=== PATIENT | female | born 1995 | race Caucasian/White ===

== ENCOUNTER → 2017-05-26 | Outpatient (CLI) | payer OTHER | END | disposition home or self-care (01) | LOC: C.PAPS 09:39 | PROVIDERS: ATTEND Obstetrics & Gynecology | DX: Z01.419 Encounter for gynecological examination (general) (routine) without abnormal findings (principal) ==

== ENCOUNTER 2020-02-21 07:33 | Inpatient (IN) ==
[2020-02-21] MEDS ORDERED: OXYTOCIN 30 UNITS/500 ML BAG IV PRN ×2 (08:16)
[2020-02-21 08:30] LABS: Hematocrit (blood only) 35.1 % (37-47); Hemoglobin 11.9 g/dL (12.0-16.0); Mean Corpuscular Hemoglobin 30.5 pg (25-34); Mean Platelet Volume 8.9 fL (7.4-10.4); Platelet Count 191 K/uL (130-400); RDW Coefficient of Variation 13.2 % (11.5-14.5); RDW Standard Deviation 43.2 fL (36.4-46.3); White Blood Count 7.92 K/uL (4.8-10.8)
[2020-02-21 08:33] LABS: Mean Corpuscular Hgb Conc 33.9 g/dL (32-36)
--- NOTE | 2020-02-21 08:39 | History & Physical Report ---
Date of Service February 21, 2020 Assessment & Plan (1) Prolonged , antepartum: cervix still needs ripening. Discussed another attempt at sevilla placement or proceeding with cytotec. r/b of both reviewed. She would like to start with cytotec. Then consider pit +/- sevilla. arom when indicated. fetus category one. anticipate . History of Present Illness Chief Complaint: induction Primary Care Provider: JAROD Guzman Patient is a 24yowf with iup at 41 weeks who presents to labor and delivery for postdates induction. Patient notes some intermittent contractions. no lof/vb. +fm. has essentially been uncomplicated. Attempt to place sevilla for cervical ripening last night was unsuccessful. labs--O+/ab-/ri/rprnr/hepb-/hiv-/gc/ct 1/panorama low risk/ gtt x 2 nl/ gbs neg/ declined cf/sma/afp Allergies Allergy/AdvReac Type Severity Reaction Status Date / Time No Known Allergies Allergy Verified 02/20/20 12:36 Home Medications Home Medications Medication Instructions Recorded Confirmed Type [id number] oil 1 tab PO DAILY 07/12/19 02/21/20 History ferrous sulfate 325 mg (65 mg 325 mg PO DAILY 12/13/19 02/21/20 History iron) tablet,delayed release Patient History Medical History Encounter for anatomic survey Varicella Surgical History No pertinent past surgical history Family History Grandfather (Paternal) Cardiac disorder Myocardial infarction Uncle Coronary heart disease Hypercholesteremia Father Hypercholesteremia Hypertension Mother Hypertension Thyroid disease Multiple gestation Grandmother (Maternal) Malignant neoplasm of cervix Sister Gestational diabetes Social History Preferred Language: Kyr[place] Communication Ability: Effective Visual Impairment: No Limitations Hearing Ability: Normal Acoustic Engineer Required: No Beliefs That Will Affect Care: None marital status: marital status details: Harris Mehta (25) [phone] Current Living Situation: Spouse current occupational status: employed 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 @ [employer] Other Information That Helps Us Care for You: No Feels Safe at Home: Yes Safety Concerns: Feels Safe At This Time Smoking Status: Never smoker Do You Dip or Chew Tobacco: No ; Second Hand Exposure: No ; Tobacco Cessation Education Requested by Patient: No Hx Alcohol Use: No Hx Substance Use: No Dental Care, Regularly: Yes Physical Activity Frequency: 1-2 Times per Week Seatbelt Use: always 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
[2020-02-21] MEDS: miSOPROStoL 25 MCG TAB PV SCH ×4 (08:59→21:29)
[2020-02-21] MEDS ORDERED: miSOPROStoL 25 MCG TAB PV SCH (12:00)
--- NOTE | 2020-02-21 13:25 | Labor Progress Brief Note ---
Date of Service February 21, 2020 Subjective notes some cramping Assessment & Plan (1) Prolonged , antepartum: Start pitocin. epidural on demand. arom when appropriate. fetus category one. anticipate . Physical Exam Constitutional: WD/WN, vitals as above Gastrointestinal (Abdomen): soft, gravid Psychiatric: A+Ox3, euthymic affect Genitourinary: cx --initially tight Attempted to place sevilla but balloon kept popping out. rechecked toco--q1-3min, too frequent for another cytotec efm--145 with mod variability, accels to 160s, no decels Results & Data Vital Signs (Past 12 Hours) Vital Signs Temp Pulse Resp BP 02/21/20 11:28 36.7 C 85 18 110/70 02/21/20 07:42 36.5 C 92 H 18 119/69 02/21/20 07:40 36.6 C 92 H 18 119/69 Coding Level of Care Code None Diagnoses Prolonged , antepartum O48.1
[2020-02-21] MEDS: LACTATED RINGER'S 1,000 ML IV PRN ×3 (13:50→22:38)
--- NOTE | 2020-02-21 18:30 | Labor Progress Brief Note ---
Date of Service February 21, 2020 Subjective noting some contractions and starting to become more uncomfortable Assessment & Plan (1) Prolonged , antepartum: Discussed likely our next intervention will be arom. I would want to do this now , with or without epidural. they are unsure of how they wish to proceed. Do not need to do arom at this time, but may stay at this spot for a prolonged period of time. Discussed that I am in favor of a more active management strategy but no reason why we absolutely have to. They are discussing. Physical Exam Constitutional: WD/WN, vitals as above Psychiatric: A+Ox3, euthymic affect Genitourinary: cx--unchanged toco--q1.5-2, pit at 13 efm--145 with mod variability, small accels, no decels Results & Data Vital Signs (Past 12 Hours) Vital Signs Temp Pulse Resp BP 02/21/20 17:20 36.8 C 80 18 114/73 02/21/20 16:32 86 20 111/67 02/21/20 15:36 84 18 125/73 02/21/20 14:50 78 20 109/74 02/21/20 13:46 36.5 C 93 H 18 118/69 02/21/20 13:45 36.5 C 18 02/21/20 11:28 36.7 C 85 18 110/70 02/21/20 07:42 36.5 C 92 H 18 119/69 02/21/20 07:40 36.6 C 92 H 18 119/69 Coding Level of Care Code None Diagnoses Prolonged , antepartum O48.1
--- NOTE | 2020-02-21 19:38 | Labor Progress Brief Note ---
Date of Service February 21, 2020 Subjective wants to proceed with arom. no epidural as of now. Assessment & Plan (1) Prolonged , antepartum: continue pitocin, epidural on demand, anticipate . Physical Exam Constitutional: WD/WN, vitals as above Psychiatric: A+Ox3, euthymic affect Genitourinary: cx--tight 3/50/-2 arom--clear toco--q1.5-3, some longer spaces efm--140s with mod variability, accels to 160s, no decels Results & Data Vital Signs (Past 12 Hours) Vital Signs Temp Pulse Resp BP 02/21/20 19:13 36.7 C 16 02/21/20 19:04 81 114/77 02/21/20 18:42 36.7 C 75 20 116/64 02/21/20 17:20 36.8 C 80 18 114/73 02/21/20 16:32 86 20 111/67 02/21/20 15:36 84 18 125/73 02/21/20 14:50 78 20 109/74 02/21/20 13:46 36.5 C 93 H 18 118/69 02/21/20 13:45 36.5 C 18 02/21/20 11:28 36.7 C 85 18 110/70 02/21/20 07:42 36.5 C 92 H 18 119/69 02/21/20 07:40 36.6 C 92 H 18 119/69 Coding Level of Care Code None Diagnoses Prolonged , antepartum O48.1
[2020-02-21] MEDS ORDERED: BUPIVACAINE 0.25% 30 ML VIAL ONE (20:00)
[2020-02-21] MEDS ORDERED: fentaNYL citrate 100 MCG/2 ML VIAL ONE (20:00)
[2020-02-21] MEDS ORDERED: ePHEDrine sulfate 50 MG/ML AMP ONE (20:00)
[2020-02-21] MEDS ORDERED: fentaNYL 2MCG/ML ROPIV 1.25MG/ML 100 ML BAG EPI ONE (20:01)
[2020-02-21] MEDS ORDERED: NALOXONE HCL 0.4 MG/1 ML VIAL/CARP IV PRN (20:43)
[2020-02-21] MEDS ORDERED: ONDANSETRON INJ 2 MG/ML 2 ML VIAL IV PRN (20:43)
[2020-02-21] MEDS ORDERED: NALOXONE HCL 1 MG in SODIUM CHLORIDE 0.9% 1000ML 1,000 ML IV PRN (20:43)
[2020-02-21] MEDS ORDERED: ePHEDrine sulfate 50 MG/ML AMP IV PRN (20:43)
[2020-02-21] MEDS ORDERED: NALBUPHINE HCL INJ 10 MG/ML AMP IV PRN (20:43)
[2020-02-21] MEDS ORDERED: PROMETHAZINE HCL 6.25 MG in SODIUM CHLORIDE 0.9% 50 ML IV PRN (20:43)
[2020-02-21] MEDS ORDERED: DiphenhydrAMINE HCL 50 MG/ML VIAL IV PRN (20:43)
--- NOTE | 2020-02-21 20:43 | Anesthesiology Consultation ---
Date of Service February 21, 2020 Assessment & Plan (1) Encounter for pre-operative examination: Chart Review Chart Review: Acceptable Risk for Surgery and Patient NOT seen in Pre Admission Testing Consults Requested none ASA ASA2 Proposed Anesthesia Anesthesia Type: Labor Epidural Risk / Benefits Reviewed With: PT / POA / Parent / Guardian, Accepts Plan and Informed Consent Obtained History Height/Weight Height: 5 ft 5 in Weight: 74.843 kg Allergies Allergy/AdvReac Type Severity Reaction Status Date / Time No Known Allergies Allergy Verified 02/20/20 12:36 Medications Home Medications Medication Instructions Recorded Confirmed Last Taken [id number] oil 1 tab PO DAILY 07/12/19 02/21/20 02/21/20 ferrous sulfate 325 mg (65 mg 325 mg PO DAILY 12/13/19 02/21/20 02/21/20 iron) tablet,delayed release Active Medications Generic Name Dose Route Start Last Admin Trade Name Freq PRN Reason Stop Dose Admin Lactated Ringer's 1,000 mls @ 125 mls/hr 02/21/20 08:16 02/21/20 20:22 Lr IV 02/23/20 08:15 125 mls/hr .Q8H PRN Infusion L&D Protocol Protocol Oxytocin 30 units in 500 mls @ 17 mls/hr 02/21/20 08:16 02/21/20 20:05 Pitocin IV 02/23/20 08:15 1.02 units/hr .Q24H PRN 17 mls/hr Labor Induction/Augmentation Titration Protocol 1.02 UNITS/HR Misoprostol 25 mcg 02/21/20 09:00 02/21/20 19:10 Cytotec PV 03/22/20 08:59 Not Given Q4 JACKELIN NPO Date Last Intake of Fluids: 02/21/20 Time Last Intake of Fluids: 19:00 Date Last Intake of Solids: 02/21/20 Past Medical History Medical History Encounter for anatomic survey Varicella Exercise / Class Metabolic Activity II 4-5 Yardwork/Stairs/Walk up hill Past Family History Family History Grandfather (Paternal) Cardiac disorder Myocardial infarction Uncle Coronary heart disease Hypercholesteremia Father Hypercholesteremia Hypertension Mother Hypertension Thyroid disease Multiple gestation Grandmother (Maternal) Malignant neoplasm of cervix Sister Gestational diabetes Past Surgical History Surgical History No pertinent past surgical history Past Anesthesia History No Hx of Anesthesia Complications and No Family Hx of Anesthesia Complications History of PONV No Hx of PONV and No Hx of Motion Sickness Social History Smoking Status: Never smoker Do You Dip or Chew Tobacco: No Hx Alcohol Use: No Hx Substance Use: No substance use type: does not use Physical Exam Vital Signs Last Vital Signs Temp 36.7 C 02/21/20 19:13 Pulse 73 02/21/20 20:40 Resp 16 02/21/20 19:13 BP 113/76 02/21/20 20:40 Pulse Ox 100 02/21/20 20:37 ENMT Mouth: no dentition abnormality Thyromental Distance: > or= 3.5 Finger Breadths Mallampati Class: II Neck normal visual inspection Respiratory normal respiratory effort Auscultation: lungs clear to auscultation bilaterally Cardiovascular Rate/Rhythm: regular rate and regular rhythm Psychiatric Orientation: alert Testing Laboratory Results 02/21/20 08:23
--- NOTE | 2020-02-21 23:58 | Labor Progress Brief Note ---
Date of Service February 21, 2020 Subjective comfortable Assessment & Plan (1) Prolonged , antepartum: discussed the situation with patient and fob. fht have recovered since pit off, position changed. We are quite remote from delivery at this point. If unable to get into an adequate contraction pattern without nrfht, will need to proceed with c/s. They express understanding of this situation. Physical Exam Constitutional: WD/WN, vitals as above Psychiatric: A+Ox3, euthymic affect Genitourinary: cx--really unchanged per nursing and passed a couple of small clots toco--very dysfunctional labor pattern with contractions on top of one another and spacing efm--150s with min to mod variability, has had a few decels to 80s that happen when she has several contractions in a row. Pit off now and oxygen on. Results & Data Vital Signs (Past 12 Hours) Vital Signs Temp Pulse Resp BP Pulse Ox 02/21/20 23:53 71 109/62 100 02/21/20 23:48 67 100 02/21/20 23:43 65 100 02/21/20 23:38 73 109/74 99 02/21/20 23:33 77 100 02/21/20 23:28 102 H 100 02/21/20 23:23 91 H 97 02/21/20 23:22 80 107/72 02/21/20 23:21 80 91 02/21/20 23:18 68 100 02/21/20 23:13 67 98 02/21/20 23:08 71 98 02/21/20 23:07 70 113/67 02/21/20 23:03 68 98 02/21/20 22:58 65 98 02/21/20 22:53 69 99 02/21/20 22:52 69 108/62 02/21/20 22:48 64 98 02/21/20 22:43 79 98 02/21/20 22:40 37.0 C 16 02/21/20 22:38 73 98 02/21/20 22:37 84 116/66 02/21/20 22:33 70 97 02/21/20 22:28 69 97 02/21/20 22:24 80 116/63 02/21/20 22:23 78 97 02/21/20 22:18 69 97 02/21/20 22:13 72 97 02/21/20 22:08 73 111/63 98 02/21/20 22:05 16 02/21/20 22:03 70 98 02/21/20 21:58 74 98 02/21/20 21:53 73 98 02/21/20 21:52 74 116/65 02/21/20 21:47 75 98 02/21/20 21:42 72 98 02/21/20 21:37 70 116/65 98 02/21/20 21:32 66 99 02/21/20 21:27 72 99 02/21/20 21:22 77 124/76 98 02/21/20 21:17 75 98 02/21/20 21:16 73 101/63 02/21/20 21:12 76 98 02/21/20 21:11 69 100/64 02/21/20 21:07 82 98 02/21/20 21:06 75 100/66 02/21/20 21:02 79 99 02/21/20 21:00 69 104/72 02/21/20 20:57 68 98 02/21/20 20:56 71 110/67 02/21/20 20:54 71 18 105/65 02/21/20 20:52 78 110/66 99 02/21/20 20:50 72 114/70 02/21/20 20:47 69 99 02/21/20 20:46 36.7 C 18 02/21/20 20:44 68 114/72 02/21/20 20:42 90 118/68 99 02/21/20 20:40 73 18 113/76 02/21/20 20:38 67 110/70 02/21/20 20:37 82 100 02/21/20 20:34 86 114/83 02/21/20 20:32 80 100 02/21/20 20:27 87 99 02/21/20 20:22 86 99 02/21/20 20:17 85 98 02/21/20 20:12 80 98 02/21/20 20:08 80 118/61 02/21/20 20:07 80 99 02/21/20 20:02 75 98 02/21/20 19:57 75 98 02/21/20 19:52 76 97 02/21/20 19:13 36.7 C 16 02/21/20 19:04 81 114/77 02/21/20 18:42 36.7 C 75 20 116/64 02/21/20 17:20 36.8 C 80 18 114/73 02/21/20 16:32 86 20 111/67 02/21/20 15:36 84 18 125/73 02/21/20 14:50 78 20 109/74 02/21/20 13:46 36.5 C 93 H 18 118/69 02/21/20 13:45 36.5 C 18 Coding Level of Care Code None Diagnoses Prolonged , antepartum O48.1
[2020-02-22] MEDS: LACTATED RINGER'S 1,000 ML IV PRN ×3 (03:38→15:21)
--- NOTE | 2020-02-22 04:51 | Labor Progress Brief Note ---
Date of Service February 22, 2020 Subjective comfortable and sleeping Assessment & Plan (1) Prolonged , antepartum: Continue going up on the pit again. Had turned off and now restarted. Contractions actually spaced and there is a better pattern at this point . Baby tolerating this well. Physical Exam Constitutional: WD/WN, vitals as above Psychiatric: A+Ox3, euthymic affect Genitourinary: cx-- at last check toco--q3-4min, pit restarted efm--140s with mod variability, accels to 160s, no decels at this point. Results & Data Vital Signs (Past 12 Hours) Vital Signs Temp Pulse Resp BP Pulse Ox 02/22/20 04:43 65 99 02/22/20 04:38 65 111/72 99 02/22/20 04:33 69 99 02/22/20 04:28 66 99 02/22/20 04:23 64 110/71 100 02/22/20 04:18 62 99 02/22/20 04:13 63 99 02/22/20 04:08 71 16 99 02/22/20 04:07 69 109/72 02/22/20 04:03 67 99 02/22/20 03:58 63 100 02/22/20 03:53 68 109/68 99 02/22/20 03:48 72 100 02/22/20 03:45 36.7 C 16 02/22/20 03:43 69 100 02/22/20 03:38 64 111/72 100 02/22/20 03:33 72 100 02/22/20 03:28 77 100 02/22/20 03:24 96 H 108/73 02/22/20 03:23 104 H 97 02/22/20 03:22 86 92 02/22/20 03:18 71 98 02/22/20 03:13 63 98 02/22/20 03:08 71 98 02/22/20 03:07 71 124/80 02/22/20 03:03 66 97 02/22/20 02:58 62 98 02/22/20 02:53 70 124/81 98 02/22/20 02:48 66 97 02/22/20 02:43 69 98 02/22/20 02:38 64 98 02/22/20 02:37 66 116/77 02/22/20 02:33 66 98 02/22/20 02:28 61 99 02/22/20 02:23 68 99 02/22/20 02:22 67 122/79 02/22/20 02:18 70 99 02/22/20 02:13 36.7 C 92 H 18 98 02/22/20 02:08 75 98 02/22/20 02:07 74 106/66 02/22/20 02:03 72 97 02/22/20 01:58 64 98 02/22/20 01:53 72 103/70 98 02/22/20 01:48 71 99 02/22/20 01:43 74 98 02/22/20 01:38 69 98 02/22/20 01:37 70 100/66 02/22/20 01:33 68 99 02/22/20 01:29 18 02/22/20 01:28 66 98 02/22/20 01:23 68 99 02/22/20 01:22 70 104/62 02/22/20 01:18 68 98 02/22/20 01:13 68 99 02/22/20 01:08 70 98 02/22/20 01:07 68 100/70 02/22/20 01:03 71 98 02/22/20 00:58 64 99 02/22/20 00:53 66 99 02/22/20 00:52 74 100/69 02/22/20 00:48 71 99 02/22/20 00:43 80 99 02/22/20 00:38 71 100 02/22/20 00:37 36.7 C 74 18 100/70 02/22/20 00:33 71 99 02/22/20 00:28 71 100 02/22/20 00:23 75 100 02/22/20 00:22 81 102/67 02/22/20 00:18 77 100 02/22/20 00:16 90 92 02/22/20 00:13 74 100 02/22/20 00:08 75 100 02/22/20 00:07 76 116/74 02/22/20 00:03 108 H 100 02/21/20 23:58 87 100 02/21/20 23:53 71 109/62 100 02/21/20 23:48 67 100 02/21/20 23:43 65 100 02/21/20 23:38 73 109/74 99 04/28/20 23:33 77 100 02/21/20 23:28 102 H 100 02/21/20 23:23 91 H 97 02/21/20 23:22 80 107/72 02/21/20 23:21 80 91 02/21/20 23:18 68 100 02/21/20 23:13 67 98 02/21/20 23:08 71 98 02/21/20 23:07 70 113/67 02/21/20 23:03 68 98 02/21/20 22:58 65 98 02/21/20 22:53 69 99 02/21/20 22:52 69 108/62 02/21/20 22:48 64 98 02/21/20 22:43 79 98 02/21/20 22:40 37.0 C 16 02/21/20 22:38 73 98 02/21/20 22:37 84 116/66 02/21/20 22:33 70 97 02/21/20 22:28 69 97 02/21/20 22:24 80 116/63 02/21/20 22:23 78 97 02/21/20 22:18 69 97 02/21/20 22:13 72 97 02/21/20 22:08 73 111/63 98 02/21/20 22:05 16 02/21/20 22:03 70 98 02/21/20 21:58 74 98 02/21/20 21:53 73 98 02/21/20 21:52 74 116/65 02/21/20 21:47 75 98 02/21/20 21:42 72 98 02/21/20 21:37 70 116/65 98 02/21/20 21:32 66 99 02/21/20 21:27 72 99 02/21/20 21:22 77 124/76 98 02/21/20 21:17 75 98 02/21/20 21:16 73 101/63 02/21/20 21:12 76 98 02/21/20 21:11 69 100/64 02/21/20 21:07 82 98 02/21/20 21:06 75 100/66 02/21/20 21:02 79 99 02/21/20 21:00 69 104/72 02/21/20 20:57 68 98 02/21/20 20:56 71 110/67 02/21/20 20:54 71 18 105/65 02/21/20 20:52 78 110/66 99 02/21/20 20:50 72 114/70 02/21/20 20:47 69 99 02/21/20 20:46 36.7 C 18 02/21/20 20:44 68 114/72 02/21/20 20:42 90 118/68 99 02/21/20 20:40 73 18 113/76 02/21/20 20:38 67 110/70 02/21/20 20:37 82 100 02/21/20 20:34 86 114/83 02/21/20 20:32 80 100 02/21/20 20:27 87 99 02/21/20 20:22 86 99 02/21/20 20:17 85 98 02/21/20 20:12 80 98 02/21/20 20:08 80 118/61 02/21/20 20:07 80 99 02/21/20 20:02 75 98 02/21/20 19:57 75 98 02/21/20 19:52 76 97 02/21/20 19:13 36.7 C 16 02/21/20 19:04 81 114/77 02/21/20 18:42 36.7 C 75 20 116/64 02/21/20 17:20 36.8 C 80 18 114/73 Coding Level of Care Code None Diagnoses Prolonged , antepartum O48.1
[2020-02-22] MEDS: fentaNYL 2MCG/ML ROPIV 1.25MG/ML 100 ML BAG EPI PRN ×3 (05:38→14:41)
--- NOTE | 2020-02-22 07:35 | Labor Progress Brief Note ---
Date of Service February 22, 2020 Subjective comfortable Assessment & Plan (1) Prolonged , antepartum: Continue current management. arom for 12 hours. No s/s of infection. Starting to make some change and contraction pattern better. Physical Exam Constitutional: WD/WN, vitals as above Psychiatric: A+Ox3, euthymic affect Genitourinary: cx--4/80/-2 toco--q 2-4min, pit at 8 efm--150s with mod variability, small accels , no decels Results & Data Vital Signs (Past 12 Hours) Vital Signs Temp Pulse Resp BP Pulse Ox 02/22/20 07:28 79 97 02/22/20 07:23 70 116/74 96 02/22/20 07:18 71 97 02/22/20 07:13 84 97 02/22/20 07:08 73 97 02/22/20 07:07 36.8 C 70 18 114/77 02/22/20 07:03 74 96 02/22/20 06:58 63 96 02/22/20 06:53 61 112/69 98 02/22/20 06:48 63 96 02/22/20 06:43 61 96 02/22/20 06:38 62 96 02/22/20 06:37 63 116/75 02/22/20 06:33 63 97 02/22/20 06:28 67 98 02/22/20 06:23 69 113/74 98 02/22/20 06:18 69 98 02/22/20 06:13 75 98 02/22/20 06:09 74 111/71 02/22/20 06:08 91 H 98 02/22/20 06:03 65 97 02/22/20 05:58 66 97 02/22/20 05:53 63 97 02/22/20 05:52 63 111/71 02/22/20 05:48 67 98 02/22/20 05:43 91 H 98 02/22/20 05:38 65 98 02/22/20 05:37 63 111/77 02/22/20 05:33 36.9 C 63 18 98 02/22/20 05:28 66 97 02/22/20 05:23 63 97 02/22/20 05:22 66 120/76 02/22/20 05:18 64 97 02/22/20 05:13 62 97 02/22/20 05:09 16 02/22/20 05:08 67 98 02/22/20 05:07 75 115/74 02/22/20 05:03 69 98 02/22/20 04:58 69 99 02/22/20 04:53 62 99 02/22/20 04:52 70 119/75 02/22/20 04:48 68 99 02/22/20 04:43 65 99 02/22/20 04:38 65 111/72 99 02/22/20 04:33 69 99 02/22/20 04:28 66 99 02/22/20 04:23 64 110/71 100 02/22/20 04:18 62 99 02/22/20 04:13 63 99 02/22/20 04:08 71 16 99 02/22/20 04:07 69 109/72 02/22/20 04:03 67 99 02/22/20 03:58 63 100 02/22/20 03:53 68 109/68 99 02/22/20 03:48 72 100 02/22/20 03:45 36.7 C 16 02/22/20 03:43 69 100 02/22/20 03:38 64 111/72 100 02/22/20 03:33 72 100 02/22/20 03:28 77 100 02/22/20 03:24 96 H 108/73 02/22/20 03:23 104 H 97 02/22/20 03:22 86 92 02/22/20 03:18 71 98 02/22/20 03:13 63 98 02/22/20 03:08 71 98 02/22/20 03:07 71 124/80 02/22/20 03:03 66 97 02/22/20 02:58 62 98 02/22/20 02:53 70 124/81 98 02/22/20 02:48 66 97 02/22/20 02:43 69 98 02/22/20 02:38 64 98 02/22/20 02:37 66 116/77 02/22/20 02:33 66 98 02/22/20 02:28 61 99 02/22/20 02:23 68 99 02/22/20 02:22 67 122/79 02/22/20 02:18 70 99 02/22/20 02:13 36.7 C 92 H 18 98 02/22/20 02:08 75 98 02/22/20 02:07 74 106/66 02/22/20 02:03 72 97 02/22/20 01:58 64 98 02/22/20 01:53 72 103/70 98 02/22/20 01:48 71 99 02/22/20 01:43 74 98 02/22/20 01:38 69 98 02/22/20 01:37 70 100/66 02/22/20 01:33 68 99 02/22/20 01:29 18 02/22/20 01:28 66 98 02/22/20 01:23 68 99 02/22/20 01:22 70 104/62 02/22/20 01:18 68 98 02/22/20 01:13 68 99 02/22/20 01:08 70 98 02/22/20 01:07 68 100/70 02/22/20 01:03 71 98 02/22/20 00:58 64 99 02/22/20 00:53 66 99 02/22/20 00:52 74 100/69 02/22/20 00:48 71 99 02/22/20 00:43 80 99 02/22/20 00:38 71 100 02/22/20 00:37 36.7 C 74 18 100/70 02/22/20 00:33 71 99 02/22/20 00:28 71 100 02/22/20 00:23 75 100 02/22/20 00:22 81 102/67 02/22/20 00:18 77 100 02/22/20 00:16 90 92 02/22/20 00:13 74 100 02/22/20 00:08 75 100 02/22/20 00:07 76 116/74 02/22/20 00:03 108 H 100 02/21/20 23:58 87 100 02/21/20 23:53 71 109/62 100 02/21/20 23:48 67 100 02/21/20 23:43 65 100 02/21/20 23:38 73 109/74 99 02/21/20 23:33 77 100 02/21/20 23:28 102 H 100 02/21/20 23:23 91 H 97 02/21/20 23:22 80 107/72 02/21/20 23:21 80 91 02/21/20 23:18 68 100 02/21/20 23:13 67 98 02/21/20 23:08 71 98 02/21/20 23:07 70 113/67 02/21/20 23:03 68 98 02/21/20 22:58 65 98 02/21/20 22:53 69 99 02/21/20 22:52 69 108/62 02/21/20 22:48 64 98 02/21/20 22:43 79 98 02/21/20 22:40 37.0 C 16 02/21/20 22:38 73 98 02/21/20 22:37 84 116/66 02/21/20 22:33 70 97 02/21/20 22:28 69 97 02/21/20 22:24 80 116/63 02/21/20 22:23 78 97 02/21/20 22:18 69 97 02/21/20 22:13 72 97 02/21/20 22:08 73 111/63 98 02/21/20 22:05 16 02/21/20 22:03 70 98 02/21/20 21:58 74 98 02/21/20 21:53 73 98 02/21/20 21:52 74 116/65 02/21/20 21:47 75 98 02/21/20 21:42 72 98 02/21/20 21:37 70 116/65 98 02/21/20 21:32 66 99 02/21/20 21:27 72 99 02/21/20 21:22 77 124/76 98 02/21/20 21:17 75 98 02/21/20 21:16 73 101/63 02/21/20 21:12 76 98 02/21/20 21:11 69 100/64 02/21/20 21:07 82 98 02/21/20 21:06 75 100/66 02/21/20 21:02 79 99 02/21/20 21:00 69 104/72 02/21/20 20:57 68 98 02/21/20 20:56 71 110/67 02/21/20 20:54 71 18 105/65 02/21/20 20:52 78 110/66 99 02/21/20 20:50 72 114/70 02/21/20 20:47 69 99 02/21/20 20:46 36.7 C 18 02/21/20 20:44 68 114/72 02/21/20 20:42 90 118/68 99 02/21/20 20:40 73 18 113/76 02/21/20 20:38 67 110/70 02/21/20 20:37 82 100 02/21/20 20:34 86 114/83 02/21/20 20:32 80 100 02/21/20 20:27 87 99 02/21/20 20:22 86 99 02/21/20 20:17 85 98 02/21/20 20:12 80 98 02/21/20 20:08 80 118/61 02/21/20 20:07 80 99 02/21/20 20:02 75 98 02/21/20 19:57 75 98 02/21/20 19:52 76 97 Coding Level of Care Code None Diagnoses Prolonged , antepartum O48.1
--- NOTE | 2020-02-22 10:35 | Labor Progress Brief Note ---
Date of Service February 22, 2020 Subjective Reason For Note: Routine Evaluation late entry. pt comfortable, no complaints. aware i am assuming care. Assessment & Plan (1) Prolonged , antepartum: induction. good cx change. c/w pit. fhts categ 1. Physical Exam Constitutional: WD/WN, vitals as above Genitourinary: Manual OB Exam: + cervical dilation (8), + cervical effacement 100% and + station 0 OB Exam Monitor Tracing: + external FHT monitor used (140 mod variability), + external uterine monitor used (q2), + category I and + normal FHT variability Results & Data Vital Signs (Past 12 Hours) Vital Signs Temp Pulse Resp BP Pulse Ox 02/22/20 10:28 69 97 02/22/20 10:23 62 115/67 97 02/22/20 10:18 66 97 02/22/20 10:13 64 97 02/22/20 10:08 68 97 02/22/20 10:03 64 98 02/22/20 09:58 65 98 02/22/20 09:54 67 112/67 02/22/20 09:53 64 97 02/22/20 09:48 88 98 02/22/20 09:43 59 L 97 02/22/20 09:38 64 96 02/22/20 09:33 66 96 02/22/20 09:28 70 96 02/22/20 09:24 68 122/77 02/22/20 09:23 70 96 02/22/20 09:18 71 97 02/22/20 09:15 98.1 F 16 02/22/20 09:13 74 97 02/22/20 09:08 74 96 02/22/20 09:03 72 96 02/22/20 08:58 69 96 02/22/20 08:55 73 113/71 02/22/20 08:53 77 97 02/22/20 08:48 81 97 02/22/20 08:43 82 96 02/22/20 08:38 74 96 02/22/20 08:33 72 96 02/22/20 08:28 74 96 02/22/20 08:23 84 18 120/68 96 02/22/20 08:18 80 96 02/22/20 08:13 76 97 02/22/20 08:08 73 97 02/22/20 08:03 77 96 02/22/20 07:58 75 97 02/22/20 07:54 73 18 120/73 02/22/20 07:53 74 96 02/22/20 07:48 65 97 02/22/20 07:43 65 98 02/22/20 07:38 70 97 02/22/20 07:33 75 97 02/22/20 07:28 79 97 02/22/20 07:23 70 116/74 96 02/22/20 07:18 71 97 02/22/20 07:13 84 97 02/22/20 07:08 73 97 02/22/20 07:07 98.2 F 70 18 114/77 02/22/20 07:03 74 96 02/22/20 06:58 63 96 02/22/20 06:53 61 112/69 98 02/22/20 06:48 63 96 02/22/20 06:43 61 96 02/22/20 06:38 62 96 02/22/20 06:37 63 116/75 02/22/20 06:33 63 97 02/22/20 06:28 67 98 02/22/20 06:23 69 113/74 98 02/22/20 06:18 69 98 02/22/20 06:13 75 98 02/22/20 06:09 74 111/71 02/22/20 06:08 91 H 98 02/22/20 06:03 65 97 02/22/20 05:58 66 97 02/22/20 05:53 63 97 02/22/20 05:52 63 111/71 02/22/20 05:48 67 98 02/22/20 05:43 91 H 98 02/22/20 05:38 65 98 02/22/20 05:37 63 111/77 02/22/20 05:33 98.4 F 63 18 98 02/22/20 05:28 66 97 02/22/20 05:23 63 97 02/22/20 05:22 66 120/76 02/22/20 05:18 64 97 02/22/20 05:13 62 97 02/22/20 05:09 16 02/22/20 05:08 67 98 02/22/20 05:07 75 115/74 02/22/20 05:03 69 98 02/22/20 04:58 69 99 02/22/20 04:53 62 99 02/22/20 04:52 70 119/75 02/22/20 04:48 68 99 02/22/20 04:43 65 99 02/22/20 04:38 65 111/72 99 02/22/20 04:33 69 99 02/22/20 04:28 66 99 02/22/20 04:23 64 110/71 100 02/22/20 04:18 62 99 02/22/20 04:13 63 99 02/22/20 04:08 71 16 99 02/22/20 04:07 69 109/72 02/22/20 04:03 67 99 02/22/20 03:58 63 100 02/22/20 03:53 68 109/68 99 02/22/20 03:48 72 100 02/22/20 03:45 98.1 F 16 02/22/20 03:43 69 100 02/22/20 03:38 64 111/72 100 02/22/20 03:33 72 100 02/22/20 03:28 77 100 02/22/20 03:24 96 H 108/73 02/22/20 03:23 104 H 97 02/22/20 03:22 86 92 02/22/20 03:18 71 98 02/22/20 03:13 63 98 02/22/20 03:08 71 98 02/22/20 03:07 71 124/80 02/22/20 03:03 66 97 02/22/20 02:58 62 98 02/22/20 02:53 70 124/81 98 02/22/20 02:48 66 97 02/22/20 02:43 69 98 02/22/20 02:38 64 98 02/22/20 02:37 66 116/77 02/22/20 02:33 66 98 02/22/20 02:28 61 99 02/22/20 02:23 68 99 02/22/20 02:22 67 122/79 02/22/20 02:18 70 99 02/22/20 02:13 98.1 F 92 H 18 98 02/22/20 02:08 75 98 02/22/20 02:07 74 106/66 02/22/20 02:03 72 97 02/22/20 01:58 64 98 02/22/20 01:53 72 103/70 98 04/29/20 01:48 71 99 02/22/20 01:43 74 98 02/22/20 01:38 69 98 02/22/20 01:37 70 100/66 02/22/20 01:33 68 99 02/22/20 01:29 18 02/22/20 01:28 66 98 02/22/20 01:23 68 99 02/22/20 01:22 70 104/62 02/22/20 01:18 68 98 02/22/20 01:13 68 99 02/22/20 01:08 70 98 02/22/20 01:07 68 100/70 02/22/20 01:03 71 98 02/22/20 00:58 64 99 02/22/20 00:53 66 99 02/22/20 00:52 74 100/69 02/22/20 00:48 71 99 02/22/20 00:43 80 99 02/22/20 00:38 71 100 02/22/20 00:37 98.1 F 74 18 100/70 02/22/20 00:33 71 99 02/22/20 00:28 71 100 02/22/20 00:23 75 100 02/22/20 00:22 81 102/67 02/22/20 00:18 77 100 02/22/20 00:16 90 92 02/22/20 00:13 74 100 02/22/20 00:08 75 100 02/22/20 00:07 76 116/74 02/22/20 00:03 108 H 100 02/21/20 23:58 87 100 02/21/20 23:53 71 109/62 100 02/21/20 23:48 67 100 02/21/20 23:43 65 100 02/21/20 23:38 73 109/74 99 02/21/20 23:33 77 100 02/21/20 23:28 102 H 100 02/21/20 23:23 91 H 97 02/21/20 23:22 80 107/72 02/21/20 23:21 80 91 02/21/20 23:18 68 100 02/21/20 23:13 67 98 02/21/20 23:08 71 98 02/21/20 23:07 70 113/67 02/21/20 23:03 68 98 02/21/20 22:58 65 98 02/21/20 22:53 69 99 02/21/20 22:52 69 108/62 02/21/20 22:48 64 98 02/21/20 22:43 79 98 02/21/20 22:40 98.6 F 16 02/21/20 22:38 73 98 02/21/20 22:37 84 116/66 Coding Level of Care Code None Diagnoses Prolonged , antepartum O48.1
--- NOTE | 2020-02-22 12:52 | Labor Progress Brief Note ---
Date of Service February 22, 2020 Subjective Reason For Note: Change In Status and Other pt pushing. Assessment & Plan (1) Prolonged , antepartum: cont 2nd stage, due to decel earlier pitocin was briefly stopped but restarted within minutes per nurse. fhts categ2. Physical Exam Constitutional: WD/WN, vitals as above Psychiatric: A+Ox3, euthymic affect Genitourinary: Manual OB Exam: + cervical dilation 10 cm and + cervical effacement (per nurse) 100% OB Exam Monitor Tracing: + external FHT monitor used (155 mod variability, variables), + external uterine monitor used (q3-5), + category II and + normal FHT variability Results & Data Vital Signs (Past 12 Hours) Vital Signs Temp Pulse Resp BP Pulse Ox 02/22/20 12:44 90 85 L 02/22/20 12:43 87 99 02/22/20 12:39 83 90 02/22/20 12:38 89 100 02/22/20 12:33 86 99 02/22/20 12:32 71 91 02/22/20 12:28 67 100 02/22/20 12:24 83 132/78 92 02/22/20 12:23 74 95 02/22/20 12:18 73 100 02/22/20 12:13 75 99 02/22/20 12:08 71 97 02/22/20 12:03 76 98 02/22/20 11:58 72 98 02/22/20 11:54 76 135/64 02/22/20 11:53 80 97 02/22/20 11:48 66 98 02/22/20 11:43 71 98 02/22/20 11:38 66 100 02/22/20 11:33 68 99 02/22/20 11:28 74 99 02/22/20 11:24 73 126/84 02/22/20 11:23 68 99 02/22/20 11:18 66 99 02/22/20 11:13 67 98 02/22/20 11:08 98.6 F 76 18 99 02/22/20 11:03 77 98 02/22/20 10:58 67 97 02/22/20 10:53 71 122/68 98 02/22/20 10:48 67 97 02/22/20 10:43 70 97 02/22/20 10:38 66 96 02/22/20 10:33 65 96 02/22/20 10:28 69 97 02/22/20 10:23 62 18 115/67 97 02/22/20 10:18 66 97 02/22/20 10:13 64 97 02/22/20 10:08 68 97 02/22/20 10:03 64 98 02/22/20 09:58 65 98 02/22/20 09:54 67 112/67 02/22/20 09:53 64 97 02/22/20 09:48 88 98 02/22/20 09:43 59 L 97 02/22/20 09:38 64 96 02/22/20 09:33 66 96 02/22/20 09:28 70 96 02/22/20 09:24 68 122/77 02/22/20 09:23 70 96 02/22/20 09:18 71 97 02/22/20 09:15 98.1 F 16 02/22/20 09:13 74 97 02/22/20 09:08 74 96 02/22/20 09:03 72 96 02/22/20 08:58 69 96 02/22/20 08:55 73 113/71 02/22/20 08:53 77 97 02/22/20 08:48 81 97 02/22/20 08:43 82 96 02/22/20 08:38 74 96 02/22/20 08:33 72 96 02/22/20 08:28 74 96 02/22/20 08:23 84 18 120/68 96 02/22/20 08:18 80 96 02/22/20 08:13 76 97 02/22/20 08:08 73 97 02/22/20 08:03 77 96 02/22/20 07:58 75 97 02/22/20 07:54 73 18 120/73 02/22/20 07:53 74 96 02/22/20 07:48 65 97 02/22/20 07:43 65 98 02/22/20 07:38 70 97 02/22/20 07:33 75 97 02/22/20 07:28 79 97 02/22/20 07:23 70 116/74 96 02/22/20 07:18 71 97 02/22/20 07:13 84 97 02/22/20 07:08 73 97 02/22/20 07:07 98.2 F 70 18 114/77 02/22/20 07:03 74 96 02/22/20 06:58 63 96 02/22/20 06:53 61 112/69 98 02/22/20 06:48 63 96 02/22/20 06:43 61 96 02/22/20 06:38 62 96 02/22/20 06:37 63 116/75 02/22/20 06:33 63 97 02/22/20 06:28 67 98 02/22/20 06:23 69 113/74 98 02/22/20 06:18 69 98 02/22/20 06:13 75 98 02/22/20 06:09 74 111/71 02/22/20 06:08 91 H 98 02/22/20 06:03 65 97 02/22/20 05:58 66 97 02/22/20 05:53 63 97 02/22/20 05:52 63 111/71 02/22/20 05:48 67 98 02/22/20 05:43 91 H 98 02/22/20 05:38 65 98 02/22/20 05:37 63 111/77 02/22/20 05:33 98.4 F 63 18 98 02/22/20 05:28 66 97 02/22/20 05:23 63 97 02/22/20 05:22 66 120/76 02/22/20 05:18 64 97 02/22/20 05:13 62 97 02/22/20 05:09 16 02/22/20 05:08 67 98 02/22/20 05:07 75 115/74 02/22/20 05:03 69 98 02/22/20 04:58 69 99 02/22/20 04:53 62 99 02/22/20 04:52 70 119/75 02/22/20 04:48 68 99 02/22/20 04:43 65 99 02/22/20 04:38 65 111/72 99 02/22/20 04:33 69 99 02/22/20 04:28 66 99 02/22/20 04:23 64 110/71 100 02/22/20 04:18 62 99 02/22/20 04:13 63 99 02/22/20 04:08 71 16 99 02/22/20 04:07 69 109/72 02/22/20 04:03 67 99 04/29/20 03:58 63 100 02/22/20 03:53 68 109/68 99 02/22/20 03:48 72 100 02/22/20 03:45 98.1 F 16 02/22/20 03:43 69 100 02/22/20 03:38 64 111/72 100 02/22/20 03:33 72 100 02/22/20 03:28 77 100 02/22/20 03:24 96 H 108/73 02/22/20 03:23 104 H 97 02/22/20 03:22 86 92 02/22/20 03:18 71 98 02/22/20 03:13 63 98 02/22/20 03:08 71 98 02/22/20 03:07 71 124/80 02/22/20 03:03 66 97 02/22/20 02:58 62 98 02/22/20 02:53 70 124/81 98 02/22/20 02:48 66 97 02/22/20 02:43 69 98 02/22/20 02:38 64 98 02/22/20 02:37 66 116/77 02/22/20 02:33 66 98 02/22/20 02:28 61 99 02/22/20 02:23 68 99 02/22/20 02:22 67 122/79 02/22/20 02:18 70 99 02/22/20 02:13 98.1 F 92 H 18 98 02/22/20 02:08 75 98 02/22/20 02:07 74 106/66 02/22/20 02:03 72 97 02/22/20 01:58 64 98 02/22/20 01:53 72 103/70 98 02/22/20 01:48 71 99 02/22/20 01:43 74 98 02/22/20 01:38 69 98 02/22/20 01:37 70 100/66 02/22/20 01:33 68 99 02/22/20 01:29 18 02/22/20 01:28 66 98 02/22/20 01:23 68 99 02/22/20 01:22 70 104/62 02/22/20 01:18 68 98 02/22/20 01:13 68 99 02/22/20 01:08 70 98 02/22/20 01:07 68 100/70 02/22/20 01:03 71 98 02/22/20 00:58 64 99 02/22/20 00:53 66 99 02/22/20 00:52 74 100/69 Coding Level of Care Code None Diagnoses Prolonged , antepartum O48.1
--- NOTE | 2020-02-22 15:07 | Labor Progress Brief Note ---
Date of Service February 22, 2020 Subjective Reason For Note: Inadequate Pain Control and Other pt in pain. feels lower pelvic pain but pressure to push. Assessment & Plan (1) Prolonged , antepartum: pushing effectively, 2hrs, will try to get her more comfortable and cont 2nd stage. fhts categ 2 with occas variables, +spont accels. she and partner agreeable. Physical Exam Constitutional: WD/WN, vitals as above Psychiatric: A+Ox3, euthymic affect Genitourinary: Manual OB Exam: + cervical dilation 10 cm, + cervical effacement 100% and + station + 2 (molding) OB Exam Monitor Tracing: + external FHT monitor used (155 mod variability, ), + external uterine monitor used (q2-3), + category I and + normal FHT variability Results & Data Vital Signs (Past 12 Hours) Vital Signs Temp Pulse Resp BP Pulse Ox 02/22/20 15:03 77 97 02/22/20 15:00 102 H 90 02/22/20 14:59 73 124/71 02/22/20 14:58 84 97 02/22/20 14:55 89 88 L 02/22/20 14:53 90 114/68 95 02/22/20 14:48 98 H 99 02/22/20 14:43 98 H 99 02/22/20 14:38 112 H 99 02/22/20 14:33 110 H 96 02/22/20 14:28 111 H 100 02/22/20 14:25 114 H 123/96 02/22/20 14:23 102 H 100 02/22/20 14:18 110 H 100 02/22/20 14:13 77 100 02/22/20 14:08 79 100 02/22/20 14:03 83 100 02/22/20 13:58 74 100 02/22/20 13:54 74 20 106/63 02/22/20 13:53 75 99 02/22/20 13:51 114 H 94 02/22/20 13:48 94 H 98 02/22/20 13:43 99 H 98 02/22/20 13:38 103 H 98 02/22/20 13:37 101 H 92 02/22/20 13:33 99 H 98 02/22/20 13:28 108 H 100 02/22/20 13:23 93 H 114/59 L 99 02/22/20 13:21 87 92 02/22/20 13:18 88 100 02/22/20 13:13 97 H 92 02/22/20 13:08 86 100 02/22/20 13:07 99 H 83 L 02/22/20 13:03 118 H 99 02/22/20 13:00 98.1 F 20 02/22/20 12:59 94 H 92 02/22/20 12:58 84 97 02/22/20 12:53 81 115/67 99 02/22/20 12:51 83 83 L 02/22/20 12:48 98 H 100 02/22/20 12:44 90 85 L 02/22/20 12:43 87 99 02/22/20 12:39 83 90 02/22/20 12:38 89 100 02/22/20 12:33 86 99 02/22/20 12:32 71 91 02/22/20 12:28 67 100 02/22/20 12:24 83 132/78 92 02/22/20 12:23 74 95 02/22/20 12:18 73 100 02/22/20 12:13 75 99 02/22/20 12:08 71 97 02/22/20 12:03 76 98 02/22/20 11:58 72 98 02/22/20 11:54 76 135/64 02/22/20 11:53 80 97 02/22/20 11:48 66 98 02/22/20 11:43 71 98 02/22/20 11:38 66 100 02/22/20 11:33 68 99 02/22/20 11:28 74 99 02/22/20 11:24 73 126/84 02/22/20 11:23 68 99 02/22/20 11:18 66 99 02/22/20 11:13 67 98 02/22/20 11:08 98.6 F 76 18 99 02/22/20 11:03 77 98 02/22/20 10:58 67 97 02/22/20 10:53 71 122/68 98 02/22/20 10:48 67 97 02/22/20 10:43 70 97 02/22/20 10:38 66 96 02/22/20 10:33 65 96 02/22/20 10:28 69 97 02/22/20 10:23 62 18 115/67 97 02/22/20 10:18 66 97 02/22/20 10:13 64 97 02/22/20 10:08 68 97 02/22/20 10:03 64 98 02/22/20 09:58 65 98 02/22/20 09:54 67 112/67 02/22/20 09:53 64 97 02/22/20 09:48 88 98 02/22/20 09:43 59 L 97 02/22/20 09:38 64 96 02/22/20 09:33 66 96 02/22/20 09:28 70 96 02/22/20 09:24 68 122/77 02/22/20 09:23 70 96 02/22/20 09:18 71 97 02/22/20 09:15 98.1 F 16 02/22/20 09:13 74 97 02/22/20 09:08 74 96 02/22/20 09:03 72 96 02/22/20 08:58 69 96 02/22/20 08:55 73 113/71 02/22/20 08:53 77 97 02/22/20 08:48 81 97 02/22/20 08:43 82 96 02/22/20 08:38 74 96 02/22/20 08:33 72 96 02/22/20 08:28 74 96 02/22/20 08:23 84 18 120/68 96 02/22/20 08:18 80 96 02/22/20 08:13 76 97 02/22/20 08:08 73 97 02/22/20 08:03 77 96 02/22/20 07:58 75 97 02/22/20 07:54 73 18 120/73 02/22/20 07:53 74 96 02/22/20 07:48 65 97 02/22/20 07:43 65 98 02/22/20 07:38 70 97 02/22/20 07:33 75 97 02/22/20 07:28 79 97 02/22/20 07:23 70 116/74 96 02/22/20 07:18 71 97 02/22/20 07:13 84 97 02/22/20 07:08 73 97 02/22/20 07:07 98.2 F 70 18 114/77 02/22/20 07:03 74 96 02/22/20 06:58 63 96 02/22/20 06:53 61 112/69 98 02/22/20 06:48 63 96 02/22/20 06:43 61 96 02/22/20 06:38 62 96 02/22/20 06:37 63 116/75 02/22/20 06:33 63 97 02/22/20 06:28 67 98 02/22/20 06:23 69 113/74 98 02/22/20 06:18 69 98 02/22/20 06:13 75 98 02/22/20 06:09 74 111/71 02/22/20 06:08 91 H 98 02/22/20 06:03 65 97 02/22/20 05:58 66 97 02/22/20 05:53 63 97 02/22/20 05:52 63 111/71 02/22/20 05:48 67 98 02/22/20 05:43 91 H 98 02/22/20 05:38 65 98 02/22/20 05:37 63 111/77 02/22/20 05:33 98.4 F 63 18 98 02/22/20 05:28 66 97 02/22/20 05:23 63 97 02/22/20 05:22 66 120/76 02/22/20 05:18 64 97 02/22/20 05:13 62 97 02/22/20 05:09 16 02/22/20 05:08 67 98 02/22/20 05:07 75 115/74 02/22/20 05:03 69 98 02/22/20 04:58 69 99 02/22/20 04:53 62 99 02/22/20 04:52 70 119/75 02/22/20 04:48 68 99 02/22/20 04:43 65 99 02/22/20 04:38 65 111/72 99 02/22/20 04:33 69 99 02/22/20 04:28 66 99 02/22/20 04:23 64 110/71 100 02/22/20 04:18 62 99 02/22/20 04:13 63 99 02/22/20 04:08 71 16 99 02/22/20 04:07 69 109/72 02/22/20 04:03 67 99 02/22/20 03:58 63 100 02/22/20 03:53 68 109/68 99 02/22/20 03:48 72 100 02/22/20 03:45 98.1 F 16 02/22/20 03:43 69 100 02/22/20 03:38 64 111/72 100 02/22/20 03:33 72 100 02/22/20 03:28 77 100 02/22/20 03:24 96 H 108/73 02/22/20 03:23 104 H 97 02/22/20 03:22 86 92 02/22/20 03:18 71 98 02/22/20 03:13 63 98 02/22/20 03:08 71 98 02/22/20 03:07 71 124/80 Coding Level of Care Code None Diagnoses Prolonged , antepartum O48.1
[2020-02-22] MEDS ORDERED: LIDOCAINE HCL 2% MPF (LOCAL) 5 ML VIAL INFIL ONE (15:24)
--- NOTE | 2020-02-22 16:20 | Labor Progress Brief Note ---
Date of Service February 22, 2020 Subjective Reason For Note: Monitor Concern late entry Assessment & Plan (1) Prolonged , antepartum: pt pushing. fse was applied about 340pm and now on strip eval, suspecte baseline 170 mod variability, variable decels, no persistent late decels. ok to cont 2nd stage. she is more comfortable and agreeable to pushing. Physical Exam Genitourinary: OB Exam Monitor Tracing: + external FHT monitor used (? late decels, vs. variables, not traced well with pushing ), + scalp electrode used (FSE applied to eval fhts better), + external uterine monitor used (q2-3) and + category II Results & Data Vital Signs (Past 12 Hours) Vital Signs Temp Pulse Resp BP Pulse Ox 02/22/20 16:14 84 91 02/22/20 16:13 76 96 02/22/20 16:08 90 82 L 02/22/20 16:03 83 100 02/22/20 16:01 99 H 94 02/22/20 15:58 80 98 02/22/20 15:55 97 H 131/63 02/22/20 15:53 80 99 02/22/20 15:51 89 93 02/22/20 15:48 103 H 82 L 02/22/20 15:45 88 107/65 02/22/20 15:44 88 86 L 02/22/20 15:43 88 97 02/22/20 15:38 96 H 99 02/22/20 15:37 86 87 L 02/22/20 15:33 91 H 99 02/22/20 15:30 81 86 L 02/22/20 15:28 95 H 100 02/22/20 15:24 65 107/59 L 02/22/20 15:23 68 98 02/22/20 15:20 84 93 02/22/20 15:18 71 113/57 L 97 02/22/20 15:16 80 117/56 L 02/22/20 15:15 98.1 F 18 02/22/20 15:13 95 H 99 02/22/20 15:10 90 89 L 02/22/20 15:08 86 98 02/22/20 15:03 77 97 02/22/20 15:00 102 H 90 02/22/20 14:59 73 124/71 02/22/20 14:58 84 97 04/29/20 14:55 89 88 L 02/22/20 14:53 90 114/68 95 02/22/20 14:48 98 H 99 02/22/20 14:43 98 H 99 02/22/20 14:38 112 H 99 02/22/20 14:33 110 H 96 02/22/20 14:28 111 H 100 02/22/20 14:25 114 H 22 123/96 02/22/20 14:23 102 H 100 02/22/20 14:18 110 H 100 02/22/20 14:13 77 100 02/22/20 14:08 79 100 02/22/20 14:03 83 100 02/22/20 13:58 74 100 02/22/20 13:54 74 20 106/63 02/22/20 13:53 75 99 02/22/20 13:51 114 H 94 02/22/20 13:48 94 H 98 02/22/20 13:43 99 H 98 02/22/20 13:38 103 H 98 02/22/20 13:37 101 H 92 02/22/20 13:33 99 H 98 02/22/20 13:28 108 H 100 02/22/20 13:23 93 H 114/59 L 99 02/22/20 13:21 87 92 02/22/20 13:18 88 100 02/22/20 13:13 97 H 92 02/22/20 13:08 86 100 02/22/20 13:07 99 H 83 L 02/22/20 13:03 118 H 99 02/22/20 13:00 98.1 F 20 02/22/20 12:59 94 H 92 02/22/20 12:58 84 97 02/22/20 12:53 81 115/67 99 02/22/20 12:51 83 83 L 02/22/20 12:48 98 H 100 02/22/20 12:44 90 85 L 02/22/20 12:43 87 99 02/22/20 12:39 83 90 02/22/20 12:38 89 100 02/22/20 12:33 86 99 02/22/20 12:32 71 91 02/22/20 12:28 67 100 02/22/20 12:24 83 132/78 92 04/29/20 12:23 74 95 02/22/20 12:18 73 100 02/22/20 12:13 75 99 02/22/20 12:08 71 97 02/22/20 12:03 76 98 02/22/20 11:58 72 98 02/22/20 11:54 76 135/64 02/22/20 11:53 80 97 02/22/20 11:48 66 98 02/22/20 11:43 71 98 02/22/20 11:38 66 100 02/22/20 11:33 68 99 02/22/20 11:28 74 99 02/22/20 11:24 73 126/84 02/22/20 11:23 68 99 02/22/20 11:18 66 99 02/22/20 11:13 67 98 02/22/20 11:08 98.6 F 76 18 99 02/22/20 11:03 77 98 02/22/20 10:58 67 97 02/22/20 10:53 71 122/68 98 02/22/20 10:48 67 97 02/22/20 10:43 70 97 02/22/20 10:38 66 96 02/22/20 10:33 65 96 02/22/20 10:28 69 97 02/22/20 10:23 62 18 115/67 97 02/22/20 10:18 66 97 02/22/20 10:13 64 97 02/22/20 10:08 68 97 02/22/20 10:03 64 98 02/22/20 09:58 65 98 02/22/20 09:54 67 112/67 02/22/20 09:53 64 97 02/22/20 09:48 88 98 02/22/20 09:43 59 L 97 02/22/20 09:38 64 96 02/22/20 09:33 66 96 02/22/20 09:28 70 96 02/22/20 09:24 68 122/77 02/22/20 09:23 70 96 02/22/20 09:18 71 97 02/22/20 09:15 98.1 F 16 02/22/20 09:13 74 97 02/22/20 09:08 74 96 02/22/20 09:03 72 96 02/22/20 08:58 69 96 02/22/20 08:55 73 113/71 02/22/20 08:53 77 97 02/22/20 08:48 81 97 02/22/20 08:43 82 96 02/22/20 08:38 74 96 02/22/20 08:33 72 96 02/22/20 08:28 74 96 02/22/20 08:23 84 18 120/68 96 02/22/20 08:18 80 96 02/22/20 08:13 76 97 02/22/20 08:08 73 97 02/22/20 08:03 77 96 02/22/20 07:58 75 97 02/22/20 07:54 73 18 120/73 02/22/20 07:53 74 96 02/22/20 07:48 65 97 02/22/20 07:43 65 98 02/22/20 07:38 70 97 02/22/20 07:33 75 97 02/22/20 07:28 79 97 02/22/20 07:23 70 116/74 96 02/22/20 07:18 71 97 02/22/20 07:13 84 97 02/22/20 07:08 73 97 02/22/20 07:07 98.2 F 70 18 114/77 02/22/20 07:03 74 96 02/22/20 06:58 63 96 02/22/20 06:53 61 112/69 98 02/22/20 06:48 63 96 02/22/20 06:43 61 96 02/22/20 06:38 62 96 02/22/20 06:37 63 116/75 02/22/20 06:33 63 97 02/22/20 06:28 67 98 02/22/20 06:23 69 113/74 98 02/22/20 06:18 69 98 02/22/20 06:13 75 98 02/22/20 06:09 74 111/71 02/22/20 06:08 91 H 98 02/22/20 06:03 65 97 02/22/20 05:58 66 97 02/22/20 05:53 63 97 02/22/20 05:52 63 111/71 02/22/20 05:48 67 98 02/22/20 05:43 91 H 98 02/22/20 05:38 65 98 02/22/20 05:37 63 111/77 02/22/20 05:33 98.4 F 63 18 98 02/22/20 05:28 66 97 02/22/20 05:23 63 97 02/22/20 05:22 66 120/76 02/22/20 05:18 64 97 02/22/20 05:13 62 97 02/22/20 05:09 16 02/22/20 05:08 67 98 02/22/20 05:07 75 115/74 02/22/20 05:03 69 98 02/22/20 04:58 69 99 02/22/20 04:53 62 99 02/22/20 04:52 70 119/75 02/22/20 04:48 68 99 02/22/20 04:43 65 99 02/22/20 04:38 65 111/72 99 02/22/20 04:33 69 99 02/22/20 04:28 66 99 02/22/20 04:23 64 110/71 100 02/22/20 04:18 62 99 Coding Level of Care Code None Diagnoses Prolonged , antepartum O48.1
--- NOTE | 2020-02-22 17:09 | Labor Progress Brief Note ---
Date of Service February 22, 2020 Subjective Reason For Note: Routine Evaluation pt pushing for >4hr. exhausted. feeling more lower quad pain Assessment & Plan (1) Prolonged , antepartum: pt pushing for 4hr, is exhausted. offered vacuum assistance vs. primary c/s. risks benefits alt reviewed. she could also just cont to push. she opts for c/s. OR, anesth notified. Peds aware. Will sign consent and ready pt for OR. Physical Exam Constitutional: WD/WN, vitals as above Genitourinary: Manual OB Exam: + cervical dilation 10 cm, + cervical effacement 100% and + station (with molding) + 2 OB Exam Monitor Tracing: + scalp electrode used (170 mod variability, small accel with scalp stim), + external uterine monitor used (q3), + category II and + normal FHT variability Results & Data Vital Signs (Past 12 Hours) Vital Signs Temp Pulse Resp BP Pulse Ox 02/22/20 16:59 78 97 02/22/20 16:56 97 H 92 02/22/20 16:54 74 98 02/22/20 16:53 80 119/75 02/22/20 16:49 85 99 02/22/20 16:44 92 H 80 L 02/22/20 16:39 79 98 02/22/20 16:38 100 H 90 02/22/20 16:34 85 99 02/22/20 16:30 99 H 90 02/22/20 16:29 84 96 02/22/20 16:24 80 117/72 98 02/22/20 16:20 82 90 02/22/20 16:18 83 98 02/22/20 16:14 84 91 02/22/20 16:13 76 96 02/22/20 16:08 90 82 L 02/22/20 16:03 83 100 02/22/20 16:01 99 H 94 02/22/20 15:58 80 98 02/22/20 15:55 97 H 131/63 02/22/20 15:53 80 99 02/22/20 15:51 89 93 02/22/20 15:48 103 H 82 L 02/22/20 15:45 88 107/65 02/22/20 15:44 88 86 L 02/22/20 15:43 88 97 02/22/20 15:38 96 H 99 02/22/20 15:37 86 87 L 02/22/20 15:33 91 H 99 02/22/20 15:30 81 86 L 02/22/20 15:28 95 H 100 02/22/20 15:24 65 107/59 L 02/22/20 15:23 68 98 02/22/20 15:20 84 93 02/22/20 15:18 71 113/57 L 97 02/22/20 15:16 80 117/56 L 02/22/20 15:15 98.1 F 18 02/22/20 15:13 95 H 99 02/22/20 15:10 90 89 L 02/22/20 15:08 86 98 02/22/20 15:03 77 97 02/22/20 15:00 102 H 90 02/22/20 14:59 73 124/71 02/22/20 14:58 84 97 02/22/20 14:55 89 88 L 02/22/20 14:53 90 114/68 95 02/22/20 14:48 98 H 99 02/22/20 14:43 98 H 99 02/22/20 14:38 112 H 99 02/22/20 14:33 110 H 96 02/22/20 14:28 111 H 100 02/22/20 14:25 114 H 22 123/96 02/22/20 14:23 102 H 100 02/22/20 14:18 110 H 100 02/22/20 14:13 77 100 02/22/20 14:08 79 100 02/22/20 14:03 83 100 02/22/20 13:58 74 100 02/22/20 13:54 74 20 106/63 02/22/20 13:53 75 99 02/22/20 13:51 114 H 94 02/22/20 13:48 94 H 98 02/22/20 13:43 99 H 98 02/22/20 13:38 103 H 98 02/22/20 13:37 101 H 92 02/22/20 13:33 99 H 98 02/22/20 13:28 108 H 100 02/22/20 13:23 93 H 114/59 L 99 02/22/20 13:21 87 92 02/22/20 13:18 88 100 02/22/20 13:13 97 H 92 02/22/20 13:08 86 100 02/22/20 13:07 99 H 83 L 02/22/20 13:03 118 H 99 02/22/20 13:00 98.1 F 20 02/22/20 12:59 94 H 92 02/22/20 12:58 84 97 02/22/20 12:53 81 115/67 99 02/22/20 12:51 83 83 L 02/22/20 12:48 98 H 100 02/22/20 12:44 90 85 L 02/22/20 12:43 87 99 02/22/20 12:39 83 90 02/22/20 12:38 89 100 02/22/20 12:33 86 99 02/22/20 12:32 71 91 02/22/20 12:28 67 100 02/22/20 12:24 83 132/78 92 02/22/20 12:23 74 95 02/22/20 12:18 73 100 02/22/20 12:13 75 99 02/22/20 12:08 71 97 02/22/20 12:03 76 98 02/22/20 11:58 72 98 02/22/20 11:54 76 135/64 02/22/20 11:53 80 97 02/22/20 11:48 66 98 02/22/20 11:43 71 98 02/22/20 11:38 66 100 02/22/20 11:33 68 99 02/22/20 11:28 74 99 02/22/20 11:24 73 126/84 02/22/20 11:23 68 99 02/22/20 11:18 66 99 02/22/20 11:13 67 98 02/22/20 11:08 98.6 F 76 18 99 02/22/20 11:03 77 98 02/22/20 10:58 67 97 02/22/20 10:53 71 122/68 98 02/22/20 10:48 67 97 02/22/20 10:43 70 97 02/22/20 10:38 66 96 02/22/20 10:33 65 96 02/22/20 10:28 69 97 02/22/20 10:23 62 18 115/67 97 02/22/20 10:18 66 97 02/22/20 10:13 64 97 02/22/20 10:08 68 97 02/22/20 10:03 64 98 02/22/20 09:58 65 98 02/22/20 09:54 67 112/67 02/22/20 09:53 64 97 02/22/20 09:48 88 98 02/22/20 09:43 59 L 97 02/22/20 09:38 64 96 02/22/20 09:33 66 96 02/22/20 09:28 70 96 02/22/20 09:24 68 122/77 02/22/20 09:23 70 96 02/22/20 09:18 71 97 02/22/20 09:15 98.1 F 16 02/22/20 09:13 74 97 02/22/20 09:08 74 96 02/22/20 09:03 72 96 02/22/20 08:58 69 96 02/22/20 08:55 73 113/71 02/22/20 08:53 77 97 02/22/20 08:48 81 97 02/22/20 08:43 82 96 02/22/20 08:38 74 96 02/22/20 08:33 72 96 02/22/20 08:28 74 96 02/22/20 08:23 84 18 120/68 96 02/22/20 08:18 80 96 02/22/20 08:13 76 97 02/22/20 08:08 73 97 02/22/20 08:03 77 96 02/22/20 07:58 75 97 02/22/20 07:54 73 18 120/73 02/22/20 07:53 74 96 02/22/20 07:48 65 97 02/22/20 07:43 65 98 02/22/20 07:38 70 97 02/22/20 07:33 75 97 02/22/20 07:28 79 97 02/22/20 07:23 70 116/74 96 02/22/20 07:18 71 97 02/22/20 07:13 84 97 02/22/20 07:08 73 97 02/22/20 07:07 98.2 F 70 18 114/77 02/22/20 07:03 74 96 02/22/20 06:58 63 96 02/22/20 06:53 61 112/69 98 02/22/20 06:48 63 96 02/22/20 06:43 61 96 02/22/20 06:38 62 96 02/22/20 06:37 63 116/75 02/22/20 06:33 63 97 02/22/20 06:28 67 98 02/22/20 06:23 69 113/74 98 02/22/20 06:18 69 98 02/22/20 06:13 75 98 02/22/20 06:09 74 111/71 02/22/20 06:08 91 H 98 02/22/20 06:03 65 97 02/22/20 05:58 66 97 02/22/20 05:53 63 97 02/22/20 05:52 63 111/71 02/22/20 05:48 67 98 02/22/20 05:43 91 H 98 02/22/20 05:38 65 98 02/22/20 05:37 63 111/77 02/22/20 05:33 98.4 F 63 18 98 02/22/20 05:28 66 97 02/22/20 05:23 63 97 02/22/20 05:22 66 120/76 02/22/20 05:18 64 97 02/22/20 05:13 62 97 02/22/20 05:09 16 02/22/20 05:08 67 98 02/22/20 05:07 75 115/74 Coding Level of Care Code None Diagnoses Prolonged , antepartum O48.1
[2020-02-22] MEDS ORDERED: OXYTOCIN 10 UNITS/ML VIAL ONE ×2 (17:12→18:40)
[2020-02-22] MEDS ORDERED: LIDOCAINE/EPINEPHRINE 2% 1:200,000 20 ML SDV ONE (17:12)
[2020-02-22] MEDS ORDERED: PHENYLEPHRINE 100MCG/ML 5ML SYR ONE (17:12)
[2020-02-22] MEDS ORDERED: ONDANSETRON INJ 2 MG/ML 2 ML VIAL ONE (17:12)
[2020-02-22] MEDS ORDERED: METHYLERGONOVINE MALEATE 0.2 MG/ML AMP ONE (17:25)
[2020-02-22] MEDS ORDERED: CARBOPROST TROMETHAMINE 250 MCG/ML AMPUL ONE (17:25)
[2020-02-22] MEDS ORDERED: CEFAZOLIN 2000MG 2,000 MG/15 ML SYR IV SCH (17:30)
[2020-02-22] MEDS ORDERED: CITRIC ACID/SODIUM CITRATE 15 ML UDC PO SCH (17:30)
[2020-02-22] MEDS ORDERED: MoRPHine SULFATE PF 1 MG/ML 10 ML AMP/VIAL ONE (17:40)
[2020-02-22] MEDS ORDERED: NALBUPHINE HCL INJ 10 MG/ML AMP IV PRN (17:46)
[2020-02-22] MEDS ORDERED: DiphenhydrAMINE HCL 50 MG/ML VIAL IV PRN (17:46)
[2020-02-22] MEDS ORDERED: ONDANSETRON INJ 2 MG/ML 2 ML VIAL IV PRN (17:46)
[2020-02-22] MEDS ORDERED: MoRPHine SULFATE PF 1 MG/ML 10 ML AMP/VIAL INT SPINAL ONE (17:46)
[2020-02-22] MEDS ORDERED: NALOXONE HCL 0.08 MG in SYRINGE 1.8 ML IV PRN (17:46)
[2020-02-22] MEDS ORDERED: fentaNYL citrate 100 MCG/2 ML VIAL ONE ×2 (17:46→18:05)
[2020-02-22] MEDS ORDERED: NALOXONE HCL 1 MG in SODIUM CHLORIDE 0.9% 1000ML 1,000 ML IV PRN (17:46)
[2020-02-22] MEDS ORDERED: MEPERIDINE HCL 25 MG/ML CARP/VIAL IV PRN (17:46)
[2020-02-22] MEDS ORDERED: NALOXONE HCL 0.4 MG/1 ML VIAL/CARP IV PRN (17:46)
[2020-02-22] MEDS ORDERED: ePHEDrine sulfate 50 MG/ML AMP IV PRN (17:46)
[2020-02-22] MEDS ORDERED: LACTATED RINGER'S 500 ML IV PRN (17:46)
[2020-02-22] MEDS ORDERED: NO NARCOTICS OR SEDATIVES SCH (18:00)
[2020-02-22] MEDS ORDERED: SODIUM CHLORIDE 0.9% 1000ML 1,000 ML IV SCH (18:00)
[2020-02-22] MEDS ORDERED: ARISTA ABSORBABLE HEMOSTAT 3GM TOP ONE (18:13)
[2020-02-22] MEDS ORDERED: CARBOPROST TROMETHAMINE 250 MCG/ML AMPUL IM ONE (18:14)
--- NOTE | 2020-02-22 18:27 | Post Operative Brief Note ---
PG Immediate Post Op with CF Date of Surgery February 22, 2020 Pre & Post Diagnosis Operation Date: 02/22/20 17:15 Postdates, induction of labor, failure to descend I identified the patient and participated in the time-out.: Yes Procedure Operation Date: 02/22/20 17:15 Actual Procedures Primary Low Transverse Section Surgeon Marce Sinclair MD, FACOG Computer Systems Engineer Vida Estimated Blood Loss 600 Findings Consistent with Post-Op Diagnosis (viable female infant, apgars 8,9. normal uterus tubes and ovaries bilaterally) Fluids 1500 Specimens Specimen Description: placenta, cord gases, cord blood Drains Palencia Catheter Anesthesia Type Labor Epidural Complications none Disposition Accompanied Patient To Recovery: No Disposition: Recovery Room
[2020-02-22 18:31] LABS: CO2 Cord Arterial Blood 49 mmHg (39.1-73.5); HCO3 Cord Arterial Blood 23 mmol/L (19.7-28.5); PO2 Cord Arterial Blood 12 mmHg (4.1-31.7); pH Cord Arterial Blood 7.29 (7.1-7.38)
[2020-02-22 18:36] LABS: Base Excess Cord Venous Blood -4.3 mEq/L (-7.7-1.9); Cord Venous Blood HCO3 21 mmol/L (18.4-26.8); Cord Venous Blood PCO2 38 mmHg (30.4-57.2); Cord Venous Blood PO2 28 mmHg (14.1-43.3); Cord Venous Blood pH 7.36 (7.20-7.44)
[2020-02-22 18:37] LABS: Oxygen Sat Cord Arterial Blood < 60.0 % (<60)
--- NOTE | 2020-02-22 18:45 | Operative Report ---
PG Post Operative Report Pre & Post Diagnosis Operation Date: 02/22/20 17:15 Pre-Op Diagnosis: Postdates induction, Meconium stained fluid, Failure to descend, tachycardia Post-Op Diagnosis: same I identified the patient and participated in the time-out.: Yes Procedure Operation Date: 02/22/20 17:15 Actual Procedures Primary Low Transverse Section Surgeon Marce Sinclair MD, FACOG Dedicated Owner Operator Vida Estimated Blood Loss 600 Findings Consistent with Post-Op Diagnosis (viable female , apgars 8,9. normal uterus tubes and ovaries bilaterally.) Fluids 1500 Specimens placenta, cord blood, cord gases Drains sevilla Anesthesia Type Labor Epidural Complications none Disposition Accompanied Patient To Recovery: No Disposition: Recovery Room Indications 24yo at 41wks who presented for induction of labor on 02/21/20. This morning I assumed care and she continued on pitocin and had her pain managed with an epidural. She ultimately dilated to complete and began pushing. After about 4hrs of pushing pt was exhausted. Exam was C/C/+2 with molding. Offered vacuum assistance vs. primary section vs. continued pushing. She opted for section. There had been no descent over at least 1 hour. The fetus was tachycardic and meconium had been noted. Consent obtained and patient readied for operating room. Due to an ongoing section on the labor floor, she was taken to the Main OR for planned procedure which was considered emergent. Description of Procedure The patient was taken to the operating room and identified. She was placed in the supine position with a leftward tilt on the operating table and prepped and draped in the usual sterile fashion. A sevilla catheter had already been placed. The knife was used to create a Pfannensteil skin incision that was carried down to the underlying layer of fascia. The fascia was nicked in the midline and this opening was extended laterally bluntly. The superior and inferior aspects of the fascial incision were tented upward and the underlying rectus muscles were dissected off the overlying fascia both sharply and bluntly using Amaro scissors. The rectus muscles were bluntly in the midline. The peritoneal cavity was bluntly entered into. This opening was stretched. The bladder blade was placed. The vesicouterine peritoneum was elevated and opened up into and the bladder flap was created digitally and bladder blade was replaced. The knife was used to create a hysterotomy and this opening was stretched. The operators hand was placed through the hysterotomy and the bladder blade was removed. The head was elevated from deep in the pelvis and flexed and with fundal pressure the head was delivered. The shoulders and body were rapidly delivered. The cord was clamped and cut and the 's mouth and nares were bulb suction. The was handed off to the awaiting pediatricians. Cord blood and cord gases were obtained. The placenta was manually expressed. The uterus was exteriorized and cleared of all clots and debris. Dilute IV Pitocin was begun. The uterine tone was improving. The hysterotomy was closed in a running interlocking fashion using 0 Vicryl followed by a second imbricating layer of 0 Vicryl. An extension of the hysterotomy toward the cervix was repaired in 2 layers with 0 vicryl for excellent hemostasis. The hysterotomy was hemostatic. The pelvis was irrigated. The uterus was returned to the abdomen. The gutters were cleared of all clots and debris. The hysterotomy was reinspected and noted to be hemostatic. Renny was placed overlying the hysterotomy. The fascia was then closed in running fashion using 0 Vicryl. The subcutaneous fat was copiously irrigated and reapproximated using 2-0 chromic. The skin was closed in a subcuticular fashion using 4-0 Vicryl. At this point the procedure was terminated. The patient was transferred to the recovery room in stable condition. All sponge, lap and needle counts are correct x2. The perineum was examined at end of procedure and no obvious lacerations needing repair were noted. I attest to the content of the Intraoperative Record and any orders documented therein. Any exceptions are noted below.
[2020-02-22] MEDS ORDERED: CEFAZOLIN 2000MG 2,000 MG/15 ML SYR IV ONE (19:00)
--- NOTE | 2020-02-22 19:00 | Anesthesia Procedure Note ---
Date of Service February 22, 2020 Anesthesia Post Epidural Note Vital Signs Vital Signs: Temp Pulse Resp BP Pulse Ox 97.9 F 85 14 128/90 100 02/22/20 18:36 02/22/20 18:55 02/22/20 18:55 02/22/20 18:55 02/22/20 18:55 Pain Intensity Bilateral Lower Back: Pain Intensity: 8 Bilateral Abdomen: Pain Intensity: 5 Abdomen: Pain Intensity: 5 Notes Mental Status: alert / awake / arousable and participated in evaluation Nausea / Vomiting: adequately controlled Pain: adequately controlled Airway Patency, RR, SpO2: stable & adequate BP & HR: stable & adequate Hydration State: stable & adequate Neuraxial Anesthesia: was administered and sensory block is resolving Anesthetic Complications: no major complications apparent and Pt Satisfied with anesthetic care Epidural: Removed without complications and With tip intact
--- NOTE | 2020-02-22 19:04 | Anesthesiology Progress Note ---
Date of Service February 22, 2020 Anesthesia Post Procedure Vital Signs Vital Signs: Temp Pulse Pulse Resp BP BP Pulse Ox 02/22/20 18:55 85 14 128/90 100 02/22/20 18:45 76 18 123/75 100 02/22/20 18:36 97.9 F 82 16 118/79 100 02/22/20 17:19 85 113/79 100 02/22/20 17:14 81 98 02/22/20 17:09 73 100 02/22/20 17:04 72 96 02/22/20 16:59 78 97 02/22/20 16:56 97 H 92 02/22/20 16:54 74 98 02/22/20 16:53 80 119/75 02/22/20 16:49 85 99 02/22/20 16:44 92 H 80 L 02/22/20 16:39 79 98 02/22/20 16:38 100 H 90 02/22/20 16:34 85 99 02/22/20 16:30 99 H 90 02/22/20 16:29 84 96 02/22/20 16:24 80 117/72 98 02/22/20 16:20 82 90 02/22/20 16:18 83 98 02/22/20 16:14 84 91 02/22/20 16:13 76 96 02/22/20 16:08 90 82 L 02/22/20 16:03 83 100 02/22/20 16:01 99 H 94 02/22/20 15:58 80 98 02/22/20 15:55 97 H 131/63 02/22/20 15:53 80 99 02/22/20 15:51 89 93 02/22/20 15:48 103 H 82 L 02/22/20 15:45 88 107/65 02/22/20 15:44 88 86 L 02/22/20 15:43 88 97 02/22/20 15:38 96 H 99 02/22/20 15:37 86 87 L 02/22/20 15:33 91 H 99 02/22/20 15:30 81 86 L 02/22/20 15:28 95 H 100 02/22/20 15:24 65 107/59 L 02/22/20 15:23 68 98 02/22/20 15:20 84 93 02/22/20 15:18 71 113/57 L 97 02/22/20 15:16 80 117/56 L 02/22/20 15:15 98.1 F 18 02/22/20 15:13 95 H 99 02/22/20 15:10 90 89 L 02/22/20 15:08 86 98 02/22/20 15:03 77 97 02/22/20 15:00 102 H 90 02/22/20 14:59 73 124/71 02/22/20 14:58 84 97 02/22/20 14:55 89 88 L 02/22/20 14:53 90 114/68 95 02/22/20 14:48 98 H 99 02/22/20 14:43 98 H 99 02/22/20 14:38 112 H 99 02/22/20 14:33 110 H 96 02/22/20 14:28 111 H 100 02/22/20 14:25 114 H 22 123/96 02/22/20 14:23 102 H 100 02/22/20 14:18 110 H 100 02/22/20 14:13 77 100 02/22/20 14:08 79 100 02/22/20 14:03 83 100 02/22/20 13:58 74 100 02/22/20 13:54 74 20 106/63 02/22/20 13:53 75 99 02/22/20 13:51 114 H 94 02/22/20 13:48 94 H 98 02/22/20 13:43 99 H 98 02/22/20 13:38 103 H 98 02/22/20 13:37 101 H 92 02/22/20 13:33 99 H 98 02/22/20 13:28 108 H 100 02/22/20 13:23 93 H 114/59 L 99 02/22/20 13:21 87 92 02/22/20 13:18 88 100 02/22/20 13:13 97 H 92 02/22/20 13:08 86 100 02/22/20 13:07 99 H 83 L 02/22/20 13:03 118 H 99 02/22/20 13:00 98.1 F 20 02/22/20 12:59 94 H 92 02/22/20 12:58 84 97 02/22/20 12:53 81 115/67 99 02/22/20 12:51 83 83 L 02/22/20 12:48 98 H 100 02/22/20 12:44 90 85 L 02/22/20 12:43 87 99 02/22/20 12:39 83 90 02/22/20 12:38 89 100 02/22/20 12:33 86 99 02/22/20 12:32 71 91 02/22/20 12:28 67 100 02/22/20 12:24 83 132/78 92 02/22/20 12:23 74 95 02/22/20 12:18 73 100 02/22/20 12:13 75 99 02/22/20 12:08 71 97 02/22/20 12:03 76 98 02/22/20 11:58 72 98 02/22/20 11:54 76 135/64 02/22/20 11:53 80 97 02/22/20 11:48 66 98 02/22/20 11:43 71 98 02/22/20 11:38 66 100 02/22/20 11:33 68 99 02/22/20 11:28 74 99 02/22/20 11:24 73 126/84 02/22/20 11:23 68 99 02/22/20 11:18 66 99 02/22/20 11:13 67 98 02/22/20 11:08 98.6 F 76 18 99 02/22/20 11:03 77 98 02/22/20 10:58 67 97 02/22/20 10:53 71 122/68 98 02/22/20 10:48 67 97 02/22/20 10:43 70 97 02/22/20 10:38 66 96 02/22/20 10:33 65 96 02/22/20 10:28 69 97 02/22/20 10:23 62 18 115/67 97 02/22/20 10:18 66 97 02/22/20 10:13 64 97 02/22/20 10:08 68 97 02/22/20 10:03 64 98 02/22/20 09:58 65 98 02/22/20 09:54 67 112/67 02/22/20 09:53 64 97 02/22/20 09:48 88 98 02/22/20 09:43 59 L 97 02/22/20 09:38 64 96 02/22/20 09:33 66 96 02/22/20 09:28 70 96 02/22/20 09:24 68 122/77 02/22/20 09:23 70 96 02/22/20 09:18 71 97 02/22/20 09:15 98.1 F 16 02/22/20 09:13 74 97 02/22/20 09:08 74 96 02/22/20 09:03 72 96 02/22/20 08:58 69 96 02/22/20 08:55 73 113/71 02/22/20 08:53 77 97 02/22/20 08:48 81 97 02/22/20 08:43 82 96 02/22/20 08:38 74 96 02/22/20 08:33 72 96 02/22/20 08:28 74 96 02/22/20 08:23 84 18 120/68 96 02/22/20 08:18 80 96 02/22/20 08:13 76 97 02/22/20 08:08 73 97 02/22/20 08:03 77 96 02/22/20 07:58 75 97 02/22/20 07:54 73 18 120/73 02/22/20 07:53 74 96 02/22/20 07:48 65 97 02/22/20 07:43 65 98 02/22/20 07:38 70 97 02/22/20 07:33 75 97 02/22/20 07:28 79 97 02/22/20 07:23 70 116/74 96 02/22/20 07:18 71 97 02/22/20 07:13 84 97 02/22/20 07:08 73 97 02/22/20 07:07 98.2 F 70 18 114/77 02/22/20 07:03 74 96 02/22/20 06:58 63 96 02/22/20 06:53 61 112/69 98 02/22/20 06:48 63 96 02/22/20 06:43 61 96 02/22/20 06:38 62 96 02/22/20 06:37 63 116/75 02/22/20 06:33 63 97 02/22/20 06:28 67 98 02/22/20 06:23 69 113/74 98 02/22/20 06:18 69 98 02/22/20 06:13 75 98 02/22/20 06:09 74 111/71 04/29/20 06:08 91 H 98 02/22/20 06:03 65 97 02/22/20 05:58 66 97 02/22/20 05:53 63 97 02/22/20 05:52 63 111/71 02/22/20 05:48 67 98 02/22/20 05:43 91 H 98 02/22/20 05:38 65 98 02/22/20 05:37 63 111/77 02/22/20 05:33 98.4 F 63 18 98 02/22/20 05:28 66 97 02/22/20 05:23 63 97 02/22/20 05:22 66 120/76 02/22/20 05:18 64 97 02/22/20 05:13 62 97 02/22/20 05:09 16 02/22/20 05:08 67 98 02/22/20 05:07 75 115/74 02/22/20 05:03 69 98 02/22/20 04:58 69 99 02/22/20 04:53 62 99 02/22/20 04:52 70 119/75 02/22/20 04:48 68 99 02/22/20 04:43 65 99 02/22/20 04:38 65 111/72 99 02/22/20 04:33 69 99 02/22/20 04:28 66 99 02/22/20 04:23 64 110/71 100 02/22/20 04:18 62 99 02/22/20 04:13 63 99 02/22/20 04:08 71 16 99 02/22/20 04:07 69 109/72 02/22/20 04:03 67 99 02/22/20 03:58 63 100 02/22/20 03:53 68 109/68 99 02/22/20 03:48 72 100 02/22/20 03:45 98.1 F 16 02/22/20 03:43 69 100 02/22/20 03:38 64 111/72 100 02/22/20 03:33 72 100 02/22/20 03:28 77 100 02/22/20 03:24 96 H 108/73 02/22/20 03:23 104 H 97 02/22/20 03:22 86 92 02/22/20 03:18 71 98 02/22/20 03:13 63 98 02/22/20 03:08 71 98 02/22/20 03:07 71 124/80 02/22/20 03:03 66 97 02/22/20 02:58 62 98 02/22/20 02:53 70 124/81 98 02/22/20 02:48 66 97 02/22/20 02:43 69 98 02/22/20 02:38 64 98 02/22/20 02:37 66 116/77 02/22/20 02:33 66 98 02/22/20 02:28 61 99 02/22/20 02:23 68 99 02/22/20 02:22 67 122/79 02/22/20 02:18 70 99 02/22/20 02:13 98.1 F 92 H 18 98 02/22/20 02:08 75 98 02/22/20 02:07 74 106/66 02/22/20 02:03 72 97 02/22/20 01:58 64 98 02/22/20 01:53 72 103/70 98 02/22/20 01:48 71 99 02/22/20 01:43 74 98 02/22/20 01:38 69 98 02/22/20 01:37 70 100/66 02/22/20 01:33 68 99 02/22/20 01:29 18 02/22/20 01:28 66 98 02/22/20 01:23 68 99 02/22/20 01:22 70 104/62 02/22/20 01:18 68 98 02/22/20 01:13 68 99 02/22/20 01:08 70 98 02/22/20 01:07 68 100/70 02/22/20 01:03 71 98 02/22/20 00:58 64 99 02/22/20 00:53 66 99 02/22/20 00:52 74 100/69 02/22/20 00:48 71 99 02/22/20 00:43 80 99 02/22/20 00:38 71 100 02/22/20 00:37 98.1 F 74 18 100/70 02/22/20 00:33 71 99 02/22/20 00:28 71 100 02/22/20 00:23 75 100 02/22/20 00:22 81 102/67 02/22/20 00:18 77 100 02/22/20 00:16 90 92 02/22/20 00:13 74 100 02/22/20 00:08 75 100 02/22/20 00:07 76 116/74 02/22/20 00:03 108 H 100 02/21/20 23:58 87 100 02/21/20 23:53 71 109/62 100 02/21/20 23:48 67 100 02/21/20 23:43 65 100 02/21/20 23:38 73 109/74 99 02/21/20 23:33 77 100 02/21/20 23:28 102 H 100 02/21/20 23:23 91 H 97 02/21/20 23:22 80 107/72 02/21/20 23:21 80 91 02/21/20 23:18 68 100 02/21/20 23:13 67 98 02/21/20 23:08 71 98 02/21/20 23:07 70 113/67 02/21/20 23:03 68 98 02/21/20 22:58 65 98 02/21/20 22:53 69 99 02/21/20 22:52 69 108/62 02/21/20 22:48 64 98 02/21/20 22:43 79 98 02/21/20 22:40 98.6 F 16 02/21/20 22:38 73 98 02/21/20 22:37 84 116/66 02/21/20 22:33 70 97 02/21/20 22:28 69 97 02/21/20 22:24 80 116/63 02/21/20 22:23 78 97 02/21/20 22:18 69 97 02/21/20 22:13 72 97 02/21/20 22:08 73 111/63 98 02/21/20 22:05 16 02/21/20 22:03 70 98 02/21/20 21:58 74 98 02/21/20 21:53 73 98 02/21/20 21:52 74 116/65 02/21/20 21:47 75 98 02/21/20 21:42 72 98 02/21/20 21:37 70 116/65 98 02/21/20 21:32 66 99 02/21/20 21:27 72 99 02/21/20 21:22 77 124/76 98 02/21/20 21:17 75 98 02/21/20 21:16 73 101/63 02/21/20 21:12 76 98 02/21/20 21:11 69 100/64 02/21/20 21:07 82 98 02/21/20 21:06 75 100/66 02/21/20 21:02 79 99 02/21/20 21:00 69 104/72 02/21/20 20:57 68 98 02/21/20 20:56 71 110/67 02/21/20 20:54 71 18 105/65 02/21/20 20:52 78 110/66 99 02/21/20 20:50 72 114/70 02/21/20 20:47 69 99 02/21/20 20:46 98.1 F 18 02/21/20 20:44 68 114/72 02/21/20 20:42 90 118/68 99 02/21/20 20:40 73 18 113/76 02/21/20 20:38 67 110/70 02/21/20 20:37 82 100 02/21/20 20:34 86 114/83 02/21/20 20:32 80 100 02/21/20 20:27 87 99 02/21/20 20:22 86 99 02/21/20 20:17 85 98 02/21/20 20:12 80 98 02/21/20 20:08 80 118/61 02/21/20 20:07 80 99 02/21/20 20:02 75 98 02/21/20 19:57 75 98 02/21/20 19:52 76 97 02/21/20 19:13 98.1 F 16 02/21/20 19:04 81 114/77 Pain Intensity Bilateral Lower Back: Pain Intensity: 8 Bilateral Abdomen: Pain Intensity: 5 Abdomen: Pain Intensity: 5 Transfer of Care Handoff Completed per policy Notes Mental Status: alert / awake / arousable and participated in evaluation Nausea / Vomiting: adequately controlled Pain: adequately controlled Airway Patency, RR, SpO2: stable & adequate BP & HR: stable & adequate Hydration State: stable & adequate Neuraxial Anesthesia: was administered and sensory block is resolving Anesthetic Complications: no major complications apparent and Pt Satisfied with anesthetic care
[2020-02-22] MEDS ORDERED: BENZOCAINE 20% AER SPR 82.5 GM CAN EXT PRN (19:27)
[2020-02-22] MEDS ORDERED: HYDROCORTISONE ACETATE 25 MG SUPP PR PRN (19:27)
[2020-02-22] MEDS ORDERED: SUPERCREAM 0.870% 15 GM JAR EXT PRN (19:27)
[2020-02-22] MEDS ORDERED: LACTATED RINGER'S 1,000 ML IV SCH (19:30)
[2020-02-22] MEDS ORDERED: OXYTOCIN 20 UNITS in LACTATED RINGER'S 1,000 ML IV SCH (19:30)
[2020-02-22] MEDS ORDERED: DIPHTHERIA/TETANUS/PERTUSSIS 0.5 ML SYR/VIAL IM ONE (19:45)
[2020-02-22] MEDS: SIMETHICONE 80 MG CHEW PO SCH (20:30)
[2020-02-22] MEDS: DOCUSATE SODIUM 100 MG CAP PO SCH (20:30)
[2020-02-23] MEDS: KETOROLAC 30 MG/ML VIAL IV PRN ×2 (02:25→08:59)
[2020-02-23 06:54] LABS: Eosinophils # (auto) 0.01 K/uL (0-0.5); Eosinophils % (auto) 0.1 %; Hematocrit (blood only) 25.5 % (37-47); Hemoglobin 8.8 g/dL (12.0-16.0); Immature Granulocytes # (auto) 0.03 K/uL (0.00-0.02); Immature Granulocytes % (auto) 0.3 %; Lymphocytes # (auto) 1.22 K/uL (1.2-3.4); Lymphocytes % (auto) 10.6 %; Mean Corpuscular Hgb Conc 34.5 g/dL (32-36); Mean Corpuscular Volume 89.8 fL (80-100); Mean Platelet Volume 8.9 fL (7.4-10.4); Monocytes # (auto) 0.95 K/uL (0.11-0.59); Monocytes % (auto) 8.3 %; Neutrophils # (auto) 9.28 K/uL (1.4-6.5); Neutrophils % (auto) 80.7 %; Platelet Count 172 K/uL (130-400); RDW Coefficient of Variation 13.3 % (11.5-14.5); RDW Standard Deviation 43.7 fL (36.4-46.3); Red Blood Count 2.84 M/uL (4.2-5.4); White Blood Count 11.49 K/uL (4.8-10.8)
--- NOTE | 2020-02-23 07:52 | Obstetrical Progress Note ---
Date of Service February 23, 2020 Assessment & Plan (1) Prolonged , antepartum: (2) Encounter for induction of labor: (3) H/O section: doing well postop. stable. hgb noted. plan routine postop care. remove dressing later today or in am. RH pos/RI. circumstances of delivery reviewed with couple. no questions. Day #:: 1 Subjective Voiding: sevilla catheter in place Passing Gas:: Yes Diet Tolerance:: clear liquids Lochia:: Small Feeding Type:: breast feeding denies pain issues. used toradol iv x 2. no cp or sob, no n/v. breast feeding. Physical Exam Constitutional WD/WN, vitals as above Respiratory normal respiratory effort, lungs clear to auscultation Cardiovascular Rate/Rhythm: regular rate and regular rhythm Gastrointestinal (Abdomen) Inspection/Auscultation: abdomen normal to inspection and + abdominal surgical incision (dressing c/d/i) Percussion/Palpation: abdomen soft; abdomen nontender Fundus firm 1 down, nt Musculoskeletal nt calves no edema Neurologic grossly normal Psychiatric A+Ox3, euthymic affect Results & Data Vital Signs (Past 12 Hours) Vital Signs Temp Pulse Resp BP Pulse Ox 02/23/20 06:29 18 99 02/23/20 05:30 18 98 02/23/20 04:43 18 99 02/23/20 03:30 18 98 02/23/20 03:00 98.1 F 108 H 18 106/66 99 02/23/20 02:30 18 99 02/23/20 01:30 18 100 02/23/20 00:25 18 99 02/22/20 23:20 98.2 F 99 H 18 112/72 99 02/22/20 22:35 16 96 02/22/20 21:50 99 H 16 116/74 95 02/22/20 20:30 88 16 114/76 94 02/22/20 19:50 98.4 F 81 18 119/79 94
[2020-02-23] MEDS: SIMETHICONE 80 MG CHEW PO SCH ×4 (08:59→21:00)
[2020-02-23] MEDS: DOCUSATE SODIUM 100 MG CAP PO SCH ×2 (08:59→21:32)
[2020-02-23] MEDS ORDERED: DC INTRASPINAL MORPHINE SCH (11:46)
[2020-02-23] MEDS ORDERED: KETOROLAC 30 MG/ML VIAL IV PRN (11:47)
[2020-02-23] MEDS ORDERED: ONDANSETRON INJ 2 MG/ML 2 ML VIAL IV PRN (11:47)
[2020-02-23] MEDS ORDERED: DiphenhydrAMINE HCL 50 MG/ML VIAL IV PRN (11:47)
[2020-02-23] MEDS: OXYCODONE/ACETAMINOPHEN 5mg/325mg TAB PO PRN ×3 (12:24→21:31)
[2020-02-23] MEDS: IBUPROFEN 600 MG TAB PO PRN ×2 (16:51→21:32)
[2020-02-23] MEDS: IBUPROFEN 200 MG/10 ML UDC PO PRN (21:55)
[2020-02-24] MEDS: OXYCODONE/ACETAMINOPHEN 5mg/325mg TAB PO PRN ×4 (04:59→23:45)
[2020-02-24] MEDS: IBUPROFEN 200 MG/10 ML UDC PO PRN ×4 (05:00→23:45)
[2020-02-24 06:39] LABS: Hematocrit (blood only) 22.9 % (37-47)
--- NOTE | 2020-02-24 06:58 | Obstetrical Progress Note ---
Date of Service February 24, 2020 Assessment & Plan (1) delivery delivered: routine recovery going well so far POD#2, continue routine care and plan d/c tomorrow. Subjective Ambulation: ambulating normally Voiding: no voiding problems Passing Gas:: Yes Diet Tolerance:: regular diet Lochia:: Small Feeding Type:: breast feeding Physical Exam Constitutional WD/WN, vitals as above Eyes PERRL, conjunctivae normal, anicteric sclerae Neck normal visual inspection Respiratory normal respiratory effort and able to speak in complete sentences; no respiratory distress and no labored breathing Cardiovascular Rate/Rhythm: regular rate and regular rhythm Extremities: no edema Chest (Breasts) Chest: normal inspection of chest Gastrointestinal (Abdomen) Inspection/Auscultation: abdomen normal to inspection Soft, postgravid, dressing removed and incision is c/d/i Psychiatric A+Ox3, euthymic affect Genitourinary OB Exam Abdomen: + fundal height Fundus: + firm and + relation to umbilicus (fundus just below umbilicus); not tender Results & Data Vital Signs (Past 12 Hours) Vital Signs Temp Pulse Resp BP 02/23/20 23:30 97.9 F 96 H 18 105/67
[2020-02-24] MEDS: DOCUSATE SODIUM 100 MG CAP PO SCH ×2 (07:41→21:14)
[2020-02-24] MEDS: SIMETHICONE 80 MG CHEW PO SCH ×4 (07:41→21:13)
[2020-02-24] MEDS: FERROUS SULFATE 325 MG TAB PO SCH (12:22)
[2020-02-25] MEDS: IBUPROFEN 200 MG/10 ML UDC PO PRN ×2 (06:28→12:40)
[2020-02-25] MEDS: OXYCODONE/ACETAMINOPHEN 5mg/325mg TAB PO PRN ×2 (06:28→12:39)
--- NOTE | 2020-02-25 07:24 | Obstetrical Progress Note ---
Date of Service February 25, 2020 Assessment & Plan (1) delivery delivered: Postoperative from section patient meets discharge criteria as she is ambulating well tolerating an oral diet has minimal bleeding and no extremity pain. Discharge instructions were reviewed and prescriptions were sent to her pharmacy of choice patient advised to call with any concerns and follow-up in the office discussed Subjective Ambulation: ambulating normally Voiding: no voiding problems Passing Gas:: Yes Diet Tolerance:: regular diet Lochia:: Small Feeding Type:: breast feeding Physical Exam Constitutional WD/WN, vitals as above Respiratory normal respiratory effort, lungs clear to auscultation Cardiovascular RRR, no murmur, no edema Gastrointestinal (Abdomen) normal bowel sounds, soft, nontender, no hepatosplenomegaly (Incision healing well ) Results & Data Vital Signs (Past 12 Hours) Vital Signs Temp Pulse Resp BP 02/24/20 23:40 97.9 F 98 H 18 108/69 02/24/20 20:05 97.9 F 100 H 16 117/73
[2020-02-25] MEDS: SIMETHICONE 80 MG CHEW PO SCH ×2 (09:30→12:39)
[2020-02-25] MEDS: DOCUSATE SODIUM 100 MG CAP PO SCH (09:30)
[2020-02-25] MEDS: FERROUS SULFATE 325 MG TAB PO SCH (09:30)
--- NOTE | 2020-02-27 16:41 | Discharge Summary ---
Date of Service Day of admission: 02/21/20 Day of discharge: 02/25/20 Admission diagnoses: 41 week intrauterine Unfavorable cervix at term Induction of labor Discharge diagnoses: same Failure to descend Meconium stained fluid tachycardia Procedures: Cervical ripening Pitocin induction Primary [facility] Discharge Data Consultations 02/21/20 08:16 Consult Anesthesiology Stat Procedures Performed Operation Date: 02/22/20 17:15 Actual Procedures Primary Low Transverse Section Hospital Course (1) delivery delivered: Patient was admitted as noted above and began with cytotec cervical ripening. Ultimately became more favorable and pitocin begun and arom performed. Epidural was placed for pain management. On day of her delivery, did dilate to complete and pushed x 4hrs with failure to descend. After discussion of options, desired to proceed with primary section. Procedure performed without incident. EBL approx 650cc. Postoperative hemoglobin 8. Postoperative course uncomplicated. Patient stable for d/c home on POD #3 and given appropriate prescriptions and instructions. Planned followup 6 weeks. Patient to call to schedule that appointment. Coding Level of Care Code None Diagnoses delivery delivered O82
== END 2020-02-25 14:05 | disposition home or self-care (01) | DRG 788 ==
LOC: 4S1 07:33 → 4S2 02-22 18:30

== ENCOUNTER 2022-07-16 05:26 | Inpatient (IN) ==
--- NOTE | 2022-07-04 14:26 | Anesthesiology Consultation ---
Date of Service July 04, 2022 Assessment & Plan (1) Encounter for pre-operative examination: - anesthesia record: 02/22/20: L3-L4 1 attempt: Pt reports minimal benefit, felt could feel throughout and was traumatic experience due to this. - COVID screening: Per stamper blocker on 07/04/2022: Travel screen-multiple [facility] for work, no known COVID-19 positive contacts or current COVID-19 related symptoms in past 2 weeks. To surgeon's discretion if preop COVID testing needed. Chart Review Chart Review: customs entry clerk initiated History Surgery Operation Date: 07/16/22 07:30 Proposed Procedures p Repeat Section in LD - Frederick Loya MD Operation Date: 07/22/22 07:30 Proposed Procedures p Repeat Section in - Brennan Mejias MD Height/Weight Height: 5 ft 5 in Weight: 72.575 kg Allergies Allergy/AdvReac Type Severity Reaction Status Date / Time No Known Allergies Allergy Verified 07/04/22 13:51 Medications Home Medications Medication Instructions Recorded Confirmed Last Taken vit with calcium-iron 1 tab PO QAM 07/04/22 07/04/22 Unknown fum-folic acid 60 mg-0.8 mg tablet Past Medical History Medical History Anemia current iron level low - planning for upcoming iron infusions (not scheduled yet , should be next week) History of anesthesia reaction with previous c/s (emergency) had epidural during labor ; pt reports doesn't know if it was effective during labor for pain relief/could still feel pain and wasn't sure if anything was added to it for c/s , pt could feel c/s "very traumatic" Patient denies significant medical history Past Family History Family History Grandfather (Paternal) Cardiac disorder Myocardial infarction Uncle Coronary heart disease Hypercholesteremia Father Hypercholesteremia Hypertension Mother Hypertension Thyroid disease Multiple gestation Grandmother (Maternal) Malignant neoplasm of cervix Sister Gestational diabetes Past Surgical History Surgical History History of low transverse section Social History Smoking Status: Never smoker Do You Dip or Chew Tobacco: No Hx Alcohol Use: No Hx Substance Use: No substance use type: does not use Testing Laboratory Results 07/01/2022 WBC: 7 H/H: PLT: 187
[2022-07-16] MEDS ORDERED: CITRIC ACID/SODIUM CITRATE 15 ML UDC PO SCH (06:00)
[2022-07-16 06:10] LABS: Basophils # (auto) 0.04 K/uL (0-0.2); Basophils % (auto) 0.6 %; Eosinophils # (auto) 0.07 K/uL (0-0.50); Hematocrit (blood only) 36.4 % (34.1-44.9); Hemoglobin 12.4 g/dl (12.0-16.0); Immature Granulocytes # (auto) 0.09 K/uL (0.00-0.02); Immature Granulocytes % (auto) 1.3 %; Lymphocytes # (auto) 1.46 K/uL (1.2-3.4); Lymphocytes % (auto) 20.9 %; Mean Corpuscular Hemoglobin 29.2 pg (25.0-34.0); Mean Corpuscular Hgb Conc 34.1 g/dL (32.0-36.0); Mean Corpuscular Volume 85.8 fL (80.0-100.0); Mean Platelet Volume 8.7 fL (9.4-12.3); Monocytes # (auto) 0.63 K/uL (0.24-0.82); Neutrophils % (auto) 67.2 %; Platelet Count 161 K/uL (130-400); RDW Coefficient of Variation 18.6 % (11.5-14.5); RDW Standard Deviation 57.6 fL (36.4-46.3); Red Blood Count 4.24 M/uL (3.93-5.22); White Blood Count 6.99 K/ul (4.8-10.8)
[2022-07-16] MEDS: LACTATED RINGER'S 1,000 ML IV PRN ×2 (06:10→07:12)
[2022-07-16] MEDS ORDERED: ceFAZolin 2000MG 2,000 MG/15 ML SYR IV ONE (06:15)
--- NOTE | 2022-07-16 07:42 | History & Physical Bridge Note ---
Date of Service July 16, 2022 History & Physical Bridge Note I have examined the patient, reviewed the History & Physical and in the interval since the performance of the History & Physical I have noted the following changes of clinical significance: no changes noted
[2022-07-16] MEDS ORDERED: MoRPHine SULFATE PF 1 MG/ML 10 ML AMP/VIAL ONE (07:43)
[2022-07-16] MEDS ORDERED: NALBUPHINE HCL INJ 10 MG/ML AMP IV PRN (07:48)
[2022-07-16] MEDS ORDERED: MoRPHine SULFATE PF 1 MG/ML 10 ML AMP/VIAL INT SPINAL ONE (07:48)
[2022-07-16] MEDS ORDERED: NALOXONE HCL 0.4 MG/1 ML VIAL/CARP IV PRN (07:48)
[2022-07-16] MEDS ORDERED: diphenhydrAMINE 50 MG/ML VIAL IV PRN (07:48)
[2022-07-16] MEDS ORDERED: ePHEDrine sulfate 50 MG/ML AMP IV PRN (07:48)
[2022-07-16] MEDS ORDERED: METOCLOPRAMIDE HCL 20 MG in SODIUM CHLORIDE 0.9% 50 ML IV PRN (07:48)
[2022-07-16] MEDS ORDERED: ONDANSETRON INJ 2 MG/ML 2 ML VIAL IV PRN (07:48)
[2022-07-16] MEDS ORDERED: NALOXONE HCL 1 MG in SODIUM CHLORIDE 0.9% 1000ML 1,000 ML IV PRN (07:48)
[2022-07-16] MEDS ORDERED: HYDROmorphone INJ 0.5 MG/0.5 ML SYR IV PRN (07:48)
[2022-07-16] MEDS ORDERED: NALOXONE HCL 0.08 MG in SYRINGE 1.8 ML IV PRN (07:48)
[2022-07-16] MEDS ORDERED: PROMETHAZINE HCL 25 MG in SODIUM CHLORIDE 0.9% 50 ML IV PRN (07:48)
[2022-07-16] MEDS ORDERED: LACTATED RINGER'S 500 ML IV PRN (07:48)
[2022-07-16] MEDS ORDERED: NO NARCOTICS OR SEDATIVES SCH (08:00)
[2022-07-16] MEDS ORDERED: SODIUM CHLORIDE 0.9% 1000ML 1,000 ML IV SCH (08:00)
[2022-07-16] MEDS ORDERED: ePHEDrine sulfate 50 MG/ML AMP ONE (08:32)
[2022-07-16] MEDS ORDERED: OXYTOCIN 10 UNITS/ML VIAL ONE (08:32)
[2022-07-16] MEDS ORDERED: PHENYLEPHRINE 100MCG/ML 5ML SYR ONE (08:32)
[2022-07-16] MEDS ORDERED: METHYLERGONOVINE MALEATE 0.2 MG/ML AMP ONE (08:33)
[2022-07-16] MEDS ORDERED: HYDROCORTISONE ACETATE 25 MG SUPP PR PRN (09:19)
[2022-07-16] MEDS ORDERED: SENNA 8.6 MG TAB PO PRN (09:19)
[2022-07-16] MEDS ORDERED: DIPHTHERIA/TETANUS/PERTUSSIS 0.5 ML SYR/VIAL IM ONE (09:19)
[2022-07-16] MEDS ORDERED: MAGNESIUM HYDROXIDE SUSP 30 ML UDC PO PRN (09:19)
[2022-07-16] MEDS ORDERED: BENZOCAINE 20% AER SPR 82.5 GM CAN EXT PRN (09:19)
--- NOTE | 2022-07-16 09:19 | Post Operative Brief Note ---
Immediate Post Op Note v1 Date of Surgery July 16, 2022 Pre & Post Diagnosis Operation Date: 07/16/22 07:30 Pre-Op Diagnosis: intrauterine at term desires repeat section Post-Op Diagnosis: low transverse uterine section for delivery of live female at 0819 Operation Date: 07/22/22 07:30 <No data on this case meets the specified criteria> I identified the patient and participated in the time-out.: Yes Procedure Operation Date: 07/16/22 07:30 Actual Procedures p Section in LD for live female infant at 0819 - Frederick Loya MD Operation Date: 07/22/22 07:30 <No data on this case meets the specified criteria> Surgeon Frederick Loya MD Home Visits Nurse dr lion Estimated Blood Loss 600 Findings Consistent with Post-Op Diagnosis Drains [place] Catheter
[2022-07-16] MEDS ORDERED: OXYTOCIN 10 UNITS/ML 10ML VIAL IM ONE (09:26)
[2022-07-16] MEDS ORDERED: LACTATED RINGER'S 1,000 ML IV SCH (09:30)
[2022-07-16] MEDS ORDERED: OXYTOCIN 20 UNITS in LACTATED RINGER'S 1,000 ML IV SCH (10:00)
--- NOTE | 2022-07-16 10:12 | Anesthesiology Progress Note ---
Date of Service July 16, 2022 Anesthesia Post Procedure Vital Signs Vital Signs: Temp Pulse Resp BP Pulse Ox 07/16/22 09:50 14 07/16/22 09:40 16 07/16/22 09:30 14 07/16/22 09:20 36.4 C L 14 07/16/22 10:08 92 H 120/75 100 07/16/22 10:03 86 90 07/16/22 09:58 100 07/16/22 09:58 89 07/16/22 09:58 91 H 128/79 07/16/22 09:53 82 100 07/16/22 09:48 100 07/16/22 09:48 84 07/16/22 09:48 88 118/72 07/16/22 09:43 100 07/16/22 09:43 95 H 07/16/22 09:43 87 90 07/16/22 09:39 78 119/84 07/16/22 09:38 79 99 07/16/22 09:37 88 93 07/16/22 09:33 66 100 07/16/22 09:28 100 07/16/22 09:28 74 07/16/22 09:28 85 119/66 07/16/22 09:23 73 100 07/16/22 09:18 74 97 07/16/22 09:13 72 100 07/16/22 09:14 75 118/60 07/16/22 07:00 18 07/16/22 07:00 18 07/16/22 06:30 18 07/16/22 06:30 18 07/16/22 06:03 18 07/16/22 06:03 18 07/16/22 06:01 100 H 117/74 07/16/22 05:49 36.7 C 18 Transfer of Care Handoff Completed per policy Notes Mental Status: alert / awake / arousable and participated in evaluation Nausea / Vomiting: adequately controlled Pain: adequately controlled Airway Patency, RR, SpO2: stable & adequate BP & HR: stable & adequate Hydration State: stable & adequate Neuraxial Anesthesia: was administered and sensory block is resolving Anesthetic Complications: no major complications apparent and Pt Satisfied with anesthetic care
[2022-07-16] MEDS: KETOROLAC 30 MG/ML VIAL IV PRN ×3 (10:37→22:39)
--- NOTE | 2022-07-16 11:15 | Operative Report (OR) ---
DATE OF PROCEDURE: 07/16/2022 INDICATION FOR SURGERY: This is a 27-year-old G2, P1, scheduled for repeat section. PREOPERATIVE DIAGNOSES: 1. at term. 2. Previous section. POSTOPERATIVE DIAGNOSES: 1. at term. 2. Previous section. SURGEON: Frederick Loya MD. CHILD DEVELOPMENT DIRECTOR: Dr. Margarita Lara. ANESTHESIA: Spinal. DRAINS: None. ESTIMATED BLOOD LOSS: 600 mL. INTRAVENOUS FLUIDS: 1000 mL. URINE OUTPUT: 250 mL of clear urine at the end of the procedure. SPECIMEN: Placenta and cord blood. INTRAOPERATIVE COMPLICATIONS: None. CONDITION: Stable. DISPOSITION: Postanesthesia care unit. ATTESTATION: I performed the entire procedure. FINDINGS: Live female in cephalic presentation with body cord that was easily removed. s 9 and 9. There were some adhesions of the bladder to the lower uterine segment, which was easily d issected off. Both adnexa appeared grossly normal. Rest of the abdominopelvic exam was unremarkable . DESCRIPTION OF PROCEDURE: The patient was taken to the operating room where she was prepped and drap ed in normal sterile fashion. A timeout was called, Pfannenstiel incision was made through the old s car and carried down to the fascia with the scalpel. Fascia was incised in the midline and extended laterally on both sides. Fascia was sharply dissected off the rectus abdominis muscle. Peritoneum w as identified and entered sharply. An Long retractor was placed in the abdomen for retraction. As stated above, there were some adhesions of the bladder through the lower uterine segment. This was carefully dissected off. Vesicouterine peritoneum was sharply dissected off the lower segment of the uterus. A low transverse incision was made on the uterus and extended laterally on both sides using bandage scissors. Infant's head was delivered. There was a body cord, which was easily reduced. D elayed cord clamp was performed and was handed over to the waiting pediatric team. Infant's i nformation is in the pediatric record. Cord blood was obtained. Placenta was manually removed. Lower [place] ch[place] was exteriorized and cleared of all clots and debris. Uterus was closed in 2 layers using Vicryl suture. There was good hemostasis post-repair. Copious amount of irrigation was used to irrigate t he abdomen. The uterus was returned into the abdominal cavity, once again, hemostasis was established. Peritoneu m was closed in a running fashion using chromic suture. [id number] sutures were used to approxi mate the rectus abdominis muscle. Once again, hemostasis was established. The fascia was closed in a running fashion using Vicryl stitch. Subcutaneous space was approximated using plain suture. Skin was closed with 4-0 Monocryl. All instruments were removed from the abdomen including sponges, needles, and retractors. The patien t is sent to recovery in stable condition. Job ID: [id number]
[2022-07-16] MEDS: SIMETHICONE 80 MG CHEW PO SCH ×3 (14:28→20:06)
[2022-07-16] MEDS: DOCUSATE SODIUM 100 MG CAP PO SCH (20:06)
[2022-07-17] MEDS ORDERED: DC INTRASPINAL MORPHINE SCH (01:48)
[2022-07-17] MEDS ORDERED: diphenhydrAMINE Capsule 25 MG CAP PO PRN (01:49)
[2022-07-17] MEDS ORDERED: PROMETHAZINE HCL 25 MG in SODIUM CHLORIDE 0.9% 50 ML IV PRN (01:49)
[2022-07-17] MEDS ORDERED: ONDANSETRON INJ 2 MG/ML 2 ML VIAL IV PRN (01:49)
[2022-07-17] MEDS ORDERED: diphenhydrAMINE 50 MG/ML VIAL IV PRN (01:49)
[2022-07-17] MEDS: oxyCODONE/ACETAMINOPHEN 5mg/325mg TAB PO PRN ×5 (02:42→21:49)
[2022-07-17] MEDS: IBUPROFEN 600 MG TAB PO PRN ×5 (02:43→21:50)
[2022-07-17 06:48] LABS: Basophils # (auto) 0.03 K/uL (0-0.2); Basophils % (auto) 0.3 %; Eosinophils # (auto) 0.03 K/uL (0-0.50); Eosinophils % (auto) 0.3 %; Hematocrit (blood only) 32.6 % (34.1-44.9); Hemoglobin 10.7 g/dl (12.0-16.0); Immature Granulocytes # (auto) 0.07 K/uL (0.00-0.02); Immature Granulocytes % (auto) 0.6 %; Lymphocytes # (auto) 1.06 K/uL (1.2-3.4); Lymphocytes % (auto) 9.6 %; Mean Corpuscular Hemoglobin 29.2 pg (25.0-34.0); Mean Corpuscular Hgb Conc 32.8 g/dL (32.0-36.0); Mean Corpuscular Volume 88.8 fL (80.0-100.0); Mean Platelet Volume 8.9 fL (9.4-12.3); Monocytes # (auto) 0.79 K/uL (0.24-0.82); Monocytes % (auto) 7.2 %; Neutrophils # (auto) 9.04 K/uL (1.4-6.5); Platelet Count 165 K/uL (130-400); RDW Coefficient of Variation 18.7 % (11.5-14.5); RDW Standard Deviation 59.8 fL (36.4-46.3); Red Blood Count 3.67 M/uL (3.93-5.22); White Blood Count 11.02 K/ul (4.8-10.8)
[2022-07-17] MEDS: SIMETHICONE 80 MG CHEW PO SCH ×4 (07:55→19:40)
[2022-07-17] MEDS: PRENATAL VITAMIN 1 TAB PO SCH (07:55)
[2022-07-17] MEDS: DOCUSATE SODIUM 100 MG CAP PO SCH ×2 (07:55→19:40)
[2022-07-17] MEDS: FERROUS SULFATE 325 MG TAB PO SCH (07:55)
--- NOTE | 2022-07-17 11:28 | Obstetrical Progress Note ---
Date of Service July 17, 2022 Subjective Ambulation: ambulating normally Voiding: no voiding problems Passing Gas:: Yes Diet Tolerance:: regular diet Feeding Type:: breast feeding Current Pain Level(1-10): 0 doing well Physical Exam Constitutional WD/WN, vitals as above Gastrointestinal (Abdomen) normal bowel sounds, soft, nontender, no hepatosplenomegaly Inspection/Auscultation: abdomen normal to inspection and + abdominal surgical incision incision c/d/i Musculoskeletal Extremities: extremities normal to inspection Skin no rashes, warm and dry Neurologic patellar DTR's 2+ bilat, sensation intact Psychiatric A+Ox3, euthymic affect Results & Data ([facility]) Vital Signs (Past 12 Hours) Vital Signs Temp Pulse Resp BP Pulse Ox O2 Del Method 07/17/22 08:20 77 18 96/63 L Room Air 07/17/22 03:00 36.4 C L 83 16 97/66 L 98 07/17/22 02:00 16 98 07/17/22 02:00 18 97 07/17/22 01:00 18 97 07/17/22 00:00 16 99 Laboratory Results 07/16/22 07/16/22 07/16/22 05:59 06:01 Unknown WBC 6.99 RBC 4.24 Hgb 12.4 Hct 36.4 MCV 85.8 MCH 29.2 MCHC 34.1 RDW Std Deviation 57.6 H RDW Coeff of Sondra 18.6 H Plt Count 161 MPV 8.7 L Immature Gran % (Auto) 1.3 Neut % (Auto) 67.2 Lymph % (Auto) 20.9 [place] % (Auto) 9.0 Eos % (Auto) 1.0 Baso % (Auto) 0.6 Neut # (Auto) 4.70 Lymph # (Auto) 1.46 [place] # (Auto) 0.63 Eos # (Auto) 0.07 Baso # (Auto) 0.04 Immature Gran # (Auto) 0.09 H SARS-CoV-2, RNA, NAAT NEGATIVE Blood Type O Positive Antibody Screen NEGATIVE 07/17/22 05:35 WBC 11.02 H RBC 3.67 L Hgb 10.7 L Hct 32.6 L MCV 88.8 MCH 29.2 MCHC 32.8 RDW Std Deviation 59.8 H RDW Coeff of Sondra 18.7 H Plt Count 165 MPV 8.9 L Immature Gran % (Auto) 0.6 Neut % (Auto) 82.0 Lymph % (Auto) 9.6 [place] % (Auto) 7.2 Eos % (Auto) 0.3 Baso % (Auto) 0.3 Neut # (Auto) 9.04 H Lymph # (Auto) 1.06 L [place] # (Auto) 0.79 Eos # (Auto) 0.03 Baso # (Auto) 0.03 Immature Gran # (Auto) 0.07 H SARS-CoV-2, RNA, NAAT Blood Type Antibody Screen
[2022-07-17] MEDS ORDERED: bisacodyL 5 MG TABEC PO SCH (20:00)
[2022-07-18] MEDS: IBUPROFEN 600 MG TAB PO PRN ×3 (02:56→12:33)
[2022-07-18] MEDS: oxyCODONE/ACETAMINOPHEN 5mg/325mg TAB PO PRN ×3 (02:56→12:33)
[2022-07-18 06:51] LABS: Hematocrit (blood only) 29.3 % (34.1-44.9); Hemoglobin 9.6 g/dl (12.0-16.0)
[2022-07-18] MEDS: SIMETHICONE 80 MG CHEW PO SCH ×2 (07:55→12:33)
[2022-07-18] MEDS: PRENATAL VITAMIN 1 TAB PO SCH (07:56)
[2022-07-18] MEDS: FERROUS SULFATE 325 MG TAB PO SCH (07:56)
[2022-07-18] MEDS: DOCUSATE SODIUM 100 MG CAP PO SCH (07:56)
--- NOTE | 2022-07-18 08:46 | Obstetrical Progress Note ---
Date of Service July 18, 2022 Subjective Ambulation: ambulating normally Voiding: no voiding problems Passing Gas:: Yes Diet Tolerance:: regular diet Lochia:: Small Feeding Type:: breast feeding Current Pain Level(1-10): 0 doing well. plans for d/c Physical Exam Constitutional WD/WN, vitals as above Gastrointestinal (Abdomen) normal bowel sounds, soft, nontender, no hepatosplenomegaly abdomen soft and non-tender. fundus firm Musculoskeletal Extremities: extremities normal to inspection Skin no rashes, warm and dry Neurologic patellar DTR's 2+ bilat, sensation intact Psychiatric A+Ox3, euthymic affect Results & Data ([facility]) Vital Signs (Past 12 Hours) Vital Signs Temp Pulse Resp BP Pulse Ox O2 Del Method 07/18/22 07:52 36.4 C L 96 H 18 93/63 L Room Air 07/17/22 23:45 36.3 C L 89 18 111/72 100 Room Air Laboratory Results Laboratory Results - last 72 hr 07/16/22 07/16/22 07/16/22 05:59 06:01 Unknown WBC 6.99 RBC 4.24 Hgb 12.4 Hct 36.4 MCV 85.8 MCH 29.2 MCHC 34.1 RDW Std Deviation 57.6 H RDW Coeff of Sondra 18.6 H Plt Count 161 MPV 8.7 L Immature Gran % (Auto) 1.3 Neut % (Auto) 67.2 Lymph % (Auto) 20.9 [place] % (Auto) 9.0 Eos % (Auto) 1.0 Baso % (Auto) 0.6 Neut # (Auto) 4.70 Lymph # (Auto) 1.46 [place] # (Auto) 0.63 Eos # (Auto) 0.07 Baso # (Auto) 0.04 Immature Gran # (Auto) 0.09 H SARS-CoV-2, RNA, NAAT NEGATIVE Blood Type O Positive Antibody Screen NEGATIVE 07/17/22 07/18/22 05:35 06:26 WBC 11.02 H RBC 3.67 L Hgb 10.7 L 9.6 L Hct 32.6 L 29.3 L MCV 88.8 MCH 29.2 MCHC 32.8 RDW Std Deviation 59.8 H RDW Coeff of Sondra 18.7 H Plt Count 165 MPV 8.9 L Immature Gran % (Auto) 0.6 Neut % (Auto) 82.0 Lymph % (Auto) 9.6 [place] % (Auto) 7.2 Eos % (Auto) 0.3 Baso % (Auto) 0.3 Neut # (Auto) 9.04 H Lymph # (Auto) 1.06 L [place] # (Auto) 0.79 Eos # (Auto) 0.03 Baso # (Auto) 0.03 Immature Gran # (Auto) 0.07 H SARS-CoV-2, RNA, NAAT Blood Type Antibody Screen
[2022-07-18] MEDS ORDERED: bisacodyL 10 MG SUPP PR PRN (09:19)
== END 2022-07-18 13:20 | disposition home or self-care (01) | DRG 788 ==
LOC: 4S1 05:26 → 4E2 14:30 → EDSTATUS 07-22 07:30

== ENCOUNTER 2024-01-06 17:48 | Inpatient (IN) ==
--- NOTE | 2024-01-06 17:57 | ED Triage Note ---
Date of Service January 06, 2024 Provider in Triage Author: Ania Ahumada History of Present Illness This patient was briefly evaluated while in triage. An abbreviated physical exam was performed. This patient is a 28-year-old Female who presents to the ED for evaluation of neck pain since last Thursday. She has been going to the chiropractor. Last night she had visual changes with a black spot in her left eye about 1 hour before she went to sleep. Woke up today with resolution of the symptoms. Still having neck pain today, but no visual symptoms. Denies any other neurological symptoms. Her chiropractor referred her to rule out vertebral artery dissection or other etiology of her symptoms. Physical Exam GENERAL: Non-toxic and in no acute distress. HEENT: Pupils equal. No obvious scleral icterus. No nystagmus. EOMI without pain. HEART: Regular rate and rhythm. LUNGS: Clear to auscultation. No accessory muscle use. ABDOMEN: Soft, non-tender to palpation. NEURO: Alert and oriented. No obvious neurological deficits on quick neuro exam. MUSCULOSKELETAL: Full ROM of the bilateral upper and lower extremities. Initial orders for labs and / or imaging were placed and patient was placed in the waiting area until a bed is available. Please see further documentation for the full ED course. 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
[2024-01-06] MEDS: SODIUM CHLORIDE 0.9% 1,000 ML IV ONE (18:17)
[2024-01-06 18:40] LABS: iSTAT Creatinine 0.6 mg/dl (0.6-1.3); iSTAT Hemoglobin 14.3 g/dl (12.0-16.0); iSTAT Ionized Calcium 1.21 mmol/l (1.12-1.32); iSTAT Potassium 3.9 mmol/L (3.3-5.0)
[2024-01-06 19:23] LABS: Pregnancy Test, Serum Negative (Negative)
[2024-01-06] MEDS: OPTIRAY 320 125ml IV ONE (19:26)
--- NOTE | 2024-01-06 20:09 | CT Scan Report ---
Exam(s): CT HEAD Without Contrast EXAM: CT Head Without Intravenous Contrast CLINICAL HISTORY: Visual changes, neck pain. TECHNIQUE: Axial computed tomography images of the head/brain without intravenous contrast. CTDI is 37.42 mGy and DLP is 624.41 mGy-cm. Automated exposure control was utilized for the study. A dose lowering technique was utilized adhering to the principles of ALARA. COMPARISON: No relevant prior studies available. FINDINGS: Brain: Unremarkable. No significant white matter disease. No intracranial hemorrhage, mass-effect or midline shift. No abnormal extra axial fluid. No evidence of acute infarct. Ventricles: Unremarkable. No ventriculomegaly. Bones/joints: Unremarkable. No acute fracture. Soft tissues: Unremarkable. Sinuses: Unremarkable as visualized. No acute sinusitis. Mastoid air cells: Unremarkable as visualized. No mastoid effusion. IMPRESSION: No acute intracranial finding. Electronically signed by: Socorro Mederos MD 01/06/24 20:08 PM
--- NOTE | 2024-01-06 20:12 | CT Scan Report ---
Exam(s): CT C SPINE EXAM: CT Cervical Spine Without Intravenous Contrast CLINICAL HISTORY: Neck pain, chiropractic manipulation, visual chairez. TECHNIQUE: Axial computed tomography images of the cervical spine without intravenous contrast. CTDI is 21.34 mGy and DLP is 461.76 mGy-cm. Automated exposure control was utilized for the study. A dose lowering technique was utilized adhering to the principles of ALARA. COMPARISON: No relevant prior studies available. FINDINGS: Vertebrae: Unremarkable. No fracture or malalignment. Discs/spinal canal/neural foramina: No acute findings. No spinal canal stenosis. Soft tissues: Unremarkable. No prevertebral soft tissue swelling. IMPRESSION: No acute finding of the cervical spine. Electronically signed by: Socorro Mederos MD 01/06/24 20:11 PM
--- NOTE | 2024-01-06 20:28 | CT Scan Report ---
Exam(s): CTA HEAD With Contrast IV Amt: 118ML OPTIRAY 320 EXAM: CT Angiography Head With Intravenous Contrast CLINICAL HISTORY: Visual changes, chiropractic manipulation. TECHNIQUE: Axial computed tomographic angiography images of the head with intravenous contrast. CTDI is 37.42 mGy and DLP is 624.41 mGy-cm. Automated exposure control was utilized for the study. A dose lowering technique was utilized adhering to the principles of ALARA. MIP reconstructed images were created and reviewed. CONTRAST: Patient received 118ML OPTIRAY 320 of IV contrast COMPARISON: No relevant prior studies available. FINDINGS: Right internal carotid artery: No acute findings. Intracranial segment is patent with no significant stenosis. No aneurysm. Right anterior cerebral artery: Unremarkable. No occlusion or significant stenosis. No aneurysm. Right middle cerebral artery: Unremarkable. No occlusion or significant stenosis. No aneurysm. Right posterior cerebral artery: Unremarkable. No occlusion or significant stenosis. No aneurysm. Right vertebral artery: Unremarkable as visualized. Left internal carotid artery: No acute findings. Intracranial segment is patent with no significant stenosis. No aneurysm. Left anterior cerebral artery: Unremarkable. No occlusion or significant stenosis. No aneurysm. Left middle cerebral artery: Unremarkable. No occlusion or significant stenosis. No aneurysm. Left posterior cerebral artery: Unremarkable. No occlusion or significant stenosis. No aneurysm. Left vertebral artery: Unremarkable as visualized. Basilar artery: Unremarkable. No occlusion or significant stenosis. No aneurysm. IMPRESSION: No acute finding of the arteries of the head. Electronically signed by: Socorro Mederos MD 01/06/24 20:27 PM
--- NOTE | 2024-01-06 20:32 | CT Scan Report ---
Exam(s): CTA NECK With Contrast IV Amt: 118ML OPTIRAY 320 EXAM: CT Angiography Neck With Intravenous Contrast CLINICAL HISTORY: Neck pain, eval vert artery or carotid dissection. TECHNIQUE: Routine carotid CT angiography protocol was performed with intravenous contrast. NASCET criteria using the distal ICAs for comparison were used for evaluation of stenoses. CTDI is 21.53 mGy and DLP is 460 mGy-cm. Automated exposure control was utilized for the study. A dose lowering technique was utilized adhering to the principles of ALARA. MIP reconstructed images were created and reviewed. CONTRAST: Patient received 118ML OPTIRAY 320 of IV contrast COMPARISON: None. FINDINGS: VASCULATURE: Right common carotid artery: Unremarkable. No occlusion or significant stenosis. No dissection. Right internal carotid artery: Unremarkable. Extracranial segment is patent with no occlusion or significant stenosis. No dissection. Right external carotid artery: Unremarkable. No occlusion. Right vertebral artery: Unremarkable. No occlusion or significant stenosis. No dissection. Left common carotid artery: Unremarkable. No occlusion or significant stenosis. No dissection. Left internal carotid artery: Unremarkable. Extracranial segment is patent with no occlusion or significant stenosis. No dissection. Left external carotid artery: Unremarkable. No occlusion. Left vertebral artery: There is abrupt narrowing of the distal V3 left vertebral artery concerning for dissection. This measures approximately 5 cm in length. This narrows the lumen by approximately 75%. NECK: Bones/joints: Unremarkable. No acute fracture. Soft tissues: Unremarkable. Lung apices: Clear. CAROTID STENOSIS REFERENCE USING NASCET CRITERIA: % ICA stenosis = (1 - narrowest ICA diameter/diameter of distal cervical ICA) x 100. Mild - <50% stenosis. Moderate - 50-69% stenosis. Severe - 70-94% stenosis. Near occlusion - 95-99% stenosis. Occluded - 100% stenosis. IMPRESSION: There is abrupt narrowing of the distal V3 left vertebral artery concerning for dissection. This measures approximate 5 cm in length. This narrows the lumen by approximately 75%. Communications: Call Doctor Above results Electronically signed by: Socorro Mederos MD 01/06/24 20:30 PM
--- NOTE | 2024-01-06 20:58 | Emergency Department Note ---
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 The patient has been experiencing neck pain over the course of the last 10 days. She has had 4 visits to a chiropractor. Initially the visits were for just stretching and massage but then she started having some corrections of her cervical spine. She states the pain initially was on the left side but then proceeded to the right side. She states that last evening around 10 PM she started having problems with her left eye vision. She notices a central scotoma which resolved. She denies having any dizziness or vomiting. The patient has not been seen by her family doctor. She was advised to come to the emergency department for further evaluation. ROS: See above HPI for pertinent positives & negatives. A total of 10 systems reviewed and were otherwise negative. PAST MEDICAL HISTORY: See Below PAST SURGICAL HISTORY: See Below FAMILY HISTORY: See Below SOCIAL HISTORY: See Below HOME MEDICATIONS: See Below ALLERGIES: See Below VITALS: See Below PHYSICAL EXAMINATION: GENERAL: Patient is awake alert in no acute distress patient is resting comfortably and showing no signs of anxiety EYES: The conjunctivae are clear. The pupils are round and reactive. EARS, NOSE, MOUTH AND THROAT: The nose is without any evidence of any deformity. NECK: There is musculoskeletal tenderness over the paravertebral musculature of the cervical spine. RESPIRATORY: Normal respiratory effort is noted there is no evidence of wheezing rhonchi or rales CARDIOVASCULAR: Regular rate and rhythm noted there no murmurs rubs or gallops normal S1 normal S2. GASTROINTESTINAL: The abdomen is soft. Abdomen is nontender. MUSCULOSKELETAL/EXTREMITIES: There is no evidence of gross deformity full range of motion is noted in the hips and shoulders. SKIN: There is no obvious evidence of any rash. There are no petechiae, pallor or cyanosis noted. NEUROLOGIC: Patient is awake alert and oriented x3 strength is symmetric patellar reflexes are 2+ bilaterally. Gait was steady. MEDICAL DECISION MAKING: Patient is a 28-year-old female who presented to the emergency department for an evaluation of transient vision loss with a central scotoma in her left eye. The patient was recently evaluated by chiropractor and did receive therapy in the office. Patient presented to the emergency department for further evaluation. She had no focal neurologic deficit on my physical exam. Initial blood pressure was elevated but on reevaluation this was improved. I discussed the patient's laboratory and radiographic studies with her. She was found to have a vertebral dissection. She was treated with Plavix and aspirin load after I discussed her condition with the on-call neurologist. I discussed her condition with the on- call [facility] hospitalist. They have agreed to evaluate the patient in the emergency department for further management and disposition. Triage Nursing notes reviewed. Prior medical records reviewed Vital Signs: reviewed and remarkable for no significant abnormalities Differential diagnosis: Conjunctivitis, trauma, corneal abrasion, hyphema, glaucoma, iritis, corneal ulcer, dendrite, CRAO, CRVO, vitreous detachment, retinal detachment, as well as other pathologies. ER treatment provided: See below Diagnostics interpreted by me: ECG: EKG was obtained in the emergency department. My interpretation is normal sinus rhythm at 81 beats per. There is no ectopy. Incomplete right bundle branch block pattern was noted. No previous tracing was available. Cardiac Monitoring: An order was placed for continuous cardiac monitoring. The monitor shows a rate of beats per minute with sinus rhythm. Laboratory studies: As stated above and show below. Imaging studies: See below. Radiographic imaging was reviewed by myself Consultation(s): I discussed this case with Dr. Dumont who is on-call for the neurology group. I discussed this case with Dr. Mari who is on-call for the [facility] hospitalist group Past Med/Surg History Medical History Anemia current iron level low - planning for upcoming iron infusions (not scheduled yet , should be next week) Patient denies significant medical history History of anesthesia reaction with previous c/s (emergency) had epidural during labor ; pt reports doesn't know if it was effective during labor for pain relief/could still feel pain and wasn't sure if anything was added to it for c/s , pt could feel c/s "very traumatic" Surgical History History of low transverse section Family History Grandfather (Paternal) Cardiac disorder Myocardial infarction Uncle Coronary heart disease Hypercholesteremia Father Hypercholesteremia Hypertension Mother Hypertension Thyroid disease Multiple gestation Grandmother (Maternal) Malignant neoplasm of cervix Sister Gestational diabetes Social History Smoking Status: Never smoker Second Hand Exposure: No; Do You Dip or Chew Tobacco: No; Hx Alcohol Use: No Hx Substance Use: No Preferred Language: Afghan Communication Ability: Effective Visual Impairment: No Limitations Hearing Ability: Normal Logging Operations Inspector Required: No Beliefs That Will Affect Care: None marital status: marital status details: Harris Bazan (25) [phone] Current Living Situation: Family current occupational status: employed 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 @ [employer] Feels Safe at Home: Yes Dental Care, Regularly: Yes Physical Activity Frequency: 1-2 Times per Week Seatbelt Use: always Assistive Devices: None Allergies Allergies Allergy/AdvReac Type Severity Reaction Status Date / Time No Known Allergies Allergy Verified 01/06/24 21:37 Home Meds Home Medications Medication Instructions Recorded Confirmed No Known Home Medications 01/06/24 01/06/24 Results & Data (ED) Vital Signs Vital Signs - 24 hr 01/06/24 17:54 01/06/24 20:58 01/06/24 21:59 Temperature 36.9 C Temperature Source Temporal Artery Scan Pulse Rate 100 H 92 H Pulse Rate [Apical] 81 Respiratory Rate 20 16 Respiratory Effort / Characteristics Non-Labored Spontaneous Respiratory Depth Normal Blood Pressure 143/93 H Blood Pressure [Left Arm] 126/96 Blood Pressure Mean 109 Blood Pressure Mean [Left Arm] 106 Pulse Oximetry 100 98 Oxygen Delivery Method Room Air Room Air Sepsis Recent Fever Within 48 Hours No Sepsis New/Unexplained Change in Mental Status N/A Sepsis Action Taken by Nursing No Action Required 01/06/24 21:59 Temperature Temperature Source Pulse Rate Pulse Rate [Apical] Respiratory Rate Respiratory Effort / Characteristics Respiratory Depth Blood Pressure Blood Pressure [Left Arm] Blood Pressure Mean Blood Pressure Mean [Left Arm] Pulse Oximetry 98 Oxygen Delivery Method Room Air Sepsis Recent Fever Within 48 Hours Sepsis New/Unexplained Change in Mental Status Sepsis Action Taken by Alf Medications Current Medication List: was personally reviewed by me Laboratory Data Attestation: I reviewed the patient's lab results. 01/06/24 21:30 01/06/24 21:30 Lab Results 01/06/24 01/06/24 01/06/24 Range/Units 18:18 18:27 21:30 WBC 7.71 (4.8-10.8) K/ul RBC 4.44 (4.20-5.40) M/uL Hgb 12.9 (12.0-16.0) g/dl POC Hgb 14.3 (12.0-16.0) g/dl Hct 38.8 (37.0-47.0) % POC Hct 42 (37-47) % MCV 87.4 (80.0-100.0) fL MCH 29.1 (25.0-34.0) pg MCHC 33.2 (32.0-36.0) g/dL RDW Std Deviation 37.8 (36.4-46.3) fL RDW Coeff of Sondra 11.9 (11.5-14.5) % Plt Count 340 (130-400) K/uL MPV 8.5 L (9.4-12.4) fL Immature Gran % (Auto) 0.3 % Neut % (Auto) 62.5 % Lymph % (Auto) 27.5 % Storey % (Auto) 8.3 % Eos % (Auto) 1.0 % Baso % (Auto) 0.4 % Neut # (Auto) 4.82 (1.40-6.50) K/uL Lymph # (Auto) 2.12 (1.20-3.40) K/uL Storey # (Auto) 0.64 H (0.11-0.59) K/uL Eos # (Auto) 0.08 (0.00-0.50) K/uL Baso # (Auto) 0.03 (0.00-0.20) K/uL Immature Gran # (Auto) 0.02 (0.01-0.20) K/uL PT 11.5 (9.0-12.0) Seconds INR 1.1 (0.9-1.1) APTT 29 (21-31) Seconds PTT Ratio 1.0 POC Sodium 141 (135-144) mmol/L Sodium 138 (136-145) mmol/L POC Potassium 3.9 (3.3-5.0) mmol/L Potassium 3.8 (3.5-5.1) mmol/L POC Chloride 103 (101-112) mmol/L Chloride 108 H (98-107) mmol/L Carbon Dioxide 23 (21-32) mmol/L POC Total CO2 25 (24-31) mmol/L Anion Gap 7 (3-11) POC Anion Gap 18.0 (16-25) mmol/L POC BUN 9 (7-18) mg/dl BUN 9 (6-23) mg/dl Creatinine 0.56 L (0.6-1.2) mg/dl POC Creatinine 0.6 (0.6-1.3) mg/dl Est Cr Clr Drug Dosing 134.6 ml/min Est GFR ( Amer) 147.1 ml/min Est GFR (Non-Af Amer) 126.9 ml/min BUN/Creatinine Ratio 16.1 (10-20) Glucose 86 (70-99(Fasting)) mg/dl POC Glucose (other) 95 (70-99) mg/dl Calcium 8.7 (8.6-10.3) mg/dl POC Ioniz Calcium Carolyn 1.21 (1.12-1.32) mmol/l Total Bilirubin 0.5 (0.2-1.0) mg/dl AST 16 (13-39) U/L ALT 15 (7-52) U/L Alkaline Phosphatase 58 (34-104) U/L Troponin I High Sens < 2.3 (0-14) pg/ml Total Protein 7.1 (6.0-8.3) gm/dl Albumin 4.1 (3.4-5.0) gm/dl Globulin 3.0 (2.5-4.0) gm/dl Albumin/Globulin Ratio 1.4 (0.9-2) Lipase 24 (11-82) U/L HCG, Qual Negative (Negative) Administered Medications Discontinued Medications Aspirin (Aspirin Chew 324 Mg) 324 mg PO NOW STA Stop: 01/06/24 21:06 Last Admin: 01/06/24 21:20 Dose: 324 mg Documented By: SETH Clopidogrel Bisulfate (Clopidogrel Bisulfate 300 Mg Tab) 300 mg PO NOW STA Stop: 01/06/24 21:06 Last Admin: 01/06/24 21:20 Dose: 300 mg Documented By: SETH Sodium Chloride (Nss) 1,000 mls @ 999 mls/hr IV .Q1H1M ONE Stop: 01/06/24 18:57 Last Infusion: 01/06/24 19:49 Dose: Infused Documented By: Admin: 01/06/24 18:17 Dose: 999 mls/hr Documented By: TANIKA Ioversol (Optiray 320 125ml) 118 ml IV ONCE ONE Stop: 01/06/24 19:27 Last Admin: 01/06/24 19:26 Dose: 118 ml Documented By: ALONSO Pantoprazole Sodium (Pantoprazole 40 Mg Tab) 40 mg PO NOW STA Stop: 01/06/24 21:06 Last Admin: 01/06/24 21:21 Dose: 40 mg Documented By: SETH Imaging Data My Impression: CT of the brain was obtained in the emergency department. My interpretation is no intracranial hemorrhage or mass effect, final report below Radiologist's Impression: Cervical Spine CT 01/06/24 17:57 Exam(s): CT C SPINE EXAM: CT Cervical Spine Without Intravenous Contrast CLINICAL HISTORY: Neck pain, chiropractic manipulation, visual chairez. TECHNIQUE: Axial computed tomography images of the cervical spine without intravenous contrast. CTDI is 21.34 mGy and DLP is 461.76 mGy-cm. Automated exposure control was utilized for the study. A dose lowering technique was utilized adhering to the principles of ALARA. COMPARISON: No relevant prior studies available. FINDINGS: Vertebrae: Unremarkable. No fracture or malalignment. Discs/spinal canal/neural foramina: No acute findings. No spinal canal stenosis. Soft tissues: Unremarkable. No prevertebral soft tissue swelling. IMPRESSION: No acute finding of the cervical spine. Electronically signed by: Socorro Mederos MD 01/06/24 20:[address] 01/06/24 17:57 Exam(s): CT HEAD Without Contrast EXAM: CT Head Without Intravenous Contrast CLINICAL HISTORY: Visual changes, neck pain. TECHNIQUE: Axial computed tomography images of the head/brain without intravenous contrast. CTDI is 37.42 mGy and DLP is 624.41 mGy-cm. Automated exposure control was utilized for the study. A dose lowering technique was utilized adhering to the principles of ALARA. COMPARISON: No relevant prior studies available. FINDINGS: Brain: Unremarkable. No significant white matter disease. No intracranial hemorrhage, mass-effect or midline shift. No abnormal extra axial fluid. No evidence of acute infarct. Ventricles: Unremarkable. No ventriculomegaly. Bones/joints: Unremarkable. No acute fracture. Soft tissues: Unremarkable. Sinuses: Unremarkable as visualized. No acute sinusitis. Mastoid air cells: Unremarkable as visualized. No mastoid effusion. IMPRESSION: No acute intracranial finding. Electronically signed by: Socorro Mederos MD 01/06/24 20:08 PM Head CTA 01/06/24 17:57 Exam(s): CTA HEAD With Contrast IV Amt: 118ML OPTIRAY 320 EXAM: CT Angiography Head With Intravenous Contrast CLINICAL HISTORY: Visual changes, chiropractic manipulation. TECHNIQUE: Axial computed tomographic angiography images of the head with intravenous contrast. CTDI is 37.42 mGy and DLP is 624.41 mGy-cm. Automated exposure control was utilized for the study. A dose lowering technique was utilized adhering to the principles of ALARA. MIP reconstructed images were created and reviewed. CONTRAST: Patient received 118ML OPTIRAY 320 of IV contrast COMPARISON: No relevant prior studies available. FINDINGS: Right internal carotid artery: No acute findings. Intracranial segment is patent with no significant stenosis. No aneurysm. Right anterior cerebral artery: Unremarkable. No occlusion or significant stenosis. No aneurysm. Right middle cerebral artery: Unremarkable. No occlusion or significant stenosis. No aneurysm. Right posterior cerebral artery: Unremarkable. No occlusion or significant stenosis. No aneurysm. Right vertebral artery: Unremarkable as visualized. Left internal carotid artery: No acute findings. Intracranial segment is patent with no significant stenosis. No aneurysm. Left anterior cerebral artery: Unremarkable. No occlusion or significant stenosis. No aneurysm. Left middle cerebral artery: Unremarkable. No occlusion or significant stenosis. No aneurysm. Left posterior cerebral artery: Unremarkable. No occlusion or significant stenosis. No aneurysm. Left vertebral artery: Unremarkable as visualized. Basilar artery: Unremarkable. No occlusion or significant stenosis. No aneurysm. IMPRESSION: No acute finding of the arteries of the head. Electronically signed by: Socorro Mederos MD 01/06/24 20:27 PM Neck CTA 01/06/24 17:57 CR Exam(s): CTA NECK With Contrast IV Amt: 118ML OPTIRAY 320 EXAM: CT Angiography Neck With Intravenous Contrast CLINICAL HISTORY: Neck pain, eval vert artery or carotid dissection. TECHNIQUE: Routine carotid CT angiography protocol was performed with intravenous contrast. NASCET criteria using the distal ICAs for comparison were used for evaluation of stenoses. CTDI is 21.53 mGy and DLP is 460 mGy-cm. Automated exposure control was utilized for the study. A dose lowering technique was utilized adhering to the principles of ALARA. MIP reconstructed images were created and reviewed. CONTRAST: Patient received 118ML OPTIRAY 320 of IV contrast COMPARISON: None. FINDINGS: VASCULATURE: Right common carotid artery: Unremarkable. No occlusion or significant stenosis. No dissection. Right internal carotid artery: Unremarkable. Extracranial segment is patent with no occlusion or significant stenosis. No dissection. Right external carotid artery: Unremarkable. No occlusion. Right vertebral artery: Unremarkable. No occlusion or significant stenosis. No dissection. Left common carotid artery: Unremarkable. No occlusion or significant stenosis. No dissection. Left internal carotid artery: Unremarkable. Extracranial segment is patent with no occlusion or significant stenosis. No dissection. Left external carotid artery: Unremarkable. No occlusion. Left vertebral artery: There is abrupt narrowing of the distal V3 left vertebral artery concerning for dissection. This measures approximately 5 cm in length. This narrows the lumen by approximately 75%. NECK: Bones/joints: Unremarkable. No acute fracture. Soft tissues: Unremarkable. Lung apices: Clear. CAROTID STENOSIS REFERENCE USING NASCET CRITERIA: % ICA stenosis = (1 - narrowest ICA diameter/diameter of distal cervical ICA) x 100. Mild - <50% stenosis. Moderate - 50-69% stenosis. Severe - 70-94% stenosis. Near occlusion - 95-99% stenosis. Occluded - 100% stenosis. IMPRESSION: There is abrupt narrowing of the distal V3 left vertebral artery concerning for dissection. This measures approximate 5 cm in length. This narrows the lumen by approximately 75%. 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
[2024-01-06] MEDS: ASPIRIN CHEW 324 MG PO STA (21:20)
[2024-01-06] MEDS: CLOPIDOGREL BISULFATE 300 MG TAB PO STA (21:20)
[2024-01-06] MEDS: PANTOprazole 40 MG TAB PO STA (21:21)
[2024-01-06 21:50] LABS: Basophils # (auto) 0.03 K/uL (0.00-0.20); Basophils % (auto) 0.4 %; Eosinophils # (auto) 0.08 K/uL (0.00-0.50); Hematocrit (blood only) 38.8 % (37.0-47.0); Hemoglobin 12.9 g/dl (12.0-16.0); Immature Granulocytes # (auto) 0.02 K/uL (0.01-0.20); Immature Granulocytes % (auto) 0.3 %; Lymphocytes # (auto) 2.12 K/uL (1.20-3.40); Lymphocytes % (auto) 27.5 %; Mean Corpuscular Hemoglobin 29.1 pg (25.0-34.0); Mean Corpuscular Hgb Conc 33.2 g/dL (32.0-36.0); Mean Corpuscular Volume 87.4 fL (80.0-100.0); Mean Platelet Volume 8.5 fL (9.4-12.4); Monocytes # (auto) 0.64 K/uL (0.11-0.59); Monocytes % (auto) 8.3 %; Neutrophils # (auto) 4.82 K/uL (1.40-6.50); Neutrophils % (auto) 62.5 %; Platelet Count 340 K/uL (130-400); RDW Coefficient of Variation 11.9 % (11.5-14.5); RDW Standard Deviation 37.8 fL (36.4-46.3); Red Blood Count 4.44 M/uL (4.20-5.40); White Blood Count 7.71 K/ul (4.8-10.8)
[2024-01-06 22:05] LABS: INR 1.1 (0.9-1.1); Partial Thromboplastin Time 29 Seconds (21-31); Prothrombin Time 11.5 Seconds (9.0-12.0)
[2024-01-06 22:23] LABS: Albumin Level 4.1 gm/dl (3.4-5.0); Anion Gap 7 (3-11); Bilirubin,Total 0.5 mg/dl (0.2-1.0); Calcium 8.7 mg/dl (8.6-10.3); Carbon Dioxide 23 mmol/L (21-32); Chloride 108 mmol/L (98-107); Potassium 3.8 mmol/L (3.5-5.1); Sodium 138 mmol/L (136-145)
[2024-01-06 22:26] LABS: Troponin I High Sensitivity < 2.3 pg/ml (0-14)
[2024-01-06 22:30] LABS: Alanine Aminotransferase 15 U/L (7-52); Albumin Globulin Ratio 1.4 (0.9-2); Alkaline Phosphatase 58 U/L (34-104); Aspartate Aminotransferase 16 U/L (13-39); BUN Creatinine Ratio 16.1 (10-20); Blood Urea Nitrogen 9 mg/dl (6-23); Creatinine Clr Calc Pharmacy 134.6 ml/min; Est GFR (African American) 147.1 ml/min; Est GFR (Non-African American) 126.9 ml/min; Glucose 86 mg/dl (70-99(Fasting)); Lipase 24 U/L (11-82); Total Protein 7.1 gm/dl (6.0-8.3)
--- NOTE | 2024-01-06 22:31 | History & Physical Report ---
Date of Service January 06, 2024 Assessment & Plan (1) Dissection of vertebral artery: Plan: -Transient scotoma of the L eye overnight without any other noticeable symptoms. -CTA of neck revealed narrowing of distal V3 L vertebral artery concerning for dissection, measures 5cm in length, narrows lumen by 75%. -Transient scotoma may have been from small embolus due to dissection that resulted in transient central retinal artery occlusion. -Will initiate stroke workup with MRI of the brain, echo with bubble study, neuro checks. -ER discussed with neurology, given 324mg ASA and 300mg Clopidogrel. -Neurology consulted, will appreciate recs. -Admit to med/tele. Plan F/E/N/GI: Regular diet DVT Prophylaxis: SCD Code: Full Dispo: Med/tele History of Present Illness Chief Complaint: Visual field defect Primary Care Provider: JAROD Benavides Fariha is a 28 year old female with no significant past medical history coming in for transient L eye scotoma. Patient states that December 24 she felt a pop at her neck. She subsequently went to go see a chiropractor for evaluation on the and had been given exercises to do at home. She did not improve and so Thursday the she went back and had an adjustment, with additional adjustment Thursday. Thursday night around 10PM she had developed a central visual field defect of black mary's igloo/spot which persisted no matter what direction she looked. She states that she went to bed and then woke up around 6:30AM today with the spot resolved and able to see as she normally does without deficit. She went back to the chiropractor however they told her to come to the ER due to concern for possible stroke or dissection. She denies any other issues, no fevers, chills, shortness of breath, muscle weakness, numbness or tingling, hearing changes, photosensitivity, phonosensitivity. She had a URI in November with a cough for a few weeks but did not have any nausea/vomiting or trauma to the area. When the pop occurred initially she was bending down to mushroom picker her toddler. No past history of any hypermobility from patient, denies past history of cardiac issues. Denies family history of hypermobility or EDS. In the ER CBC, CMP, lipase, HCG negative. CTA of the neck showed abrupt narrowing of distal V3 left vertebral artery concerning for dissection, measures approximate 5cm in length, narrows the lumen by approximately 75%. Allergies Allergy/AdvReac Type Severity Reaction Status Date / Time No Known Allergies Allergy Verified 01/06/24 21:37 Home Medications Medication Instructions Recorded Confirmed Type No Known Home Medications 01/06/24 01/06/24 History Past Med/Surg History Medical History Anemia current iron level low - planning for upcoming iron infusions (not scheduled yet , should be next week) Patient denies significant medical history History of anesthesia reaction with previous c/s (emergency) had epidural during labor ; pt reports doesn't know if it was effective during labor for pain relief/could still feel pain and wasn't sure if anything was added to it for c/s , pt could feel c/s "very traumatic" Surgical History History of low transverse section Family History Grandfather (Paternal) Cardiac disorder Myocardial infarction Uncle Coronary heart disease Hypercholesteremia Father Hypercholesteremia Hypertension Mother Hypertension Thyroid disease Multiple gestation Grandmother (Maternal) Malignant neoplasm of cervix Sister Gestational diabetes Social History Smoking Status: Never smoker Second Hand Exposure: No; Do You Dip or Chew Tobacco: No; Hx Alcohol Use: No Hx Substance Use: No Preferred Language: Turkmen Communication Ability: Effective Visual Impairment: No Limitations Hearing Ability: Normal Collection Systems Consultant Required: No Beliefs That Will Affect Care: None marital status: marital status details: Harris Mehta (25) [phone] Current Living Situation: Family current occupational status: employed 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 Physical Exam Constitutional: WD/WN, vitals as above Eyes: PERRL, conjunctivae normal, anicteric sclerae ENMT: external ear and nose normal, oropharynx normal Respiratory: normal respiratory effort, lungs clear to auscultation Gastrointestinal (Abdomen): normal bowel sounds, soft, nontender, no hepatosplenomegaly Musculoskeletal: no cyanosis or clubbing, extremities motor strength 5/5 Beighton screening without positive findings. Skin: no rashes, warm and dry Neurologic: PERRL, EOMI, accommodation nl, no face palsy, no dysarthria CN's II-XI intact bilaterally Psychiatric: A+Ox3, euthymic affect Results & Data Results & Data Vital Signs (Past 12 Hours) Vital Signs Temp Pulse Pulse Resp BP BP Pulse Ox 01/06/24 21:59 98 01/06/24 21:59 81 16 126/96 98 01/06/24 20:58 92 H 01/06/24 17:54 36.9 C 100 H 20 143/93 H 100 O2 Del Method 01/06/24 21:59 Room Air 01/06/24 21:59 Room Air 01/06/24 20:58 01/06/24 17:54 Room Air Supervising Physician Co-Signing Physician Notes Patient seen and examined, chart reviewed, case discussed with Dr. Hickey and I agree with the assessment and plan as documented above. In brief, patient is a 28-year-old female with no significant past medical history presenting with transient visual changes in the left eye. She reports on 12/25/2023 she felt a pop in her left neck and has had continued pain at that site. She has been seen by her chiropractor and has had several manipulations during that time. Last evening around 2200 she developed a central visual field deficit which has since resolved. No additional complaints at this time. She does have ongoing neck pain. In the ER patient afebrile, hemodynamically stable, no acute distress skin warm, no rashes or lesions HEENTneck supple, pupils equal round reactive to light, moist mucous membranes Heart+ S1, S2, regular, no murmur/rub/gallops Lungs with equal air entry bilaterally, no rales/rhonchi/wheezes Abdomenpositive bowel sounds, soft, nontender, nondistended Extremitieswarm, well-perfused Neuro grossly intact with no deficits Labs and images reviewed. CT of the neck with abrupt narrowing of the distal V3 left vertebral artery concerning for dissection. Deficit measures 5 cm in length. No acute findings of the arteries of the head Assessment/[id number] female with no significant medical or surgical history presenting with transient visual deficit and ongoing left neck pain. Found to have dissection of the left vertebral artery at the V3 measuring 5 cm in length. No intracranial involvement. CT of the head without hemorrhage. Case discussed with neurology. Will admit to medical telemetry Continue frequent neurochecks Check MRI brain Check 2D echo with bubble study Patient given aspirin and Plavix load. Will continue aspirin 81 mg p.o. daily and Plavix 75 mg p.o. daily Neurology consultation appreciated Remainder of plan as above Resident Activity Tracking Resident Involvement: Resident Care Provided Care Provided: Adult [facility]
[2024-01-07] MEDS ORDERED: POLYETHYLENE (MIRALAX) 17 GM PACK PO PRN (00:22)
[2024-01-07] MEDS ORDERED: PHARMACIST DISCHARGE MED REC CONSULT PRN (00:22)
[2024-01-07] MEDS ORDERED: ONDANSETRON INJ 2 MG/ML 2 ML VIAL IV PRN (00:22)
--- NOTE | 2024-01-07 01:29 | Billing Data ---
Date of Service January 06, 2024 Coding Level of Care Code 22606 INT INP/OBS CARE
[2024-01-07] MEDS: ACETAMINOPHEN 325 MG TAB PO PRN (02:08)
[2024-01-07 04:09] LABS: Basophils # (auto) 0.04 K/uL (0.00-0.20); Basophils % (auto) 0.6 %; Eosinophils # (auto) 0.15 K/uL (0.00-0.50); Eosinophils % (auto) 2.1 %; Hematocrit (blood only) 35.2 % (37.0-47.0); Hemoglobin 11.9 g/dl (12.0-16.0); Immature Granulocytes # (auto) 0.02 K/uL (0.01-0.20); Immature Granulocytes % (auto) 0.3 %; Lymphocytes # (auto) 2.39 K/uL (1.20-3.40); Lymphocytes % (auto) 34.1 %; Mean Corpuscular Hemoglobin 29.1 pg (25.0-34.0); Mean Corpuscular Hgb Conc 33.8 g/dL (32.0-36.0); Mean Corpuscular Volume 86.1 fL (80.0-100.0); Mean Platelet Volume 8.5 fL (9.4-12.4); Monocytes # (auto) 0.74 K/uL (0.11-0.59); Monocytes % (auto) 10.6 %; Neutrophils # (auto) 3.67 K/uL (1.40-6.50); Neutrophils % (auto) 52.3 %; Platelet Count 313 K/uL (130-400); RDW Coefficient of Variation 11.9 % (11.5-14.5); RDW Standard Deviation 37.3 fL (36.4-46.3); Red Blood Count 4.09 M/uL (4.20-5.40); White Blood Count 7.01 K/ul (4.8-10.8)
--- NOTE | 2024-01-07 04:29 | Magnetic Resonance Report ---
Exam(s): MRI HEAD Without Contrast EXAM: MR Head Without Intravenous Contrast CLINICAL HISTORY: Transient left eye scotoma. TECHNIQUE: Magnetic resonance images of the head/brain without intravenous contrast in multiple planes. COMPARISON: CT head 01/06/2024 FINDINGS: Brain: Unremarkable. No mass. No hemorrhage. No acute infarct. Ventricles: Unremarkable. No ventriculomegaly. Bones/joints: Unremarkable. No acute fracture. Sinuses: Mild mucosal thickening of the right ethmoid and sphenoid sinuses. No acute sinusitis. Mastoid air cells: Unremarkable as visualized. No mastoid effusion. Orbits: Unremarkable as visualized. IMPRESSION: 1. Mild mucosal thickening of the right ethmoid and sphenoid sinuses. Cannot exclude acute sinusitis. 2. Otherwise, no acute finding. Electronically signed by: Socorro Mederos MD 01/07/24 04:28 AM
[2024-01-07 04:32] LABS: BUN Creatinine Ratio 16.7 (10-20); Calcium 8.4 mg/dl (8.6-10.3); Chol HDL Ratio 2.4 (0-5); Creatinine Clr Calc Pharmacy 125.6 ml/min; Est GFR (African American) 143.8 ml/min; Potassium 3.7 mmol/L (3.5-5.1)
[2024-01-07 06:45] LABS: Estimated Average Glucose 111 mg/dl; Hemoglobin A1C 5.5 % (4.5-5.6)
--- NOTE | 2024-01-07 09:30 | Neurology Consultation ---
Date of Consultation January 07, 2024 Assessment & Plan (1) Dissection of vertebral artery: History of Present Illness Attending Physician: Miguel Jacobo DO History of Present Illness pt this morning feel ok, only having throbbing sharp pain along the rt side skull base and upper cervical area. no weakness or vision change. no imbalance. no swallowing problem. mri brain negative. chart reviewed. admission HPI: Fariha is a 28 year old female with no significant past medical history coming in for transient L eye scotoma. Patient states that December 24 she felt a pop at her neck. She subsequently went to go see a chiropractor for evaluation on the and had been given exercises to do at home. She did not improve and so Thursday the she went back and had an adjustment, with additional adjustment Thursday. Thursday night around 10PM she had developed a central visual field defect of [place]/spot which persisted no matter what direction she looked. She states that she went to bed and then woke up around 6:30AM today with the spot resolved and able to see as she normally does without deficit. She went back to the chiropractor however they told her to come to the ER due to concern for possible stroke or dissection. She denies any other issues, no fevers, chills, shortness of breath, muscle weakness, numbness or tingling, hearing changes, photosensitivity, phonosensitivity. She had a URI in November with a cough for a few weeks but did not have any nausea/vomiting or trauma to the area. When the pop occurred initially she was bending down to picker tender helper her toddler. No past history of any hypermobility from patient, denies past history of cardiac issues. Denies family history of hypermobility or EDS. In the ER CBC, CMP, lipase, HCG negative. CTA of the neck showed abrupt narrowing of distal V3 left vertebral artery concerning for dissection, measures approximate 5cm in length, narrows the lumen by approximately 75%. Allergies Allergy/AdvReac Type Severity Reaction Status Date / Time No Known Allergies Allergy Verified 01/06/24 21:37 Home Medications Medication Instructions Recorded Confirmed Type No Known Home Medications 01/06/24 01/06/24 History Patient History Medical History Anemia current iron level low - planning for upcoming iron infusions (not scheduled yet , should be next week) Patient denies significant medical history History of anesthesia reaction with previous c/s (emergency) had epidural during labor ; pt reports doesn't know if it was effective during labor for pain relief/could still feel pain and wasn't sure if anything was added to it for c/s , pt could feel c/s "very traumatic" Surgical History History of low transverse section Family History Grandfather (Paternal) Cardiac disorder Myocardial infarction Uncle Coronary heart disease Hypercholesteremia Father Hypercholesteremia Hypertension Mother Hypertension Thyroid disease Multiple gestation Grandmother (Maternal) Malignant neoplasm of cervix Sister Gestational diabetes Social History Smoking Status: Never smoker Second Hand Exposure: No; Do You Dip or Chew Tobacco: No; Tobacco Cessation Education Requested by Patient: No Hx Alcohol Use: No Hx Substance Use: No Preferred Language: Korean Communication Ability: Effective Visual Impairment: No Limitations Hearing Ability: Normal Plumber'S Helper Required: No Beliefs That Will Affect Care: None marital status: marital status details: Harris Mehta ([id number]) [phone] Current Living Situation: Spouse current occupational status: employed 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 Motor: No abnormal movements, normal tone and bulk, 5/5 t/o bilaterally, rt side form stripper point pain along the upper cervical . Sens: intact to touch b/l grossly Coord: intact FNT b/l DTR: 2+ sym b/l Gait: deferred. intact per pt. Impression: 28 yo female with acute left vertebral V3 segment dissection with negative mri brain. chiropractic manipulation likely the cause for the dissection. Recommendations: pt was loaded with DAPT yesterday. continue DAPT (ASA/plavix) for at least 21 days and then should get repeat CT venogram to evaluate the vertebral artery in about 3 weeks, if normal or improved, can stop the DAPT and continue ASA 81mg only for another month and stop. avoid hypotension. i do not feel her rt side neck pain is from the left side dissection. appears to be MSK trigger point. recommend trial of baclofen 10mg po bid for muscle relaxation. avoid all neck manipulation now on, no heavy lifting. plan to watch her another 24hrs and if she does well, likely can be discharged tomorrow. plenty of IVF hydration. Follow up in neurology clinic after discharge in 1-2 months. Chart reviewed I have spent more than 50% educating patient about potential diagnosis and neurological evaluation and coordinating care with patient's treatment team. Total time spent (including chart review and coordination of care): 60 min (this includes chart review). Results & Data Vital Signs (Past 12 Hours) Vital Signs Temp Pulse Pulse Resp BP BP Pulse Ox 01/07/24 08:00 36.8 C 85 20 125/72 98 01/07/24 07:27 68 01/07/24 06:00 74 17 102/67 01/07/24 05:30 73 16 103/68 01/07/24 05:00 69 14 94/66 L 01/07/24 04:30 69 16 107/69 01/07/24 04:00 73 14 99/59 L 01/07/24 03:30 69 21 109/69 01/07/24 03:30 109/69 01/07/24 03:00 75 13 97/63 L 01/07/24 02:30 73 15 103/67 01/07/24 01:00 86 15 97/66 L 01/07/24 00:30 86 14 115/76 01/07/24 00:00 87 18 111/77 01/06/24 23:54 84 01/06/24 23:30 81 13 106/71 01/06/24 23:00 77 12 120/74 01/06/24 21:59 98 01/06/24 21:59 81 16 126/96 98 O2 Del Method 01/07/24 08:00 01/07/24 07:27 01/07/24 06:00 01/07/24 05:30 01/07/24 05:00 01/07/24 04:30 01/07/24 04:00 01/07/24 03:30 01/07/24 03:30 01/07/24 03:00 01/07/24 02:30 01/07/24 01:00 01/07/24 00:30 01/07/24 00:00 01/06/24 23:54 01/06/24 23:30 01/06/24 23:00 01/06/24 21:59 Room Air 01/06/24 21:59 Room Air PG Care Time/CCT Total # of Minutes Spent Total Time Spent with Patient: Total time spent is greater than 50% in coordination of care (as documented) at patient's floor/unit and/or counseling patient: Coding Level of Care Code 18625 IN/OBS CONSULT LVL 4,60M Diagnoses Dissection of vertebral artery I77.74
[2024-01-07] MEDS: ASPIRIN 81 MG ECTAB PO SCH (10:10)
[2024-01-07] MEDS: CLOPIDOGREL BISULFATE 75 MG TAB PO SCH (10:10)
[2024-01-07] MEDS: BACLOFEN 10 MG TAB PO SCH (10:45)
[2024-01-07] MEDS ORDERED: diazePAM 5 MG TABLET PO PRN (10:48)
[2024-01-07] MEDS ORDERED: MAG SULFATE 50% 1GM/2ML VIAL IV ONE (10:50)
[2024-01-07] MEDS: MAGNESIUM SULFATE / D5W 1 GM/100 ML BAG IV SCH (11:32)
--- NOTE | 2024-01-07 12:47 | Pharmacy Report ---
- Date of Service January 07, 2024 - Pharmacy CVA/TIA Medication Review Medications to Prevent Stroke handout has been added to the patients discharge packet. Antiplatelet(s) * Aspirin 81 mg daily for life * Plavix 75 mg daily for 21 days then stop Cholesterol * Statin not indicated for vertebral artery dissection secondary to trauma DVT Prophylaxis * SCD knee Therapeutic Anticoagulation * No history of Afib/Aflutter noted Type 2 Diabetes * Patient does not have T2DM
[2024-01-07] MEDS: DICLOFENAC SOD 1% GEL 100 GM TUBE EXT SCH (13:34)
--- NOTE | 2024-01-07 13:38 | Hospitalist Progress Note ---
Date of Service January 07, 2024 Assessment & Plan (1) Dissection of vertebral artery: Plan: (1) Vertebral artery dissection - Transient left eye scotoma on 01/04 PM, resolved on 01/05 AM - CTA of neck revealed narrowing of distal V3 L vertebral artery concerning for dissection, measures 5cm in length, narrows lumen by 75% - Transient scotoma may have been from small embolus due to dissection - Neurology in agreement and believes likely triggered by chiropractic manipulation - Continue dual antiplatelet therapy (ASA/plavix) x21 days - Repeat CT venogram in 3 weeks, if stable or improving, continue ASA 81mg only for another month (2) Musculoskeletal cervical injury - Valium 5mg PO TID PRN - Load IV magnesium sulfate 4g - Voltaren 2g with soft tissue massage TID - Tylenol 650mg PO Q4H PRN Dispo: likely discharge to home tomorrow VTE ppx: low risk, SCD FEN/GI: Regular diet Admission and Anticipated Discharge Date Admission Date: January 06, 2024 Supervising Physician Co-Signing Physician Notes I personally examined the patient and verified all schaefer points of history and exam, discussed case, and agree with decision making with Sreedhar WILKINSON ongoing neck pain. no visual loss ongoing. no other neuro deficits appreciate neurology input vitals noted nad heent nc at mmm breathing unlabored no accessory muscles good effort skin no rashes no pallor or icterus neuro no focal deficits R sided Cspine parasapinals high tone/tender/decreased ROM vertebral artery dissection - fortunately no CVA, clinically situation was c/w TIA that has since resolved. asa/plavix. BP is controlled. follow. hopefully home soon w outpt f/u Cspine neck muscle spasm - voltaren gel, valium as muscle relaxant, mag IV otherwise as above Subjective Fariha Mehta is a 28-year-old female with no significant past medical history presenting to the ER with concern after a transient left eye scotoma on 01/04 that self-resolved on 01/05 AM after chiropractic manipulation for her 10-day hx of cervical pain. She denies any vision changes since the scotoma and reports no dizziness, numbness, tingling. Her only concern is continued 7/10 cervical pain with rotation, especially worse with right side rotation compared to left. Review of Systems Review of Systems: CONSTITUTIONAL: Poor sleep. Denies changes to weight or appetite. No fever, chills, and fatigue. HEENT: No vision or hearing impairment. No headaches. Denies ringing, runny nose, and sore throats. RESPIRATORY: Denies SOB and cough. CV: Denies palpitations, edema, diaphoresis, and chest pain. GI: Denies bloating, constipation, and abdominal pain. No nausea, vomiting and diarrhea. : Denies dysuria and changes to urinary frequency. Denies melena or hematochezia. MSK: 7/10 pain at the base of the neck and skull. Denies any other muscle pains, aches, and cramps. Denies joint pains, swelling, and stiffness. SKIN: Denies rash, pruritus, and color changes. NEUROLOGICAL: Denies dizziness, syncope, seizures, numbness, and tingling. PSYCHIATRIC: Denies changes to mood or personality. Physical Exam Physical Exam: Constitutional: No acute distress. HEENT: Normocephalic and atraumatic. PERRL. EOM. Neck: Supple, trachea midline.. Lungs: Breath sounds are clear and equal bilaterally. No wheezing, rales, rhonchi or crackles. Heart: RRR. No murmurs, rubs, gallops noted. No JVD or carotid bruits. 2+ pulses bilaterally. MSK: Limited cervical ROM, more restricted rotation to the right side compared to the left side. No other muscle aches, pains, joint swelling, or tenderness noted. Neuro: Alert and oriented x 3. Speech & cognition normal. CN II-XII grossly intact. Skin: Warm and dry. No rashes, bruises, or lesions noted. Psych: Cooperative; appropriate mood and affect Results & Data Results & Data Vital Signs (Past 12 Hours) Vital Signs Temp Pulse Pulse Resp BP BP Pulse Ox 01/07/24 08:00 36.8 C 85 20 125/72 98 01/07/24 07:27 68 01/07/24 06:00 74 17 102/67 01/07/24 05:30 73 16 103/68 01/07/24 05:00 69 14 94/66 L 01/07/24 04:30 69 16 107/69 01/07/24 04:00 73 14 99/59 L 01/07/24 03:30 69 21 109/69 01/07/24 03:30 109/69 01/07/24 03:00 75 13 97/63 L 01/07/24 02:30 73 15 103/67 01/07/24 01:00 86 15 97/66 L 01/07/24 00:30 86 14 115/76 01/07/24 00:00 87 18 111/77 01/06/24 23:54 84 01/06/24 23:30 81 13 106/71 01/06/24 23:00 77 12 120/74 Laboratory Results 01/07/24 01/06/24 01/06/24 Range/Units 03:45 21:30 18:27 WBC 7.01 7.71 (4.8-10.8) K/ul RBC 4.09 L 4.44 (4.20-5.40) M/uL Hgb 11.9 L 12.9 (12.0-16.0) g/dl POC Hgb 14.3 (12.0-16.0) g/dl Hct 35.2 L 38.8 (37.0-47.0) % POC Hct 42 (37-47) % MCV 86.1 87.4 (80.0-100.0) fL MCH 29.1 29.1 (25.0-34.0) pg MCHC 33.8 33.2 (32.0-36.0) g/dL RDW Std Deviation 37.3 37.8 (36.4-46.3) fL RDW Coeff of Sondra 11.9 11.9 (11.5-14.5) % Plt Count 313 340 (130-400) K/uL MPV 8.5 L 8.5 L (9.4-12.4) fL Immature Gran % (Auto) 0.3 0.3 % Neut % (Auto) 52.3 62.5 % Lymph % (Auto) 34.1 27.5 % Newton % (Auto) 10.6 8.3 % Eos % (Auto) 2.1 1.0 % Baso % (Auto) 0.6 0.4 % Neut # (Auto) 3.67 4.82 (1.40-6.50) K/uL Lymph # (Auto) 2.39 2.12 (1.20-3.40) K/uL Newton # (Auto) 0.74 H 0.64 H (0.11-0.59) K/uL Eos # (Auto) 0.15 0.08 (0.00-0.50) K/uL Baso # (Auto) 0.04 0.03 (0.00-0.20) K/uL Immature Gran # (Auto) 0.02 0.02 (0.01-0.20) K/uL PT 11.5 (9.0-12.0) Seconds INR 1.1 (0.9-1.1) APTT 29 (21-31) Seconds PTT Ratio 1.0 POC Sodium 141 (135-144) mmol/L Sodium 140 138 (136-145) mmol/L POC Potassium 3.9 (3.3-5.0) mmol/L Potassium 3.7 3.8 (3.5-5.1) mmol/L POC Chloride 103 (101-112) mmol/L Chloride 110 H 108 H (98-107) mmol/L Carbon Dioxide 26 23 (21-32) mmol/L POC Total CO2 25 (24-31) mmol/L Anion Gap 4 7 (3-11) POC Anion Gap 18.0 (16-25) mmol/L POC BUN 9 (7-18) mg/dl BUN 10 9 (6-23) mg/dl Creatinine 0.60 0.56 L (0.6-1.2) mg/dl POC Creatinine 0.6 (0.6-1.3) mg/dl Est Cr Clr Drug Dosing 125.6 134.6 ml/min Est GFR ( Amer) 143.8 147.1 ml/min Est GFR (Non-Af Amer) 124.0 126.9 ml/min BUN/Creatinine Ratio 16.7 16.1 (10-20) Glucose 100 H 86 (70-99(Fasting)) mg/dl POC Glucose (other) 95 (70-99) mg/dl Estimat Average Glucose 111 mg/dl Hemoglobin A1c 5.5 (4.5-5.6) % Calcium 8.4 L 8.7 (8.6-10.3) mg/dl POC Ioniz Calcium Carolyn 1.21 (1.12-1.32) mmol/l Total Bilirubin 0.5 (0.2-1.0) mg/dl AST 16 (13-39) U/L ALT 15 (7-52) U/L Alkaline Phosphatase 58 (34-104) U/L Troponin I High Sens < 2.3 (0-14) pg/ml Total Protein 7.1 (6.0-8.3) gm/dl Albumin 4.1 (3.4-5.0) gm/dl Globulin 3.0 (2.5-4.0) gm/dl Albumin/Globulin Ratio 1.4 (0.9-2) Triglycerides 47 (0-150) mg/dl Cholesterol 99 (0-200) mg/dl LDL Cholesterol, Calc 49 mg/dl VLDL Cholesterol, Calc 9 (0-30) mg/dl HDL Cholesterol 41 mg/dl Cholesterol/HDL Ratio 2.4 (0-5) Lipase 24 (11-82) U/L HCG, Qual (Negative) 01/06/24 Range/Units 18:18 WBC (4.8-10.8) K/ul RBC (4.20-5.40) M/uL Hgb (12.0-16.0) g/dl POC Hgb (12.0-16.0) g/dl Hct (37.0-47.0) % POC Hct (37-47) % MCV (80.0-100.0) fL MCH (25.0-34.0) pg MCHC (32.0-36.0) g/dL RDW Std Deviation (36.4-46.3) fL RDW Coeff of Sondra (11.5-14.5) % Plt Count (130-400) K/uL MPV (9.4-12.4) fL Immature Gran % (Auto) % Neut % (Auto) % Lymph % (Auto) % Newton % (Auto) % Eos % (Auto) % Baso % (Auto) % Neut # (Auto) (1.40-6.50) K/uL Lymph # (Auto) (1.20-3.40) K/uL Newton # (Auto) (0.11-0.59) K/uL Eos # (Auto) (0.00-0.50) K/uL Baso # (Auto) (0.00-0.20) K/uL Immature Gran # (Auto) (0.01-0.20) K/uL PT (9.0-12.0) Seconds INR (0.9-1.1) APTT (21-31) Seconds PTT Ratio POC Sodium (135-144) mmol/L Sodium (136-145) mmol/L POC Potassium (3.3-5.0) mmol/L Potassium (3.5-5.1) mmol/L POC Chloride (101-112) mmol/L Chloride (98-107) mmol/L Carbon Dioxide (21-32) mmol/L POC Total CO2 (24-31) mmol/L Anion Gap (3-11) POC Anion Gap (16-25) mmol/L POC BUN (7-18) mg/dl BUN (6-23) mg/dl Creatinine (0.6-1.2) mg/dl POC Creatinine (0.6-1.3) mg/dl Est Cr Clr Drug Dosing ml/min Est GFR ( Amer) ml/min Est GFR (Non-Af Amer) ml/min BUN/Creatinine Ratio (10-20) Glucose (70-99(Fasting)) mg/dl POC Glucose (other) (70-99) mg/dl Estimat Average Glucose mg/dl Hemoglobin A1c (4.5-5.6) % Calcium (8.6-10.3) mg/dl POC Ioniz Calcium Carolyn (1.12-1.32) mmol/l Total Bilirubin (0.2-1.0) mg/dl AST (13-39) U/L ALT (7-52) U/L Alkaline Phosphatase (34-104) U/L Troponin I High Sens (0-14) pg/ml Total Protein (6.0-8.3) gm/dl Albumin (3.4-5.0) gm/dl Globulin (2.5-4.0) gm/dl Albumin/Globulin Ratio (0.9-2) Triglycerides (0-150) mg/dl Cholesterol (0-200) mg/dl LDL Cholesterol, Calc mg/dl VLDL Cholesterol, Calc (0-30) mg/dl HDL Cholesterol mg/dl Cholesterol/HDL Ratio (0-5) Lipase (11-82) U/L HCG, Qual Negative (Negative) Diagnostic Findings Cervical Spine CT 01/06/24 17:57 IMPRESSION: No acute finding of the cervical spine. Head CT 01/06/24 17:57 IMPRESSION: No acute intracranial finding. Head CTA 01/06/24 17:57 IMPRESSION: No acute finding of the arteries of the head. Neck CTA 01/06/24 17:57 CAROTID STENOSIS REFERENCE USING NASCET CRITERIA: % ICA stenosis = (1 - narrowest ICA diameter/diameter of distal cervical ICA) x 100. Mild - <50% stenosis. Moderate - 50-69% stenosis. Severe - 70-94% stenosis. Near occlusion - 95-99% stenosis. Occluded - 100% stenosis. IMPRESSION: There is abrupt narrowing of the distal V3 left vertebral artery concerning for dissection. This measures approximate 5 cm in length. This narrows the lumen by approximately 75%. Brain MRI 01/07/24 00:22 IMPRESSION: 1. Mild mucosal thickening of the right ethmoid and sphenoid sinuses. Cannot exclude acute sinusitis. 2. Otherwise, no acute finding. Resident Activity Tracking Resident Involvement: Resident Care Provided Care Provided: Adult [facility] Medicine
--- NOTE | 2024-01-07 16:34 | Billing Data ---
Date of Service January 07, 2024 Coding Level of Care Code 16042 SUB INP/OBS CARE MIN
--- NOTE | 2024-01-07 17:49 | XCELERA ---
[id number] \\[id number]
[2024-01-07] MEDS: diphenhydrAMINE 50 MG/ML VIAL IV STA (19:44)
[2024-01-07] MEDS: hydrOXYzine HCl 25 MG TAB PO STA (23:50)
[2024-01-08] MEDS: HYDROCORTISONE 2.5% CR 30 GM TUBE EXT PRN (00:05)
--- NOTE | 2024-01-08 03:36 | Communication Note ---
Date of Service: January 08, 2024 Contact by nursing staff multiple times as patient with new onset pruritic rash. Trialed topical hydrocortisone, IV benadryl, and hydroxyzine 25 mg without much improvement. Patient evaluated at bedside. Diffuse papular rash present - erythematous, raised consistent with dermatitis. No increased work of breathing. Lungs clear without wheezing. RRR no m/r/g. Patient on plavix and ASA for vertebral artery dissection. May be drug reaction to Plavix. Patient does have sensitive skin and will react to new detergents/soaps as well so etiology not entirely clear. No respiratory symptoms. Could consider PO steroids. Patient resting comfortably per nursing - would hold on further intervention for now. See attending attestation for further documentation. Resident Activity Tracking Resident Involvement: Resident Care Provided Care Provided: Adult Hospital Medicine
--- NOTE | 2024-01-08 06:22 | Electrocardiogram Report ---
Test Reason : Blood Pressure : / mmHG Vent. Rate : 081 BPM Atrial Rate : 081 BPM P-R Int : 144 ms QRS Dur : 088 ms QT Int : 368 ms P-R-T Axes : 067 029 050 degrees QTc Int : 427 ms Normal sinus rhythm with sinus arrhythmia Low voltage QRS Borderline ECG No previous ECGs available Confirmed by Wade Stanton ([id number]) on 01/08/2024 6:22:06 AM Referred By: Vivek Lewis Confirmed By:Wade Stanton
[2024-01-08 07:06] LABS: Basophils # (auto) 0.04 K/uL (0.00-0.20); Basophils % (auto) 0.6 %; Eosinophils # (auto) 0.17 K/uL (0.00-0.50); Eosinophils % (auto) 2.6 %; Hematocrit (blood only) 39.6 % (37.0-47.0); Hemoglobin 13.4 g/dl (12.0-16.0); Immature Granulocytes # (auto) 0.01 K/uL (0.01-0.20); Immature Granulocytes % (auto) 0.2 %; Lymphocytes # (auto) 1.66 K/uL (1.20-3.40); Lymphocytes % (auto) 25.6 %; Mean Corpuscular Hemoglobin 29.3 pg (25.0-34.0); Mean Corpuscular Hgb Conc 33.8 g/dL (32.0-36.0); Mean Corpuscular Volume 86.5 fL (80.0-100.0); Mean Platelet Volume 8.6 fL (9.4-12.4); Monocytes # (auto) 0.67 K/uL (0.11-0.59); Monocytes % (auto) 10.3 %; Neutrophils # (auto) 3.94 K/uL (1.40-6.50); Neutrophils % (auto) 60.7 %; Platelet Count 322 K/uL (130-400); RDW Coefficient of Variation 11.9 % (11.5-14.5); RDW Standard Deviation 37.8 fL (36.4-46.3); Red Blood Count 4.58 M/uL (4.20-5.40); White Blood Count 6.49 K/ul (4.8-10.8)
[2024-01-08 07:49] LABS: BUN Creatinine Ratio 19.6 (10-20); Calcium 8.7 mg/dl (8.6-10.3); Creatinine Clr Calc Pharmacy 134.6 ml/min; Est GFR (African American) 147.1 ml/min; Est GFR (Non-African American) 126.9 ml/min; Potassium 3.9 mmol/L (3.5-5.1)
[2024-01-08] MEDS: hydrOXYzine HCl 25 MG TAB PO PRN (09:41)
--- NOTE | 2024-01-08 10:03 | Neurology Progress Note ---
Date of Service January 08, 2024 Assessment & Plan (1) Dissection of vertebral artery: Admission and Anticipated Discharge Date Admission Date: January 06, 2024 Subjective pt feeling much better. neck pain much improved. vitals stable. Results & Data Vital Signs (Past 12 Hours) Vital Signs Temp Pulse Pulse Resp BP Pulse Ox O2 Del Method 01/08/24 08:00 Room Air 01/08/24 07:45 36.6 C 93 H 16 111/75 98 Room Air 01/08/24 07:00 73 01/08/24 04:30 36.8 C 78 18 102/64 97 Room Air 01/07/24 23:28 36.6 C 77 18 106/66 97 Room Air Exam (Neuro) Physical Exam: Neuro: Mental: AOx4, fluent speech, normal comprehension, no apraxia, no L/R confusion, no neglect CN: PERRL, Full EOM, symmetric face, Motor: No abnormal movements Coord: intact Impression: 28 yo female with left vertebral dissection, doing well. Recommendations: continue DAPT as recommended. pt can f/u with me in neurology clinic as pt desires once discharged, in about 1 month or so. avoid heavy lifting and quick head turning. ok for discharge today. Chart reviewed I have spent more than 50% educating patient about potential diagnosis and neuro logical evaluation and coordinating care with patient's treatment team. Total time spent (including chart review and coordination of care): 30 min (this includes chart review). PG Care Time/CCT Total # of Minutes Spent Total Time Spent with Patient: Total time spent is greater than 50% in coordination of care (as documented) at patient's floor/unit and/or counseling patient: Coding Level of Care Code 69839 SUB INP/OBS CARE 3/50MIN Diagnoses Dissection of vertebral artery I77.74
--- NOTE | 2024-01-08 14:11 | Discharge Summary ---
Date of Service January 08, 2024 Admission HPI Per Admitting Provider Fariha is a 28 year old female with no significant past medical history coming in for transient L eye scotoma. Patient states that December 24 she felt a pop at her neck. She subsequently went to go see a chiropractor for evaluation on the and had been given exercises to do at home. She did not improve and so Thursday the she went back and had an adjustment, with additional adjustment Thursday. Thursday night around 10PM she had developed a central visual field defect of black [place]/spot which persisted no matter what direction she looked. She states that she went to bed and then woke up around 6:30AM today with the spot resolved and able to see as she normally does without deficit. She went back to the chiropractor however they told her to come to the ER due to concern for possible stroke or dissection. She denies any other issues, no fevers, chills, shortness of breath, muscle weakness, numbness or tingling, hearing changes, photosensitivity, phonosensitivity. She had a URI in November with a cough for a few weeks but did not have any nausea/vomiting or trauma to the area. When the pop occurred initially she was bending down to pepper picker her toddler. No past history of any hypermobility from patient, denies past history of cardiac issues. Denies family history of hypermobility or EDS. In the ER CBC, CMP, lipase, HCG negative. CTA of the neck showed abrupt narrowing of distal V3 left vertebral artery concerning for dissection, measures approximate 5cm in length, narrows the lumen by approximately 75%. Admission Exam Per Admitting Provider Constitutional: WD/WN, vitals as above Eyes: PERRL, conjunctivae normal, anicteric sclerae ENMT: external ear and nose normal, oropharynx normal Respiratory: normal respiratory effort, lungs clear to auscultation Gastrointestinal (Abdomen): normal bowel sounds, soft, nontender, no hepatosplenomegaly Musculoskeletal: no cyanosis or clubbing, extremities motor strength 5/5 [place] screening without positive findings. Skin: no rashes, warm and dry Neurologic: PERRL, EOMI, accommodation nl, no face palsy, no dysarthria CN's II-XI intact bilaterally Psychiatric: A+Ox3, euthymic affect Principal Diagnosis vertebral artery dissection Discharge Exam Constitutional WD/WN, vitals as above Neck normal visual inspection and trachea midline Respiratory normal respiratory effort, lungs clear to auscultation Cardiovascular RRR, no murmur, no edema Skin diffuse, erythematous, pinpoint raised lesions spread across arms, abdomen, back, and legs Neurologic no focal deficits, EOMI Psychiatric A+Ox3, euthymic affect Discharge Data Allergies Allergy/AdvReac Type Severity Reaction Status Date / Time No Known Allergies Allergy Verified 01/06/24 21:37 Consultations 01/06/24 21:10 ED Decision to Admit Stat 01/07/24 00:22 Consult Neurology Routine Ordered Studies 01/06/24 17:57 CT cervical spine wo con Stat CT head/brain wo con Stat CTA head w con [CT angio head w con] Stat CTA neck with con [CT angio neck with con] Stat 01/07/24 00:22 MR brain wo con Routine Hospital Course (1) Dissection of vertebral artery: (1) Vertebral artery dissection - Transient left eye scotoma on 312 PM, resolved on 3 AM - CTA of neck revealed narrowing of distal V3 L vertebral artery concerning for dissection, measures 5cm in length, narrows lumen by 75% - Transient scotoma may have been from small embolus due to dissection that resulted in transient central retinal artery occlusion - Neurology in agreement and believes likely triggered by chiropractic manipulation - Continue dual antiplatelet therapy (ASA/plavix) x21 days - Follow up with neurology, repeat CT venogram in 3 weeks, if stable or im proving, continue ASA 81mg only for another month (2) Paraspinal Muscle spasm - Continue Voltaren gel (3) Diffuse Rash: - suspect this is most likely contact dermatitis-like reaction to detergent/hospital sheets. Expect that this will self-resolve. Very low suspicion for drug rash, though if not improving, could be medication related. Total Time Total Time Spent Total Time Spent (In Minutes): less than 30 Discharge Plan Discharge Items Patient Disposition: Home - Self-Care Reason For Visit: VERTEBRAL ARTERY DISSECTION Discharge Diagnosis: vertebral artery dissection, left Activity: As commented below Activity Comment: gradual progression of activity as tolerated Non-emergency contact: Primary Care Provider and Neurologist Call non-emergency contact if: you have any medication questions, your symptoms worsen and your pain is not controlled Follow-up/Referrals: Fariha Schwartz CRNP [Primary Care Provider] - 01/19/24 2:00 pm Alex Dumont MD [Physician] - (PLEASE CALL TO SCHEDULE A FOLLOW-UP APPOINTMENT.) Diet: Regular Addtl Attending Provider Instructions: You were admitted to the hospital due to a vertebral artery dissection. Upon discharge, please continue to take both Aspirin and Plavix once daily for 3 weeks. Please follow up with neurology for follow up imaging. If things are stable/improving, Dr. Dumont will likely have you take the aspirin alone for about another month. A discharge summary will be sent to your primary care physician to ensure continuity of care. Please bring this discharge summary with you to your next office appointment so that your provider can review it at that time. Medications: Your medication list has been reviewed and reconciled upon discharge to ensure accuracy and continuity of care. An updated list of all your medications is included with your hospital discharge paperwork. Please review this list closely and make note of any changes to your medications. New Medications: Aspirin: Please take 1 tab once daily Plavix: Please take 1 tab once daily Follow up appointments: - Make a follow up appointment with your PCP within the next week. It is very important that you follow up with them shortly after discharge from the hospital. - Keep all of your follow up appointments as already scheduled. If you cannot make an appointment, notify your provider. CONTACT YOUR PRIMARY CARE PROVIDER if you experience any of the following: - Difficulty following your treatment plan - Difficulty taking any of your medications CALL 911 OR GO TO THE EMERGENCY DEPARTMENT if you experience any of the following: - Sudden, severe abdominal pain or nausea/vomiting - Severe chest pain or chest pain that radiates to your jaw or arm - Sudden, severe shortness of breath or difficulty breathing Pending Studies at Discharge: No Stand-Alone Forms: [facility], Smoking Cessation, Medications to Prevent Stroke Medications and DC Order Prescriptions: New clopidogrel 75 mg Tablet 75 mg PO QAM 30 Days Qty: 30 0RF aspirin 81 mg Tablet,Delayed Release (Dr/Ec) 81 mg PO QAM 30 Days Qty: 30 0RF Discharge Orders: Discharge Order (Routine); Ordered 01/08/24 Ordered By: Jairo Adams/Other Patient Handouts: Anatomy of a Normal Spine Admission Data Admit Date/Time: 01/06/24 22:31 Attending Provider: Miguel Jacobo Admit Provider: Christiano Hickey Primary Care Provider: Fariha Schwartz Other Providers: Miri Mari; Alex Dumont Other Interventions: Discharge Summary Assessment (RN) Last Done: 01/08/24 13:07 Supervising Physician Co-Signing Physician Notes I personally examined the patient and verified all schaefer points of history and exam, discussed case, and agree with decision making with S Mathieu MS2 neck pain doing better. No new neurodeficits. Feels up to going home. Requested that I discussed the case with her chiropractor so that he was updated on how well she is doingcalled and updated. vitals noted nad heent nc at mmm breathing unlabored no accessory muscles good effort skin no rashes no pallor or icterus neuro no focal deficits Better ra nge of motion of her neck. vertebral artery dissection - fortunately no CVA, clinically situation was c/w TIA that has since resolved. asa/plavix. BP is controlled. Stable for discharge, home with outpatient follow-up Cspine neck muscle spasm - improving, continue Voltaren gel at home otherwise as above, PCP and neurology follow-up Resident Activity Tracking Resident Involvement: Resident Care Provided Care Provided: Adult Hospital Medicine
--- NOTE | 2024-01-08 18:29 | Billing Data ---
Date of Service January 08, 2024 Coding Level of Care Code 06913 IN/OBS DISCH 30 MIN/LESS
== END 2024-01-08 13:35 | disposition home or self-care (01) | DRG 301 ==
LOC: ED 17:48 → EDINP 22:31 → SUATTDRO 22:31 → 2N 01-07 15:53

== ENCOUNTER 2024-12-21 05:25 | Inpatient (IN) ==
--- NOTE | 2024-12-08 11:56 | Anesthesiology Consultation ---
Date of Service December 08, 2024 Assessment & Plan (1) Encounter for pre-operative examination: Chart Review Chart Review: Acceptable Risk for Surgery and Patient NOT seen in Pre Admission Testing Infectious Disease screening: Per PAT nursing assessment on 12/08/24, No known infectious disease contacts in past 10 days or current infectious disease symptoms. No recent travel outside the country. Pt did note diarrhea and nausea 12/04-12/06/24 and was given Zofran by OB. OB monitoring sx. Sx resolved as of 12/08/24. History Surgery Operation Date: 12/21/24 07:30 Proposed Procedures p Repeat Section - Brennan Mejias MD Height/Weight Height: 5 ft 5 in Weight: 71.214 kg Allergies Allergy/AdvReac Type Severity Reaction Status Date / Time No Known Allergies Allergy Verified 12/08/24 11:06 Medications Home Medications Medication Instructions Recorded Confirmed Last Taken aspirin 81 mg tablet,delayed 81 mg PO QAM 12/08/24 12/08/24 Unknown release docusate sodium 100 mg capsule 100 mg PO QAM 12/08/24 12/08/24 Unknown (Colace) iron,carbonyl 65 mg-vitamin C 125 1 tab PO QAM 12/08/24 12/08/24 Unknown mg tablet,delayed release (Vitron-C) vitamin B12 1,000 mcg-folic acid 1,000 tab sublingual QAM 12/08/24 12/08/24 Unknown 400 mcg sublingual tablet Past Medical History Medical History (Updated 12/08/24 @ 12:19 by Sierra Amor PA-C) Anemia Fe+ defic; had iron infusions with previous ; currently on oral iron; recent Hgb WNL (12/07/24) Dissection, vertebral artery (12/2023) L vertebral artery dissection 01/06/24 after chiropractic manipulation; seen [facility] and started on DAPT; f/u with Neuro 02/01/24 and plavix d/c. had f/u Neck CTA 02/16/24 which showed Significant improvement in the left vertebral artery dissection since CTA of January 06, 2024. Minimal residual narrowing and irregularity of the left vertebral artery; pt remains on ASA 81mg History of anesthesia reaction with previous c/s (emergency) had epidural during labor ; pt reports doesn't know if it was effective during labor for pain relief/could still feel pain and wasn't sure if anything was added to it for c/s , pt could feel c/s "very traumatic" - second was "much better" Scotoma involving central area in visual field of left eye (12/2023) transient; r/t dissection of L vertebral artery (seen [facility]) 01/06/24 Past Family History Family History Grandfather (Paternal) Cardiac disorder Myocardial infarction Uncle Coronary heart disease Hypercholesteremia Father Hypercholesteremia Hypertension Mother Hypertension Thyroid disease Multiple gestation Grandmother (Maternal) Malignant neoplasm of cervix Sister Gestational diabetes Past Surgical History Surgical History (Updated 12/08/24 @ 11:56 by Sierra Amor PA-C) History of low transverse section Hx of section 07/16/22: SAB: L3-4 x 1 attempt; tolerated well. 02/18/20 (unplanned; see note, re: 'hx of anesthesia reaction') Social History Smoking Status: Never smoker Do You Dip or Chew Tobacco: No Hx Alcohol Use: No Hx Substance Use: No substance use type: does not use Testing Laboratory Results 12/07/24: WBC: 3.81(L) H/H: 12.7/38.9 PLATELETS: 211 Electrocardiogram Date: 01/06/24 NSR with sinus arrhythmia, rate: 81bpm low voltage QRS Echocardiogram Date: 01/07/24 EF: 60-65% LV Function: normal RWMA: + none Valvular Disease: + no significant valvular disease Other Testing Neck CTA 02/16/24: 1. Significant improvement in the left vertebral artery dissection since CTA of January 06, 2024. Minimal residual narrowing and irregularity of the left vertebral artery. 2. Otherwise, normal CTA of the neck.
[2024-12-21 06:08] LABS: Hematocrit (blood only) 37.1 % (37.0-47.0); Hemoglobin 12.3 g/dl (12.0-16.0); Mean Corpuscular Hemoglobin 28.9 pg (25.0-34.0); Mean Corpuscular Hgb Conc 33.2 g/dL (32.0-36.0); Mean Corpuscular Volume 87.1 fL (80.0-100.0); Mean Platelet Volume 8.9 fL (9.4-12.4); Platelet Count 203 K/uL (130-400); RDW Coefficient of Variation 14.2 % (11.5-14.5); RDW Standard Deviation 45.4 fL (36.4-46.3); Red Blood Count 4.26 M/uL (4.20-5.40); White Blood Count 6.24 K/ul (4.8-10.8)
[2024-12-21] MEDS: ACETAMINOPHEN 500 MG TAB PO SCH (06:24)
[2024-12-21] MEDS ORDERED: LACTATED RINGER'S 1,000 ML IV SCH ×2 (06:30→09:33)
[2024-12-21] MEDS: LACTATED RINGER'S 1,000 ML IV SCH (07:07)
[2024-12-21] MEDS ORDERED: PHENYLEPHRINE HCL 25 MG/250 ML NSS IV ONE (07:33)
[2024-12-21] MEDS: CITRIC ACID/SODIUM CITRATE 15 ML UDC PO SCH (07:33)
[2024-12-21] MEDS: ceFAZolin 2000MG 2,000 MG/15 ML SYR IV SCH (07:33)
[2024-12-21] MEDS ORDERED: MoRPHine SULFATE PF 1 MG/ML 10 ML AMP/VIAL ONE (07:36)
--- NOTE | 2024-12-21 07:45 | History & Physical Report ---
Date of Service December 21, 2024 Assessment & Plan (1) S/P repeat low transverse : Plan: Elective repeat Admission and Anticipated Discharge Date Admission Date: December 21, 2024 History of Present Illness Chief Complaint: repeat at term Primary Care Provider: JAROD Benavides 29 F P2002 at 39.2 weeks preasents for elective repeat . Allergies Allergy/AdvReac Type Severity Reaction Status Date / Time No Known Allergies Allergy Verified 12/21/24 07:42 Home Medications Medication Instructions Recorded Confirmed Type aspirin 81 mg tablet,delayed 81 mg PO QAM 12/08/24 12/21/24 History release docusate sodium 100 mg capsule 100 mg PO QAM 12/08/24 12/21/24 History (Colace) iron,carbonyl 65 mg-vitamin C 125 1 tab PO QAM 12/08/24 12/21/24 History mg tablet,delayed release (Vitron-C) vitamin B12 1,000 mcg-folic acid 1,000 tab sublingual QAM 12/08/24 12/21/24 History 400 mcg sublingual tablet Patient History Medical History Single umbilical artery Dissection, vertebral artery (12/2023) L vertebral artery dissection 01/06/24 after chiropractic manipulation; seen [facility] and started on DAPT; f/u with Neuro 02/01/24 and plavix d/c. had f/u Neck CTA 02/16/24 which showed Significant improvement in the left vertebral artery dissection since CTA of January 06, 2024. Minimal residual narrowing and irregularity of the left vertebral artery; pt remains on ASA 81mg Scotoma involving central area in visual field of left eye (12/2023) transient; r/t dissection of L vertebral artery (seen [facility]) 01/06/24 Anemia Fe+ defic; had iron infusions with previous ; currently on oral iron; recent Hgb WNL (12/07/24) History of anesthesia reaction with previous c/s (emergency) had epidural during labor ; pt reports doesn't know if it was effective during labor for pain relief/could still feel pain and wasn't sure if anything was added to it for c/s , pt could feel c/s "very traumatic" - second was "much better" Surgical History Hx of section 07/16/22: SAB: L3-4 x 1 attempt; tolerated well. 02/18/20 (unplanned; see note, re: 'hx of anesthesia reaction') History of low transverse section Family History Grandfather (Paternal) Cardiac disorder Myocardial infarction Uncle Coronary heart disease Hypercholesteremia Father Hypercholesteremia Hypertension Mother Multiple gestation Hypertension Thyroid disease Grandmother (Maternal) Malignant neoplasm of cervix Sister Gestational diabetes Daughter Diabetes type 1 Social History Smoking Status: Never smoker Second Hand Exposure: No; Do You Dip or Chew Tobacco: No; Tobacco Cessation Education Requested by Patient: No Hx Alcohol Use: No Hx Substance Use: No Preferred Language: Malawian Communication Ability: Effective Visual Impairment: No Limitations Hearing Ability: Normal Mule Developer Required: No Beliefs That Will Affect Care: None marital status: marital status details: Harris Mehta (25) [phone] Current Living Situation: Spouse current occupational status: employed 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 @ [employer] Other Information That Helps Us Care for You: No Feels Safe at Home: Yes Safety Concerns: Feels Safe At This Time Diet: regular caffeine: No Dental Care, Regularly: Yes Physical Activity Frequency: 1-2 Times per Week Seatbelt Use: always Sunscreen Use: Yes Assistive Devices: Glasses 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 History carmela Review of Systems All systems reviewed & are unremarkable except as noted in HPI & below Physical Exam Constitutional: WD/WN, vitals as above Eyes: PERRL, conjunctivae normal, anicteric sclerae Respiratory: normal respiratory effort, lungs clear to auscultation Cardiovascular: RRR, no murmur, no edema Gastrointestinal (Abdomen): Inspection/Auscultation: abdomen normal to inspection Musculoskeletal: Extremities: extremities normal to inspection Skin: no rashes, warm and dry Neurologic: patellar DTR's 2+ bilat, sensation intact Psychiatric: A+Ox3, euthymic affect Genitourinary: OB Exam Monitor Tracing: + external FHT monitor used, + external uterine monitor used, + category I and + normal FHT variability Results & Data Vital Signs (Past 12 Hours) Vital Signs Temp Pulse Resp BP 12/21/24 07:03 36.4 C L 85 20 99/62 L 12/21/24 05:44 36.8 C 18 12/21/24 05:35 81 111/63 Laboratory Results 12/21/24 05:36 WBC 6.24 RBC 4.26 Hgb 12.3 Hct 37.1 MCV 87.1 MCH 28.9 MCHC 33.2 RDW Std Deviation 45.4 RDW Coeff of Sondra 14.2 Plt Count 203 MPV 8.9 L Treponema pallidum Ab Negative Blood Type O Positive Antibody Screen NEGATIVE
[2024-12-21] MEDS ORDERED: OXYTOCIN 10 UNITS/ML VIAL ONE ×3 (07:59→08:18)
--- OUTSIDE RECORDS SUMMARY | 2024-12-21 09:14 | External Medical Summary ---
Author Name Unknown Address Unknown Organization [id number]:[facility] [id number] [place] [address] Laboratory Report Ordering Provider Test Date Status PATRICE CABRERA 12/07/2024 09:13:15 Final Observation Date Value Abnormality Reference (Units ) Status WBC, Total 12/07/2024 09:13:15 3.81 Below low normal 4. 00-10.80 (K/uL) Final RBC 12/07/2024 09:13:15 4.34 3.85-5.15 (M/uL) Final Hemoglobin 12/07/2024 09:13:15 12.7 12.0-15.3 (g/dL) Final Anemia reflex testing trigge rs on a HGB < 12.0 for Females and HGB < 13.0 for Males in accordance with the WHO Anemia Guidelines
Anemia reflex testing triggers on a HGB < 12.0 for Females and HGB < 13.0 for Males in accordance with the WHO Anemia Guidelines HCT 12/07/2024 09:13:15 38.9 36.0-45.2 (%) Final MCV 12/07/2024 09:13:15 89.6 81.5-97.5 (fL) Final MCH 12/07/2024 09:13:15 29.3 27.0-34.0 (pg) Final MCHC 12/07/2024 09:13:15 32.6 32.0-36.0 (g/dL) Final RDW 12/07/2024 09:13:15 14.9 11.5-15.5 (%) Final Platelets 12/07/2024 09:13:15 211 140-400 (K /uL) Final MPV 12/07/2024 09:13:15 8.7 6.6-11.1 ( fL) Final Performing Location [facility] [address] [place] [address]
--- OUTSIDE RECORDS SUMMARY | 2024-12-21 09:14 | External Medical Summary | Summary of Care ---
Author Name Unknown Organization [facility] Address [address] [place] [address] Phone [phone] Care Team Providers Care Quick Sketch Artist Name Role Phone Unavailable Primary Care Provider Unavailabl e Reason for Visit * Reason Comments Return Visit Non Stress Test Encounter Details Date Type Department Care Team (Late st Contact Info) Description 12/13/2024 10:30 AM EST Office Visit Gynecology/Obstetric s Frederick Patiño [address] [place] [phone] Angeles Neff PA-C [address] [place] [address] [place] Non Stress Tests Earnestine [address] [place] [address] High-risk in third trimester*; Single umbilical artery, maternal, antepartum; History of section; Vertebral artery dissection (HCC); Antepartum anemia complicating ; Low maternal serum vitamin B12; NST (non-stress test) nonreactive Allergies No known active allergiesdocumented as of this encounter (statuses as of 12/13/2024) Medications 28-0.8 MG Oral Tablet Take by mouth. Active Aspirin 81 MG Oral Capsule Take by mouth. Active Iron-Vitamin C 65-125 MG Oral Tablet (Vitron C)Indications:Antep artum anemia complicating Take 1 Tablet by mouth in the morning and 1 Tablet before bedtime. 60 Tablet 3 4 Active Vitamin B-12 1000 MCG Oral Tablet (Cyanocobalamin)Ind ications:Low maternal serum vitamin B12 Take 1 Tablet by mouth in the morning. 30 Tablet 3 4 Active Ondansetron 4 MG Oral Tablet Disintegrating (Zofran)Indications :Nausea Place 1 Tablet on tongue every 8 hours as needed for Nausea. dissolve on tongue. 20 Tablet 5 Active documented as of this encounter (statuses as of 12/13/2024) Active Problems Problem Noted Date Diagnosed Date Antepartum anemia complicating 024 Low maternal serum vitamin B12 10/06/2024 Single umbilical artery, maternal, antepartum Assessment & Plan (08/10/2024 9:58 AM EDT): I reviewed the ultrasound with her. The anatomy that was visualized appears unremarkable, with the exception of a two-vessel umbilical cord. The biometry is appropriate for the gestational age and the amniotic fluid volume is subjectively normal. We discussed the diagnosis of a single umbilical artery. RECOMMENDATIONS: Reviewed that an isolated two vessel cord is considered a normal variant of and occurs in up to 1% of pregnancies. In the absence of any other abnormalities noted on ultrasound, there is not an increased incidence of chromosome abnormalities beyond the baseline age-related risk. There is a slightly increased incidence, however, of growth restriction and stillbirth. Recommend Maternal Medicine ultrasound for growth at 28-32 weeks. Recommend weekly NSTs at 36 weeks. As required by [place] Act 112, the Patient Test Result Information Act, I have discussed with the patient the significant findings from the diagnostic imaging service performed today. They have expressed their understanding and signed the acknowledgement form. High-risk 05/18/2024 Vertebral artery dissection 05/18/2024 Overview (05/25/2024): December 2023. S/p Neurology with [facility]. Pt on blood thinners for about 3 months. Then advised to stop. Pt states did not have stroke. S/p MFM recommendations: Recommendations -Patient was advised to commence low dose Aspirin for the rest of -Avoid any manipulation of the neck area -If there are any new visual symptoms, worsening headaches or any motor disturbances, patient must seek immediate care -No special interventions are required at the time of delivery -Delivery timing should be dictated by the usual obstetric factors. Assessment & Plan (05/24/2024 1:44 PM EDT): Considerations -Patient with a history of vertebral artery dissection have generally done well in -Prophylactic antiplatelet therapy has benefit in reducing any increase in background risk for cerebrovascular event -Delivery plans should be based on usual obstetric considerations Recommendations -Patient was advised to commence low dose Aspirin for the rest of -Avoid any manipulation of the neck area -If there are any new visual symptoms, worsening headaches or any motor disturbances, patient must seek immediate care -No special interventions are required at the time of delivery -Delivery timing should be dictated by the usual obstetric factors. History of section 12/12/2021 Assessment & Plan (05/24/2024 1:40 PM EDT): -Patient with two prior delivery -Repeat CD planned for this -Continue with routine OB care -Delivery planning to be dictated by primary OB Estimated Date of Delivery Comme nts Yes 12/26/2024 Based on last me nstrual period of 03/21/2024 (Exact Date) documented as of this encounter (statuses as of 12/13/2024) Resolved Problems Problem Noted Date Diagnosed Date Resolved Date 9 weeks gestation of 05/24/2024 09/16/2024 Assessment & Plan (05/24/2024 1:45 PM EDT): -Continue with vitamins -For anatomy scan at 20 weeks -Continue with routine OB care Antepartum anemia complicating 05/07/2022 09/16/2024 Overview (05/07/2022): hgb 10.3 at 29 weeks, referral to blood mgmt History of shoulder dystocia in prior 01/08/2022 07/24/2022 Overview (06/04/2022): Unclear if patient had a shoulder dystocia in her first delivery. She reports that she pushed for 1 hour 45 minutes. She states she was and the "shoulders were stuck" and she had a delivery. Date: 02/22/2020. Dr. Sinclair. Baby weight: 7 lb 5 oz. Addendum: reviewed above note with pt. There was no . ' head' could be seen but there was no . She had a suspected CPD and was offered a c/sec Supervision of high-risk pre gnancy, unspecified trimester 12/12/2021 07/24/2022 documented as of this encounter (statuses as of 12/13/2024) Immunizations Name Administration Dates Next Due Seasonal Influenza, PF, 6 M & above, IM , (FluLaval or Fluzone) 12/12/2021 TDAP (age 10 and older)(Boostrix) 05/07/2022 TDAP, Age 7 and older, IM (Adacel) 10/05/2024 documented as of this encounter Social History Tobacco Use Types Packs/Day Years Used Date Smoking Tobacco: Never Smokeless Tobacco: Never Alcohol Use Standard Drinks/Week Comments Not Currently 0 (1 standard drink = 0.6 oz pur e alcohol) Hunger Vital Sign Answer Date Recorded Within the past 12 months, y ou worried that your food would run out before you got the money to buy more. Never true 05/05/20 24 Within the past 12 months, t he food you bought just didn't last and you didn't have money to get more. Never true 05/05/2024 [place] Depression Scale Answer Date Recorded [place] Depression Scale Total 2 05/18/2024 The thought of harming myself has occurred to me . Never 05/18/2024 Childcare Answer Date Recorded Do you feel overwhelmed with taking care of a child, family member or friend? No 05/05/2024 Does your family need help f inding childcare? (Household - for ages 0-17 years) Not on file 05/05/2024 Clothing Answer Date Recorded Have you been unable to get clothing when it was really needed? No 05/05/2024 Is your family able to get c lothes or diapers when needed? (Household - for ages 0-17 years) Not on file 05/05/2024 Personal Safety Answer Date Recorded Do you feel unsafe or have concerns for your saf ety? No 05/05/2024 Do you have concerns for you r family's safety? (Household - for ages 0-17 years) Not on file 05/05/2024 Utilities Answer Date Recorded Do you have trouble paying y our heating, water, or electric bill? No 05/05/2024 Is your family able to pay t he heat, water, or electric bill? (Household - for ages 0-17 years) Not on file 05/05/2024 Does your family have access to good internet? (Household - for ages 0-17 years) Not on file 05/05/2024 Employment Status Answer Date Recorded Are you unemployed or without regular income? No 05/05/2024 Does the household have a re lar source of income? (Household - for ages 0-17 years) Not on file 05/05/2024 Social Connections Answer Date Recorded How often do you feel lonely or isolated from th ose around you? Never 05/05/2024 Financial Resource Strain Answer Date R ecorded Do you have any trouble payi ng for your medications, or do you think you might in the future? No 05/05/2024 Does your family have troubl e paying for medicine? (Household - for ages 0-17 years) Not on file 05/05/2024 Transportation Needs Answer Date Record ed Do you have trouble getting a ride to medical visits or work? (Adult - for ages 18 years and over) Not on file 05/05/2024 Does your family have a hard time getting a ride to doctors visits? (Household - for ages 0-17 years) Not on file 05/05/2024 Has lack of transportation k ept you from medical appointments, meetings, work, or from getting things needed for daily living? Check all that apply. No 05/05/2024 Do you (or your family) have trouble finding or paying for a ride (transportation)? (Household - for ages 0-17 years) Not on file 05/05/2024 Housing Stability Answer Date Recorded Do you currently live in a s helter or have no steady place to sleep at night? No 05/05/2024 Do you think you are at risk of becoming homeless? (Adult - for ages 18 years and over) Not on file 05/05/2024 Does your family worry about paying for your home or becoming homeless? (Household - for ages 0-17 years) Not on file 0 05/05/2024 Are you homeless or worried that you might be in the future? No 05/05/2024 Are you (or your family) abdiel eless or worried that you might be in the future? (Household - for ages 0-17 years) Not on file Food Insecurity Answer Date Recorded Do you need food for this week? No 05/05/2024 Are you able to get enough f ood for your family? (Household - for ages 0-17 years) Not on file 05/05/2024 Does your family need food t his week? (Household - for ages 0-17 years) Not on file 05/05/2024 Do you always have enough fo od for your family? (Household - for ages 0-17 years) Not on file 05/05/2024 Food Insecurity Answer Date Recorded Within the past 12 months, y ou worried that your food would run out before you got the money to buy more. Never true 05/05/20 24 Within the past 12 months, t he food you bought just didn't last and you didn't have money to get more. Never true 05/05/2024 Do you need food for this week? No 05/05/2024 Estimated Date of Delivery Comme nts Yes 12/26/2024 Based on last me nstrual period of 03/21/2024 (Exact Date) Sex and Gender Information Value Date Recorded Sex Assigned at Female 05/07/2022 8:34 AM EDT Legal Sex Female 4:17 PM EDT Gender Identity Female 05/07/2022 8:34 AM EDT Sexual Orientation Straight 05/07/2022 8: 34 AM EDT documented as of this encounter Last Filed Vital Signs Vital Sign Reading Time Taken Comments Blood Pressure 96/68 12/13/2024 10:14 AM EST Pulse - - Temperature - - Respiratory Rate - - Oxygen Saturation - - Inhaled Oxygen Concentration - - Weight - - Height 165.1 cm (5' 5") 12/13/2024 10:14 AM EST Body Mass Index - - documented in this encounter Progress Notes * Angeles Neff PA-C - 12/13/2024 10:26 AM EST Fariha Mehta is a 29 year old female here for her routine OB appointment/NST at 38w1d Her Estimated Date of Delivery: 12/26/24 REVIEW OF SYSTEMS She affirms movement. Denies vaginal bleeding, LOF, headaches, vision changes, chest pain, RUQ pain. + irregular contractions, not regular or timeable. 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 Name of traffic enumerator: Ny Monk LPN. ASSESSMENT assessment with Non-stress Test completed on 12/13/2024 at 38w1d weeks gestation for indication of 2 vessel umbilical cord heart baseline: 130s bpm Variability: Moderate Decelerations: absent Accelerations: absent Contractions: Present. 3 contractions noted, 4-5 minutes apart. 2 contractions noted 2-3 minutes apart. Irregular. Patient not reporting pain associated. Patient feeling an increase in movement around the time of contractions. NST start time: 1019 NST stop time: 1103 NST strip reviewed, interpreted, and approved by OB provider, Angeles Neff PA-C. NST strip stored in clinic storage file Nonreactive NST. Sent for BPP. BPP 06/02. As patient is scheduled for ERCS next week, contacted on-call provider Dr. Man regarding contractions, NST, and cervical exam. As contractions are irregular and non-painful, recommended patient's d/c to home. ASSESSMENT/PLAN High-risk in third trimester (Primary) Single umbilical artery, maternal, antepartum History of section - ERCS scheduled 12/23 Vertebral artery dissection (HCC) Antepartum anemia complicating Low maternal serum vitamin B12 Supervision of - strict labor precautions and kick counts reviewed Offered CARLOS/NST in 1 week prior to ERCS. Patient declines. Will reach Angeles Neff PA-C 12/13/2024 documented in this encounter Nursing Notes * Ny Olson LPN - 12/13/2024 10:31 AM EST 38w1d NST/CARLOS documented in this encounter Plan of Treatment Upcoming Encounters Date Type Department Care Team (Late st Contact Info) Description 12/28/2024 10:30 AM EST Office Visit Gynecology/Obstetrics Frederick Patiño [address] [place] [id number] [place], JAROD Lundy [address] [place] [phone] Health Maintenance Due Date Last Done Comments Depression Screening 2007 COVID-19 Vaccine (2023- season) 2024 Influenza Vaccine (FLU shot) (#1) 2024 12/12/2021, 09/05/2019, 09/05/2019 Pap Smear 05/18/2027 05/18/2024 DTap/Tdap Vaccines (10 - Td or Tdap) 10/05/2034 10/05/2024, 05/07/2022, 11/30/2019, Additional history exists Hepatitis B Vaccine Completed 1995, 1995, 1995 MENINGOCOCCAL (MENACTRA/MENVEO) Completed 05/30/2013 HPV (Gardasil) Vaccine Aged Out No lo nger eligible based on patient's age to complete this topic Meningitis B Vaccine (Bexsero/Trumemba) Aged Out No longer eligible based on patient's age to complete this topic Pneumococcal Vaccine: Pediatrics (0 to 5 Years) and At-Risk Patients (6 to 18 Years and 19+ Years) Aged Out No longer eligib le based on patient's age to complete this topic documented as of this encounter Goals Goal Patient Goal Type Associated Problems Recent Progress Patient-Stated? Author Reminders Care Plan OB Reminders No Mychart, Provider documented as of this encounter Medical Devices Not on filedocumented as of this encounter Results * US BPP W/O NON-STRESS TEST (12/13/2024 11:31 AM EST) Anatomical Region Laterality Modality Abdomen, Body Ultrasound 12/13/2024 11:4 0 AM EST Impressions 12/13/2024 11:45 AM EST IMPRESSION: 1. BPP score: 8 of 8. 2. Normal ELDER. 3. Vertex presentation. I have personally reviewed this examination and agree with the resident/fellow physician's interpretation. Narrative 12/13/2024 11:45 AM EST EXAM: US BPP W/O NON-STRESS TEST - 12/13/2024 11:31 am HISTORY: Nonreactive NST TECHNIQUE: Sonographic examination performed. COMPARISON: Obstetric ultrasound 05/18/2024. FINDINGS: GENERAL : [place] Presentation: Vertex heart rate: 146 bpm ELDER: 15.5 cm which is between the 50th and 95th percentiles for this stage of . BIOPHYSICAL PROFILE breathing movement: 2 Gross body movement: 2 tone: 2 Qualitative AFV: 2 Total BPP score: 8 of 8. Procedure Note Justin Hollingsworth MD - 12/13/2024 EXAM: US BPP W/O NON-STRESS TEST - 12/13/2024 11:31 am HISTORY: Nonreactive NST TECHNIQUE: Sonographic examination performed. COMPARISON: Obstetric ultrasound 05/18/2024. FINDINGS: GENERAL : [place] Presentation: Vertex heart rate: 146 bpm ELDER: 15.5 cm which is between the 50th and 95th percentiles for this stageof . BIOPHYSICAL PROFILE breathing movement: 2 Gross body movement: 2 tone: 2 Qualitative AFV: 2 Total BPP score: 8 of 8. IMPRESSION IMPRESSION: 1. BPP score: 8 of 8. 2. Normal ELDER. 3. Vertex presentation. I have personally reviewed this examination and agree with the resident/fellow physician's interpretation. us Angeles Neff PA-C RAD ULTRASOUND F inal Result documented in this encounter Visit Diagnoses Diagnosis Vertebral artery dissection (HCC)- Primary Dissection of vertebral artery History of section Other postprocedural status 9 weeks gestation of state, incidental Encounter for supervision of normal first in first trimester Supervision of normal first Vertebral artery dissection (HCC)- Primary Dissection of vertebral artery History of section Other postprocedural status Single umbilical artery, maternal, antepartum Other umbilical cord complications during labor and delivery, antepartum Unspecified abnormal findings on screening of mother High-risk in third trimester- Primary Single umbilical artery, maternal, antepartum Other umbilical cord complications during labor and delivery, antepartum History of section Other postprocedural status Vertebral artery dissection (HCC) Dissection of vertebral artery Antepartum anemia complicating Anemia, antepartum Low maternal serum vitamin B12 NST (non-stress test) nonreactive Abnormal findings on screening NST (non-stress test) nonreactive Abnormal findings on screening documented in this encounter Additional Health Concerns Active Problems Noted Date Diagnosed Date OB Reminders 10/05/2024 documented as of this encounter
--- OUTSIDE RECORDS SUMMARY | 2024-12-21 09:14 | External Medical Summary | Summary of Care ---
Author Name Unknown Organization [facility] Address [address] [place] [address] Phone [phone] Care Team Providers Care Plastic Press Molder Name Role Phone Unavailable Primary Care Provider Unavailabl e Reason for Visit * Reason Comments Outpatient Testing Encounter Details Date Type Department Care Team (Late st Contact Info) Description 12/07/2024 9:50 AM EST Laboratory Laboratory, [facility] [address] [place] [phone] [facility] [address] [place] [address] Antepartum anemia complicating Allergies No known active allergiesdocumented as of this encounter (statuses as of 12/07/2024) Medications 28-0.8 MG Oral Tablet Take by [...] as of this encounter (statuses as of 12/07/2024) Active Problems Problem Noted Date Diagnosed Date [...] Overview (05/25/2024): December 2023. S/p Neurology with [facility]. Pt on blood thinners for about 3 [...] as of this encounter (statuses as of 12/07/2024) Resolved Problems Problem Noted Date Diagnosed Date [...] as of this encounter (statuses as of 12/07/2024) Immunizations Name Administration Dates Next Due Seasonal [...] money to get more. Never true 05/05/2024 [place] Depression Scale Answer Date Recorded [place] Depression Scale Total 2 05/18/2024 The thought [...] 05/05/2024 Does the household have a re gular source of income? (Household - for ages [...] AM EDT documented as of this encounter Plan of Treatment Upcoming Encounters Date Type Department Care Team (Late st Contact Info) Description 12/13/2024 10:30 AM EST Office Visit Gynecology/Obstetrics Frederick Patiño [address] [place] [phone] Angeles Neff PA-C [address] [place] [address] [place] Non Stress Tests Earnestine [address] [place] [phone] 12/28/2024 10:30 AM EST Office Visit Gynecology/Obstetrics Frederick Patiño [address] [place] [address] Dee Dee [place] CRNP [address] [place] [address] Pending Results Name Type Priority Associated Diagnoses Date /Time CBC WITH WBC DIFFERENTIAL AND ANEMIA REFLEX WORKUP Lab Routine Antepartum anemia complicating 12/07/2024 9:13 AM EST ANEMIA REFLEX CHEMISTRY HOLD Lab Routine Antepartum anemia complicating 12/07/2024 9:13 AM EST Health Maintenance Due Date Last Done Comments Depression Screening 2007 COVID-19 Vaccine ( season) 2024 Influenza Vaccine (FLU shot) (#1) [...] Not on filedocumented as of this encounter Procedures Procedure Name Priority Date/Time Associated Diagnosis Comments ANEMIA CBC Routine 12/07/2024 9:13 AM EST Antepartum anemia complicating DIFFERENTIAL, AUTOMATED Routine 12/07/2024 9:13 AM EST Antepartum anemia complicating DIFFERENTIAL, TECHNOLOGIST REVIEW Routine 12/07/2024 9:13 AM EST Antepartum anemia complicating documented in this encounter Results * (ABNORMAL) DIFFERENTIAL, TECHNOLOGIST REVIEW (12/07/2024 9:13 AM EST) WBC 3.81(L) 4.00 - 10.80 K/uL 12/07/2024 10:07 AM EST [facility] Neutrophils % 62.0 40.0 - 75.0 % 12/07/2024 10:07 AM EST [facility] Lymphocytes % 22.0 18.0 - 42.0 % 12/07/2024 10:07 AM EST [facility] Monocytes % 14.0(H) 1.0 - 11.0 % 12/07/2024 10:07 AM EST [facility] Metamyelocytes % 2.0(H) <=0.0 % 12/07/19 10:07 AM EST [facility] Absolute Neutrophils 2.36 1.80 - 7.70 K/uL 12/07/2024 10:07 AM EST [facility] Absolute Lymphocytes 0.84(L) 1.00 - 4.80 K/uL 12/07/2024 10:07 AM EST [facility] Absolute Monocytes 0.53 0.00 - 1.10 K/uL 12/07/2024 10:07 AM EST [facility] Absolute Metamyelocytes 0.08(H) <=0.00 K/uL 12/07/2024 10:07 AM EST [facility] nRBCs 12/07/2024 10:07 AM EST [facility] Reactive Lymphocytes Present(A ) None Seen 12/07/2024 10:07 AM EST [facility] Blood Venous blood specimen / Unknown Venipuncture / Unknown 12/07/2024 9:13 AM EST 12/07/2024 9:13 AM EST us Dee Dee Overton Backer JAORD LAB BLOOD ORDERABLE S Final Result [facility] [facility], [place] [address] * DIFFERENTIAL, AUTOMATED (12/07/2024 9:13 AM EST) Blood Venous blood specimen / Unknown Venipuncture / Unknown 12/07/2024 9:13 AM EST 12/07/2024 9:13 AM EST Dee Dee Overton Backer COPY HOLDER LAB BLOOD ORDERABLE S Final Result [facility] [address] [place] [address] * (ABNORMAL) ANEMIA CBC (12/07/2024 9:13 AM EST) WBC 3.81(L) 4.00 - 10.80 K/uL 12/07/2024 10:07 AM EST [facility] RBC 4.34 3.85 - 5.15 M/uL 12/07/2024 10:07 AM EST [facility]10 HGB 12.7 12.0 - 15.3 g/dL 12/07/2024 10:07 AM EST [facility] 57[facility]10 Comment: Anemia reflex testing triggers on a HGB < 12.0 for Females and HGB < 13.0 for Males in accordance with the WHO Anemia Guidelines Anemia reflex testing triggers on a HGB < 12.0 for Females and HGB < 13.0 for Males in accordance with the WHO Anemia Guidelines HCT 38.9 36.0 - 45.2 % 12/07/2024 10:07 AM EST [facility] 57[facility]10 MCV 89.6 81.5 - 97.5 fL 12/07/2024 10:07 AM EST [facility] [place] 57-10 MCH 29.3 27.0 - 34.0 pg 12/07/2024 10:07 AM EST [facility] 57-10 MCHC 32.6 32.0 - 36.0 g/dL 12/07/2024 10:07 AM EST [facility] 57[facility]10 RDW 14.9 11.5 - 15.5 % 12/07/2024 10:07 AM EST [facility] 57-10 PLT 211 140 - 400 K/uL 12/07/2024 10:07 AM EST [facility] [place] 57[facility]10 MPV 8.7 6.6 - 11.1 fL 12/07/2024 10:07 AM EST [facility]10 Blood Venous blood specimen / Unknown Venipuncture / Unknown 12/07/2024 9:13 AM EST 12/07/2024 9:13 AM EST Dee Dee Overton Backer JAROD LAB BLOOD ORDERABLE S Final Result [facility] [address] [facility] [place] [id number] documented in this encounter Visit Diagnoses Diagnosis [...] Unspecified abnormal findings on screening of mother Antepartum anemia complicating Anemia, antepartum documented in this encounter Additional Health Concerns Active Problems Noted Date Diagnosed Date OB Reminders 10/05/2024 documented as of this encounter
--- OUTSIDE RECORDS SUMMARY | 2024-12-21 09:14 | External Medical Summary ---
Author Name Unknown Address Unknown Organization [id number]:LABORATORY [facility] [address] [place] [address] Laboratory Report Ordering Provider Test Date Status PATRICE CABRERA 12/07/2024 09:13:15 Final Observation Date Value Abnormality Reference (Units ) Status SYNC LEUKOCYTES IN BLOOD BY AUTOMATED COUNT 12/07/2024 09:13:15 3.81 Below low normal 4.00-10.80 (K/uL) Final Neutrophils/100 leukocytes in Blood by Manual count 12/07/2024 09:13:15 62.0 40.0-75.0 (%) Final Lymphocytes/100 leukocytes in Blood by Manual count 12/07/2024 09:13:15 22.0 18.0-42.0 (%) Final Monocytes/100 leukocytes in Blood by Manual count 12/07/2024 09:13:15 14.0 Above high normal 1.0-11.0 (%) Final Metamyelocytes/100 leukocytes in Blood by Manual count 12/07/2024 09:13:15 2.0 Above high normal <=0.0 (%) Final Neutrophils [#/volume] in Blood by Manual count 12/07/2024 09:13:15 2.36 1.80-7.70 (K/uL) Final Lymphocytes [#/volume] in Blood by Manual count 12/07/2024 09:13:15 0.84 Below low normal 1.00-4.80 (K/uL) Final Monocytes [#/volume] in Blood by Manual count 12/07/2024 09:13:15 0.53 0.00-1.10 (K/uL) Final Metamyelocytes [#/volume] in Blood by Manual count 12/07/2024 09:13:15 0.08 Above high normal <=0.00 (K/uL) Final Nucleated erythrocytes/100 leukocytes [Ratio] in Blood by Automated count 12/07/2024 09:13:15 Final Variant lymphocytes [Presence] in Blood by Light microscopy 12/07/2024 09:13:15 Present Abnormal None Seen Final Performing Location [facility]ATORY [facility] [address] [place] [address]
--- OUTSIDE RECORDS SUMMARY | 2024-12-21 09:14 | External Medical Summary | Summary of Care ---
Author Name Unknown Organization [facility] Address [address] [place] [address] Phone [phone] Care Team Providers Care Neurology Hospitalist Name Role Phone Unavailable Primary Care Provider Unavailabl e Reason for Visit * Reason Comments Return Visit Non Stress Test Encounter Details Date Type Department Care Team (Late st Contact Info) Description 12/07/2024 8:15 AM EST Office Visit Gynecology/Obstetric s Frederick Patiño [address] [facility] [place] [address] Dee Dee [place] [facility] [address] [facility] [address] High-risk in third trimester*; History of section; Vertebral artery dissection (HCC); Single umbilical artery, maternal, antepartum; Antepartum anemia complicating ; Low maternal serum vitamin B12; Nausea Allergies No known active allergiesdocumented as of [...] Overview (05/25/2024): December 2023. S/p Neurology with [facility]. Pt on blood thinners for about 3 [...] money to get more. Never true 05/05/2024 [place] Depression Scale Answer Date Recorded [place] Depression Scale Total 2 05/18/2024 The thought [...] Sign Reading Time Taken Comments Blood Pressure 108/62 12/07/2024 8:27 AM EST Pulse - - Temperature - - Respiratory Rate - - Oxygen Saturation - - Inhaled Oxygen Concentration - - Weight 71.2 kg (157 lb) 12/07/2024 8:27 AM EST Height - - Body Mass Index 26.13 11/30/2024 11:04 AM EST documented in this encounter Progress Notes * Dee Dee [place] CRNP - 12/07/2024 8:27 AM EST 37w2d Baby moving well. No regular ctx or leaking/bleeding. Some nausea, getting over GI bug. Rx sent for Zofran. Advised small frequent meals. Scheduled for repeat C/S. Continue weekly NSTs with visits. Needs to recheck CBC, ordered. JAROD Casillas ASSESSMENT assessment with Non-stress Test completed on 12/07/2024 at 37.2 weeks gestation for indicationof 2 vessel umbilical cord heart baseline: 125 bpm Variability: Moderate Decelerations: absent Accelerations: present Contractions: Present - irregular NST start time: 0829 NST stop time: 0900 NST strip reviewed, interpreted, and approved by OB provider, JAROD Casillas . NST strip stored in clinic storage file documented in this encounter Plan of Treatment Upcoming Encounters Date Type Department Care Team (Late st Contact Info) Description 12/13/2024 10:30 AM EST Office Visit Gynecology/Obstetrics Frdeerick Patiño [address] [place] [address] [place] Neff PA-C [address] [place] [address] Patiño, Non Stress Tests [facility] [address] [place] [address] 12/28/2024 10:30 AM EST Office Visit Gynecology/Obstetrics Frederick Patiño [address] [place] [address] Dee Dee [place] CRNP [address] [place] [address] Pending Results Name Type Priority Associated Diagnoses Date /Time CBC WITH WBC DIFFERENTIAL AND ANEMIA REFLEX WORKUP Lab Routine Antepartum anemia complicating 12/07/2024 9:13 AM EST Scheduled Orders Name Type Priority Associated Diagnoses Orde r Schedule CBC WITH WBC DIFFERENTIAL AND ANEMIA REFLEX WORKUP Lab Routine Antepartum anemia complicating Expected: 12/07/2024 (Approximate), Expires: 12/07/2025 Health Maintenance Due Date Last Done Comments [...] Not on filedocumented as of this encounter Visit Diagnoses Diagnosis Vertebral artery [...] of mother High-risk in third trimester- Primary History of section Other postprocedural status Vertebral artery dissection (HCC) Dissection of vertebral artery Single umbilical artery, maternal, antepartum Other umbilical cord complications during labor and delivery, antepartum Antepartum anemia complicating Anemia, antepartum Low maternal serum vitamin B12 Nausea Nausea alone documented in this encounter Additional Health Concerns Active Problems Noted Date Diagnosed Date OB Reminders 10/05/2024 documented as of this encounter
--- OUTSIDE RECORDS SUMMARY | 2024-12-21 09:15 | External Medical Summary | Summary of Care ---
Author Name Unknown Organization [facility] Address [address] [place] [address] Phone [phone] Care Team Providers Care Materials Inspector Name Role Phone Unavailable Primary Care Provider Unavailabl e Encounter Details Date Type Department Care Team (Late st Contact Info) Description 11/25/2024 Telephone Gynecology/Obstetrics [facility] [address] [place] [address] Keisha Vega MD [address] [place] [address] Allergies No known active allergiesdocumented as of this encounter (statuses as of 11/25/2024) Medications 28-0.8 MG Oral Tablet Take by mouth. Active Aspirin 81 MG Oral Capsule Take by mouth. Active Iron-Vitamin C 65-125 MG Oral Tablet (Vitron C)Indications:Ant epartum anemia complicating Take 1 Tablet by mouth in the morning and 1 Tablet before bedtime. 60 Tablet 3 4 Active Vitamin B-12 1000 MCG Oral Tablet (Cyanocobalamin)I ndications:Low maternal serum vitamin B12 Take 1 Tablet by mouth in the morning. 30 Tablet 3 4 Active documented as of this encounter (statuses as of 11/25/2024) Active Problems Problem Noted Date Diagnosed Date [...] Overview (05/25/2024): December 2023. S/p Neurology with [facility]. Pt on blood thinners for about [...] as of this encounter (statuses as of 11/25/2024) Resolved Problems Problem Noted Date Diagnosed Date [...] as of this encounter (statuses as of 11/25/2024) Immunizations Name Administration Dates Next Due Seasonal [...] money to get more. Never true 05/05/2024 [place] Depression Scale Answer Date Recorded [place] Depression Scale Total 2 05/18/2024 The thought [...] ages 0-17 years) Not on file 05/05/2024 Estimated Date of Delivery Comme nts Yes 12/26/2024 Based on last me nstrual period of 03/21/2024 (Exact Date) Sex and Gender Information Value Date Recorded Sex Assigned at Female 05/07/2022 8:34 AM EDT Legal Sex Female 4:17 PM EDT Gender Identity Female 05/07/2022 8:34 AM EDT Sexual Orientation Straight 05/07/2022 8: 34 AM EDT documented as of this encounter Miscellaneous Notes * Telephone Encounter - Wilda Quinones RN - 11/25/2024 4:01 PM EST Patient is 35w4d calling in states that she is having headache, body aches and chills for 24 hours.Patient reports no fever when she takes her temperature. Patient denies Visual changes, new swelling, RUQ pain. She reports + FM, no vaginal bleeding, leaking or contractions. Has not checked her Bpsat home, not able to. Normal Bps in so far. Patient asking how much tylenol she can take,currently taking regular strength tylenol and not helping BASURTO. I advised that she could try extra strength tylenol next dosing time, should not exceed 1,000mg in 4 hours or 3,000mg in 24 hours. Patient is trying to stay hydrated. I advised she may want to consider going to urgent care for flu/covid testing due to body aches/chills. Please review/advise any additional recommendations. Advised to mahesh with changes. documented in this encounter Plan of Treatment Upcoming Encounters Date Type Department Care Team (Late st Contact Info) Description 11/30/2024 11:00 AM EST Office Visit Gynecology/Obstetrics Frederick Patiño [address] [place] [address] Frederick Loya MD [address] [place] [address] Yina Patiño Stress Tests Earnestine [address] [place] [address] 12/28/2024 10:30 AM EST Office Visit Gynecology/Obstetrics Frederick Patiño [address] [place] [address] Backer, Dee DeeJAROD Sampson [address] [place] [address] Health Maintenance Due Date Last Done Comments [...] Author Reminders Care Plan OB Reminders No Madhu Provider documented as of this encounter Medical Devices Not on filedocumented as of this encounter Additional Health Concerns Active Problems Noted Date Diagnosed Date OB Reminders 10/05/2024 documented as of this encounter
--- OUTSIDE RECORDS SUMMARY | 2024-12-21 09:15 | External Medical Summary ---
Author Name Unknown Address Unknown Organization [id number]:LABORATORY [facility] [address] [place] [address] Laboratory Report Ordering Provider Test Date Status PATRICE CABRERA 10/05/2024 10:26:49 Final Observation Date Value Abnormality Reference (Units ) Status Creatinine 10/05/2024 10:26:49 0.4 Below low normal 0.5-1.0 (mg/dL) Final Glomerular filtration rate/1.73 sq M.predicted [Volume Rate/Area] in Serum, Plasma or Blood by Creatinine-based formula (CKD-EPI) 10/05/2024 10:26:49 >90 >=60 (mL/min) Final eGFR is calculated based on the CKD-EPI 2020 equation. Performing Location LABORATORY [facility] - [address] [place] [address]
--- OUTSIDE RECORDS SUMMARY | 2024-12-21 09:15 | External Medical Summary | Summary of Care ---
Author Name Unknown Organization [facility] Address [address] [place] [address] Phone [phone] Care Team Providers Care Mycologist Name Role Phone Unavailable Primary Care Provider Unavailabl e Reason for Visit * Reason Comments Outpatient Testing Encounter Details Date Type Department Care Team (Late st Contact Info) Description 10/05/2024 9:30 AM EST Laboratory Laboratory, [facility] [address] [place] [phone] [facility] [address] [place] [address] High-risk in second trimester Allergies No known active allergiesdocumented as of this encounter (statuses as of 10/05/2024) Medications 28-0.8 MG Oral Tablet Take by mouth. Active Aspirin 81 MG Oral Capsule Take by mouth. Active documented as of this encounter (statuses as of 10/05/2024) Active Problems Problem Noted Date Diagnosed Date Single umbilical artery, maternal, antepartum Assessment & [...] Overview (05/25/2024): December 2023. S/p Neurology with [facility]. Pt on blood thinners for [...] as of this encounter (statuses as of 10/05/2024) Resolved Problems Problem Noted Date Diagnosed Date [...] as of this encounter (statuses as of 10/05/2024) Immunizations Name Administration Dates Next Due Seasonal [...] money to get more. Never true 05/05/2024 [place] Depression Scale Answer Date Recorded [place] Depression Scale Total 2 05/18/2024 The thought [...] Care Team (Late st Contact Info) Description 10/27/2024 11:45 AM EST Imaging Maternal Medicine Imaging, Earnestine Patiño [address] [place] [phone] 10/27/2024 1:00 PM EST [facility] [address] [place] [address] Frederick Loya MD [address] [place] [address] Pending Results Name Type Priority Associated Diagnoses Date /Time 50-G GESTATIONAL GLUCOSE, 1 HOUR Lab Routine High-risk in second trimester 10/05/2024 10:26 AM EST CBC WITH WBC DIFFERENTIAL AND ANEMIA REFLEX WORKUP Lab Routine High-risk in second trimester 10/05/2024 10:26 AM EST SYPHILIS ANTIBODY SCREEN WITH REFLEX TO RPR Lab Routine High-risk in second trimester 10/05/2024 10:26 AM EST ANEMIA CBC Lab Routine High-risk in second trimester 10/05/2024 10:26 AM EST DIFFERENTIAL, AUTOMATED Lab Routine High-risk in second trimester 10/05/2024 10:26 AM EST ANEMIA REFLEX CHEMISTRY HOLD Lab Routine High-risk in second trimester 10/05/2024 10:26 AM EST SYPHILIS ANTIBODY SCREEN Lab Routine High-risk in second trimester 10/05/2024 10:26 AM EST Health Maintenance Due Date Last [...] 5 Years) and At-Risk Patients (6 to 64 Years) Aged Out No longer eligible based on [...] findings on screening of mother High-risk in second trimester documented in this encounter Additional Health Concerns Active Problems Noted Date Diagnosed Date OB Reminders 10/05/2024 documented as of this encounter
--- OUTSIDE RECORDS SUMMARY | 2024-12-21 09:15 | External Medical Summary ---
Author Name Unknown Address Unknown Organization [id number]:LABORATORY [facility] [place] - [address] [facility] [place] [address] Laboratory Report Ordering Provider Test Date Status PATRICE CABRERA 10/05/2024 10:26:49 Final Observation Date Value Abnormality Reference (Units ) Status Treponema pallidum Ab [Presence] in Serum by Immunoassay 10/05/2024 10:26:49 Nonreactive Nonreactive Final No serologic evidence of syp hilis. No additional testing clinicially indicated at this time. Consider repeat testing in 2-4 weeks if acute or primary syphilis is suspected. Performing Location LABORATORY [facility] [place] - [address] [facility] [place] [address]
--- OUTSIDE RECORDS SUMMARY | 2024-12-21 09:15 | External Medical Summary | Summary of Care ---
Author Name Unknown Organization [facility] Address [address] [place] [address] Phone [phone] Care Team Providers Care Lumber Cutter Name Role Phone Unavailable Primary Care Provider Unavailabl e Reason for Visit * Reason Comments Return Visit Encounter Details Date Type Department Care Team (Late st Contact Info) Description 09/16/2024 11:30 AM EST Office Visit Gynecology/Obstetric s Frederick Patiño [address] [place] [address] Dee Dee [place] CRNP [address] [facility] [place] [address] High-risk in second trimester*; History of section; Vertebral artery dissection (HCC); Single umbilical artery, maternal, antepartum Allergies No known active allergiesdocumented as of this encounter (statuses as of 09/16/2024) Medications 28-0.8 MG Oral Tablet Take by mouth. Active Aspirin 81 MG Oral Capsule Take by mouth. Active documented as of this encounter (statuses as of 09/16/2024) Active Problems Problem Noted Date Diagnosed Date [...] Overview (05/25/2024): December 2023. S/p [facility]. Pt on blood thinners for about [...] as of this encounter (statuses as of 09/16/2024) Resolved Problems Problem Noted Date Diagnosed Date [...] as of this encounter (statuses as of 09/16/2024) Immunizations Name Administration Dates Next Due Seasonal Influenza, PF, 6 M & above, IM , (FluLaval or Fluzone) 12/12/2021 TDAP (age 10 and older)(Boostrix) 05/07/2022 documented as of this encounter Social History [...] money to get more. Never true 05/05/2024 [place] Depression Scale Answer Date Recorded [place] Depression Scale Total 2 05/18/2024 The thought [...] Sign Reading Time Taken Comments Blood Pressure 98/60 09/16/2024 11:33 AM EST Pulse - - Temperature - - Respiratory Rate - - Oxygen Saturation - - Inhaled Oxygen Concentration - - Weight 68.9 kg (152 lb) 09/16/2024 11:33 AM EST Height - - Body Mass Index 25.29 08/19/2024 9:09 AM EDT documented in this encounter Progress Notes * Dee Dee [place] CRNP - 09/16/2024 11:31 AM EST 25w4d Doing well, + movement. No leaking/bleeding or cramping. Had 1 instance of difficulty catchingher breath; advised to monitor and seek care if recurrent, or accompanied by other symptoms. Following with MFM. 3 week return with labs. JAROD Casillas documented in this encounter Plan of Treatment Upcoming Encounters Date Type Department Care Team (Late st Contact Info) Description 10/05/2024 9:30 AM EST [facility] [address] [place] [phone] PatiñoBranden corea [address] [place] [address] 10/05/2024 9:45 AM EST Office Visit Gynecology/Obstetrics Frederick Baileys [address] [place] [address] Nuha Naik CRNP [address] [address] 10/27/2024 11:45 AM EST Imaging Maternal Medicine Imaging, Earnestine Patiño [address] [place] [phone] Scheduled Orders Name Type Priority Associated Diagnoses Orde r Schedule 50-G GESTATIONAL GLUCOSE, 1 HOUR Lab Routine High-risk in second trimester Expected: 10/16/2024 (Approximate), Expires: 09/16/2025 CBC WITH WBC DIFFERENTIAL AND ANEMIA REFLEX WORKUP Lab Routine High-risk in second trimester Expected: 10/16/2024 (Approximate), Expires: 09/16/2025 SYPHILIS ANTIBODY SCREEN WITH REFLEX TO RPR Lab Routine High-risk in second trimester Expected: 10/16/2024 (Approximate), Expires: 09/16/2025 Health Maintenance Due Date Last Done Comments Depression Screening 2007 COVID-19 Vaccine ( season) 2024 Influenza Vaccine (FLU shot) (#1) 2024 12/12/2021, 09/05/2019, 09/05/2019 Pap Smear 05/18/2027 05/18/2024 DTap/Tdap Vaccines (9 - Td or Tdap) 05/07/2032 05/07/2022, 11/30/2019, 05/01/2010, Additional history exists Hepatitis B Vaccine Completed 1995, 1995, 1995 MENINGOCOCCAL (MENACTRA/MENVEO) Completed 05/30/2013 HPV (Gardasil) Vaccine Aged Out No lo nger eligible based on patient's age to complete this topic Pneumococcal Vaccine: Pediatrics (0 to 5 Years) and At-Risk Patients (6 to 64 Years) Aged Out No longer eligible based on patient's age to complete this topic documented as of this encounter Medical Devices [...] on screening of mother High-risk in second trimester- Primary History of section Other postprocedural status Vertebral artery dissection (HCC) Dissection of vertebral artery Single umbilical artery, maternal, antepartum Other umbilical cord complications during labor and delivery, antepartum documented in this encounter
--- OUTSIDE RECORDS SUMMARY | 2024-12-21 09:15 | External Medical Summary ---
Author Name Unknown Address Unknown Organization K01:LABORATORY [facility] [place] - [address] [facility] [address] Laboratory Report Ordering Provider Test Date Status PATRICE CABRERA 10/05/2024 10:26:49 Final Observation Date Value Abnormality Reference (Units ) Status Ferritin 10/05/2024 10:26:49 8 Below low normal 13- 150 (ng/mL) Final Performing Location [facility] - [address] [facility] [address]
--- OUTSIDE RECORDS SUMMARY | 2024-12-21 09:15 | External Medical Summary ---
Author Name Unknown Address Unknown Organization K01:LABORATORY [facility] [place] - [address] [place] [address] Laboratory Report Ordering Provider Test Date Status PATRICE CABRERA 10/05/2024 10:26:49 Final Observation Date Value Abnormality Reference (Units ) Status Iron 10/05/2024 10:26:49 37 33-151 (ug/dL) Final Iron-binding capacity 10/05/2024 10:26:49 504 Above high normal 250-425 (ug/dL) Final Transferrin Sat % 10/05/2024 10:26:49 7 Below low normal 15-55 (%) Final Performing Location LABORATORY [facility] [place] - [address] [place] [address]
--- OUTSIDE RECORDS SUMMARY | 2024-12-21 09:15 | External Medical Summary ---
Author Name Unknown Address Unknown Organization K01:[facility] [address] [facility] [address] Laboratory Report Ordering Provider Test Date Status JYOTI CABRERARUTHY 10/05/2024 10:26:49 Final Observation Date Value Abnormality Reference (Units ) Status TSH 10/05/2024 10:26:49 0.30 0.27-4.20 (uIU/mL) Final Performing Location LABORATORY [facility] - [address] [facility] [address]
--- OUTSIDE RECORDS SUMMARY | 2024-12-21 09:15 | External Medical Summary ---
Author Name Unknown Address Unknown Organization K01:LABORATORY [facility] [place] - [address] [facility] [address] Laboratory Report Ordering Provider Test Date Status PATRICE CABRERA 10/05/2024 10:26:49 Final Observation Date Value Abnormality Reference (Units ) Status Folic Acid 10/05/2024 10:26:49 10.1 >4.5 (ng/ mL) Final Performing Location LABORATORY [facility] - [address] [facility] [address]
--- OUTSIDE RECORDS SUMMARY | 2024-12-21 09:15 | External Medical Summary | Summary of Care ---
Author Name Unknown Organization [facility] Address [address] [place] [place] [address] Phone [phone] Care Team Providers Care Boatwright Name Role Phone Unavailable Primary Care Provider Unavailabl e Encounter Details Date Type Department Care Team (Late st Contact Info) Description 11/25/2024 Telephone [facility] Gynecology and Obstetrics [address] [place] [phone] Keisha Vega MD [address] [place] [address] Allergies No known active allergiesdocumented as of this encounter (statuses as of 12/01/2024) Medications 28-0.8 MG Oral Tablet Take by [...] as of this encounter (statuses as of 12/01/2024) Active Problems Problem Noted Date Diagnosed Date [...] December 2023. S/p Neurology with [facility]. Pt on blood thinners for about [...] as of this encounter (statuses as of 12/01/2024) Resolved Problems Problem Noted Date Diagnosed Date [...] as of this encounter (statuses as of 12/01/2024) Immunizations Name Administration Dates Next Due Seasonal [...] money to get more. Never true 05/05/2024 [place] Depression Scale Answer Date Recorded [place] Depression Scale Total 2 05/18/2024 The thought [...] encounter Miscellaneous Notes * Telephone Encounter - Keisha Vega MD - 11/25/2024 6:07 PM EST Yes, Covid test can be done in near by urgent care. Increase PO fluids, extra strength tylenol or chanelle seltzer for flu can help. This may be related to flu as well. documented in this encounter Plan of Treatment Upcoming Encounters Date Type Department Care Team (Late st Contact Info) Description 12/28/2024 10:30 AM EST Office Visit Gynecology/Obstetrics [facility] [address] [place] [address] BackerDee Dee CRNP [address] [place] [address] Health Maintenance Due Date Last Done Comments [...]
--- OUTSIDE RECORDS SUMMARY | 2024-12-21 09:15 | External Medical Summary ---
Author Name Unknown Address Unknown Organization [id number]:[facility] [place] - [address] [place] [address] [facility] [address] Laboratory Report Ordering Provider Test Date Status RICKBACKER 10/05/2024 10:26:49 Final Observation Date Value Abnormality Reference (Units ) Status WBC, Total 10/05/2024 10:26:49 6.60 4.00-10.8 0 (K/uL) Final RBC 10/05/2024 10:26:49 3.70 3.85-5.15 (M/uL) Final Hemoglobin 10/05/2024 10:26:49 11.1 Below low normal 12 .0-15.3 (g/dL) Final Anemia reflex testing trigge rs on a HGB < 12.0 for Females and HGB < 13.0 for Males in accordance with the WHO Anemia Guidelines
Anemia reflex testing triggers on a HGB < 12.0 for Females and HGB < 13.0 for Males in accordance with the WHO Anemia Guidelines HCT 10/05/2024 10:26:49 34.6 Below low normal 36. 0-45.2 (%) Final MCV 10/05/2024 10:26:49 93.5 81.5-97.5 (fL) Final MCH 10/05/2024 10:26:49 30.0 27.0-34.0 (pg) Final MCHC 10/05/2024 10:26:49 32.1 32.0-36.0 (g/dL) Final RDW 10/05/2024 10:26:49 12.3 11.5-15.5 (%) Final Platelets 10/05/2024 10:26:49 228 140-400 (K /uL) Final MPV 10/05/2024 10:26:49 9.2 6.6-11.1 ( fL) Final Nucleated erythrocytes/100 leukocytes [Ratio] in Blood by Automated count 10/05/2024 10:26:49 0 <=0 (/100 WBCs) Final Performing Location [facility] [place] - [address] [facility] [address]
--- OUTSIDE RECORDS SUMMARY | 2024-12-21 09:15 | External Medical Summary | Summary of Care ---
Author Name Unknown Organization [facility] Address [address] [place] [address] Phone [phone] Care Team Providers Care Technical Account Executive Name Role Phone Unavailable Primary Care Provider Unavailabl e Encounter Details Date Type Department Care Team (Late st Contact Info) Description 10/27/2024 11:45 AM EST Office Visit Fiscal Specialist Obstetrics Maternal [facility], [address] [address] Kenzie Waggoner, DO [address] [place] [address] Single umbilical artery, maternal, antepartum*; Ultrasound for screening for growth restriction; 31 weeks gestation of Allergies No known active allergiesdocumented as of this encounter (statuses as of 10/27/2024) Medications 28-0.8 MG Oral Tablet Take by [...] as of this encounter (statuses as of 10/27/2024) Active Problems Problem Noted Date Diagnosed Date [...] Overview (05/25/2024): December 2023. S/p Neurology with [facility]. Pt on blood thinners for about [...] as of this encounter (statuses as of 10/27/2024) Resolved Problems Problem Noted Date Diagnosed Date [...] as of this encounter (statuses as of 10/27/2024) Immunizations Name Administration Dates Next Due Seasonal [...] money to buy more. Never true 05/05/20 Within the past 12 months, t he food you bought just didn't last and you didn't have money to get more. Never true 05/05/2024 [place] Depression Scale Answer Date Recorded [place] Depression Scale Total 2 05/18/2024 The thought [...] AM EDT documented as of this encounter Progress Notes * Kenzie Waggoner DO - 10/27/2024 12:05 PM EST Fariha presented today at 31w3d for an ultrasound for the following indications: Single umbilical artery, maternal, antepartum Ultrasound for screening for growth restriction 31 weeks gestation of Ultrasound summary: Patient presented at 31w 3d for growth assessment. Normal growth with EFW 1908 g at 61%ile. Normal ELDER at 15.5 cm. Cephalic presentation. I reviewed the ultrasound images. Fariha was given the opportunity to meet with me if she had any questions. Please refer to the ultrasound report for additional details about today's ultrasound examination. RECOMMENDATIONS: Follow up with MFM for ultrasound as clinically indicated.. Weekly NSTs at 36 weeks. See prior formal MFM consultation note. Thank you for allowing us to participate in the care of this patient. Please call with any questions. Kenzie Waggoner DO 10/27/2024 12:14 PM documented in this encounter Plan of Treatment Upcoming Encounters Date Type Department Care Team (Late st Contact Info) Description 11/16/2024 9:30 AM EST [facility] [address] [place] [address] Nuha Naik CRNP [address] [place] [address] 11/30/2024 4:15 PM EST Office Visit Gynecology/Obstetrics [facility] [address] [place] [address] Frederick Loya MD [address] [place] [address] 12/28/2024 10:30 AM EST Office Visit Gynecology/Obstetrics [facility] [address] [place] [address] Dee Dee [place] CRNP [address] [place] [address] Health Maintenance Due Date Last Done Comments [...] Author Reminders Care Plan OB Reminders No Madhu, Provider documented as of this encounter Medical [...] Unspecified abnormal findings on screening of mother Single umbilical artery, maternal, antepartum- Primary Other umbilical cord complications during labor and delivery, antepartum Ultrasound for screening for growth restriction screening for growth retardation using ultrasonics 31 weeks gestation of state, incidental documented in this encounter Additional Health Concerns Active Problems Noted Date Diagnosed Date OB Reminders 10/05/2024 documented as of this encounter
--- OUTSIDE RECORDS SUMMARY | 2024-12-21 09:15 | External Medical Summary ---
Author Name Unknown Address Unknown Organization [id number]:[facility]ATORY [facility] - [address] [place] [address] Laboratory Report Ordering Provider Test Date Status JYOTI CABRERARUTHY 10/05/2024 10:26:49 Final Observation Date Value Abnormality Reference (Units ) Status Glucose [Moles/volume] in Serum or Plasma --1 hour post 50 g glucose PO 10/05/2024 10:26:49 65 Below low normal 70-129 (mg/dL) Final Performing Location [facility]ATORY [facility] 0 - [address] [place] [address]
--- OUTSIDE RECORDS SUMMARY | 2024-12-21 09:15 | External Medical Summary ---
Author Name Unknown Address Unknown Organization [id number]:[facility] [place] [facility] [place] [address] [facility] [address] Laboratory Report Ordering Provider Test Date Status RICKBACKER 10/05/2024 10:26:49 Final Observation Date Value Abnormality Reference (Units ) Status SYNC LEUKOCYTES IN BLOOD BY AUTOMATED COUNT 10/05/2024 10:26:49 6.60 4.00-10.80 (K/uL) Final Segs 10/05/2024 10:26:49 73.0 40.0-75.0 (%) Final Lymphs % 10/05/2024 10:26:49 18.2 18.0-42.0 (%) Final Monos 10/05/2024 10:26:49 6.7 1.0-11.0 (%) Final Eosinophils 10/05/2024 10:26:49 0.9 0.0-6.0 (%) Final Basos 10/05/2024 10:26:49 0.3 0.0-2.0 (%) Final Immature Granulocyte, Percent 10/05/2024 10:26:49 0.9 0.0-2.0 (%) Final Absolute Segs 10/05/2024 10:26:49 4.82 1.80-7.70 (K/uL) Final Lymphs, absolute 10/05/2024 10:26:49 1.20 1.00-4.80 (K/ul) Final Monos, Abs 10/05/2024 10:26:49 0.44 0.00-1.10 (K/uL) Final Eos, Abs 10/05/2024 10:26:49 0.06 0.00-0.70 (K/uL) Final Basos, Abs 10/05/2024 10:26:49 0.02 0.00-0.20 (K/uL) Final Immature Granulocytes, Number 10/05/2024 10:26:49 0.06 0.00-0.20 (K/uL) Final Performing Location [facility] [place] [place] [address] [facility] [address]
--- OUTSIDE RECORDS SUMMARY | 2024-12-21 09:15 | External Medical Summary ---
Author Name Unknown Address Unknown Organization K01:LABORATORY [place] [address] [place] [address] Laboratory Report Ordering Provider Test Date Status MIKE CARRION 11/30/2024 11:51:06 Final Observation Date Value Abnormality Reference (Units ) Status Streptococcus agalactiae DNA [Presence] in Specimen by RICARDO with probe detection 11/30/2024 11:51:06 Negative Negative Final No Group B Streptococcus det ected by culture-enhanced PCR (amplified probe). GBS GBSCT - [facility] 11/30/2024 11:51:06 0.0 Final GBS SPCCT - [facility] 11/30/2024 11:51:06 33.2 Final Performing Location LABORATORY [facility] [place] - [facility] [place] [address]
--- OUTSIDE RECORDS SUMMARY | 2024-12-21 09:15 | External Medical Summary | Summary of Care ---
Author Name Unknown Organization [facility] Address [address] [place] [address] Phone [phone] Care Team Providers Care Expense Analyst Name Role Phone Unavailable Primary Care Provider Unavailabl e Encounter Details Date Type Department Care Team (Late st Contact Info) Description 10/27/2024 11:45 AM EST Office Visit Slip Cover Seamstress Obstetrics Maternal Medicine, [address] [address] Kenzie Waggoner, DO [address] [place] [address] Single umbilical artery, maternal, antepartum*; Ultrasound for [...] 2023. S/p Neurology with [facility]. Pt on blood thinners for [...] money to get more. Never true 05/05/2024 [place] Depression Scale Answer Date Recorded [place] Depression Scale Total 2 05/18/2024 The thought [...] Team (Late st Contact Info) Description 10/27/2024 1:00 PM EST Office Visit Gynecology/Obstetric s Frederick Patiño [address] [address] Frederick Loya MD [address] [address] History of section*; High-risk ; Vertebral artery dissection (HCC); Single umbilical artery, maternal, antepartum; Antepartum anemia complicating ; Low maternal serum vitamin B12 11/30/2024 4:15 PM EST Office Visit Gynecology/Obstetric s [facility] [address] [place] [address] Frederick Loya MD [address] [place] [address] 12/28/2024 10:30 AM EST [facility] [address] [place] [address] Dee Dee [place] CRNP [address] [place] [address] Health Maintenance Due Date Last Done Comments [...] Unspecified abnormal findings on screening of mother History of section- Primary Other postprocedural status High-risk Unspecified high-risk Vertebral artery dissection (HCC) Dissection of vertebral artery Single umbilical artery, maternal, antepartum Other umbilical cord complications during labor and delivery, antepartum Antepartum anemia complicating Anemia, antepartum Low maternal serum vitamin B12 Single umbilical artery, maternal, antepartum- Primary Other umbilical cord complications during labor and delivery, antepartum Ultrasound for screening for growth restriction screening for growth retardation using ultrasonics 31 weeks gestation of state, incidental documented in this encounter Additional Health Concerns Active Problems Noted Date Diagnosed Date OB Reminders 10/05/2024 documented as of this encounter
--- OUTSIDE RECORDS SUMMARY | 2024-12-21 09:15 | External Medical Summary | Summary of Care ---
Author Name Unknown Organization [facility] Address [address] [place] [address] Phone [phone] Care Team Providers Care Operations Support Coordinator Name Role Phone Unavailable Primary Care Provider Unavailabl e Reason for Visit * Reason Onset Date Comments Advice 12/05/2024 Encounter Details Date Type Department Care Team (Late st Contact Info) Description 12/05/2024 Telephone Gynecology/Obstetrics [facility] [address] [place] [address] Services, Scheduling [address] [place] [address] Advice Allergies No known active allergiesdocumented as of this encounter (statuses as of 12/05/2024) Medications 28-0.8 MG Oral Tablet Take by [...] as of this encounter (statuses as of 12/05/2024) Active Problems Problem Noted Date Diagnosed Date [...] Overview (05/25/2024): December 2023. S/p Neurology with [facility]. Pt on blood thinners for about [...] as of this encounter (statuses as of 12/05/2024) Resolved Problems Problem Noted Date Diagnosed Date [...] as of this encounter (statuses as of 12/05/2024) Immunizations Name Administration Dates Next Due Seasonal [...] money to get more. Never true 05/05/2024 [place] Depression Scale Answer Date Recorded [place] Depression Scale Total 2 05/18/2024 The thought [...] encounter Miscellaneous Notes * Telephone Encounter - Ivette Servin LPN - 12/05/2024 10:51 AM EST Patient with the stomach bug, asking if imodium is ok to take. * Telephone Encounter - Tameka Cohen OSA - 12/05/2024 10:41 AM EST Spoke to pt and pt has some question regarding her medications. Pt is requesting a nurse to talk regarding her about which trimester should she start taking the medications. Please assist . PH: [phone] Thank you documented in this encounter Plan of Treatment Upcoming Encounters Date Type Department Care Team (Late st Contact Info) Description 12/07/2024 8:15 AM EST [facility] [address] [place] [address] Luly Frye, DNP, CNM [address] [place] [place] [address] 12/28/2024 10:30 AM EST Office Visit Gynecology/Obstetrics Frederick Patiño [address] [place] [address] Backer, JAROD Lundy [address] [place] [place] [address] Health Maintenance Due Date Last Done Comments [...]
--- OUTSIDE RECORDS SUMMARY | 2024-12-21 09:15 | External Medical Summary | Summary of Care ---
Author Name Unknown Organization [facility] Address [address] [place] [address] Phone [phone] Care Team Providers Care Nurse Ob Name Role Phone Unavailable Primary Care Provider Unavailabl e Reason for Visit * Reason Comments Return Visit Encounter Details Date Type Department Care Team (Late st Contact Info) Description 11/30/2024 11:00 AM EST Office Visit Gynecology/Obstetric s [facility] [address] [facility] [place] [address] Frederick Loya MD [address] [place] [address] Yina Patiño [facility] [address] [place] [address] History of section*; High-risk in third trimester; Vertebral artery dissection (HCC); Single umbilical artery, maternal, antepartum; Antepartum anemia complicating ; Low maternal serum vitamin B12 Allergies No known active allergiesdocumented as of [...] Overview (05/25/2024): December 2023. S/p Neurology with [facility]. Pt on blood thinners for about [...] money to get more. Never true 05/05/2024 [place] Depression Scale Answer Date Recorded [place] Depression Scale Total 2 05/18/2024 The thought [...] Sign Reading Time Taken Comments Blood Pressure - - Pulse - - Temperature - - Respiratory Rate - - Oxygen Saturation - - Inhaled Oxygen Concentration - - Weight 73.9 kg (163 lb) 11/30/2024 11:04 AM EST Height 165.1 cm (5' 5") 11/30/2024 11:04 AM EST Body Mass Index 27.12 11/30/2024 11:04 AM EST documented in this encounter Progress Notes * Frederick Loya MD - 11/30/2024 11:50 AM EST Pt doing well 2 vessel cord Prior c/sec GBS culx. obtained No complaints RTC 1 week ASSESSMENT assessment with Non-stress Test completed on 11/30/2024 at 36weeks gestation for indication of 2 vessel umbilical cord heart baseline: 140 bpm Variability: Moderate Decelerations: absent Accelerations: present Contractions: Present but mild. NST start time: 11:06 NST stop time: 11;30 NST strip reviewed, interpreted, and approved by OB provider, rajeev. NST strip stored in clinic storage file Frederick Loya MD 11/30/2024 11:53 AM documented in this encounter H&P Notes * Frederick Loya MD - 11/30/2024 11:55 AM EST [address] [address] Appt line [phone] Fariha Mehta is a 29 year old year old year old at 36w2d Patient is . EstimatedDate of Delivery: 12/26/24 Here for H&P\\ 1 Prior c/sec x 2. Wishes to have another c/sec. Declined permanent sterilization 2. 2 vessel cord. OB History Para Term AB Living 3 2 2 2 SAB IAB Ectopic Multiple Live Births 2 # Outcome Date GA Lbr Isaias/2nd Weight Sex Type Anes PTL Lv 3 Current 2 Term 07/16/22 39w0d 3.402 kg (7 lb 8 oz) F CS-LTranv Spinal N JERILYN 1 Term 02/22/20 3.317 kg (7 lb 5 oz) F CS-LTranv EPI JERILYN Complications: Failure to Progress in Second Stage Date Labor Sex Delivery Anesth Del Comments GA Length Weight Type Site Medical Education Manager History: Menstrual Index: // days. Denies h/o STDs and abnormal Paps. Her past medical/surgical histories and current medications are recorded in the electronic record. Past Surgical History: Procedure Laterality Date DELIVERY 2021 Family History Problem Relation Name Age of Onset Hypertension Mother Thyroid Disorder Mother Hypertension Father Heart Disorder Grandfather (Paternal) Diabetes Daughter type 1 History Social History Socioeconomic History Marital status: Spouse name: Not on file Number of children: Not on file Years of education: Not on file Highest education level: Not on file Occupational History Not on file Tobacco Use Smoking status: Never Smokeless tobacco: Never Vaping Use Vaping status: Never Used Substance and Sexual Activity Alcohol use: Not Currently Drug use: Never Sexual activity: Yes Partners: Male Other Topics Concern Not on file Social History Narrative Not on file Social Needs Financial Resource Strain: Low Risk (05/05/2024) Financial Resource Strain Do you have any trouble paying for your medications, or do you think you might in the future? (Adult - for ages 18 years and over): No Does your family have trouble paying for medicine? (Household - for ages 0-17 years): Not on file Food Insecurity: No Food Insecurity (05/05/2024) Food Insecurity Worried About Running Out of Food in the Last Year: Never true Ran Out of Food in the Last Year: Never true Do you need food for this week? (Adult - for ages 18 years and over): No Transportation Needs: No Transportation Needs (05/05/2024) Transportation Needs Do you have trouble getting a ride to medical visits or work? (Adult - for ages 18 years and over):Not on file Does your family have a hard time getting a ride to doctors visits? (Household - for ages 0-17 years): Not on file Has lack of transportation kept you from medical appointments, meetings, work, or from getting things needed for daily living? Check all that apply. (Adult - for ages 18 years and over): No Do you (or your family) have trouble finding or paying for a ride (transportation)? (Household - for ages 0-17 years): Not on file Social Connections: Socially Integrated (05/05/2024) Social Connections How often do you feel lonely or isolated from those around you? (Adult - for ages 18 years and over): Never Housing Stability: Low Risk (05/05/2024) Housing Stability Do you currently live in a assisted or have no steady place to sleep at night? (Adult - for ages 18 years and over): No Do you think you are at risk of becoming homeless? (Adult - for ages 18 years and over): Not on file Does your family worry about paying for your home or becoming homeless? (Household - for ages 0-17 years): Not on file Are you homeless or worried that you might be in the future? (Adult - for ages 18 years and over): No Are you (or your family) homeless or worried that you might be in the future? (Household - for ages0-17 years): Not on file @ACTMEDS@ Physical Exam: Ht 1.651 m (5' 5") | Wt 73.9 kg (163 lb) | LMP 03/21/2024 (Exact Date) | BMI 27.12 kg/m | BSA 1.84 m CV: S1, S2. Regular rate and Rhythm Lungs: Clear to auscultation bilaterally. Abdomen: Soft with a gravid uterus and no palpable contractions. Fundal Height: 36cms heart rate: 140/min Extremities: Soft non tender calves bilaterally. A/P: 29 year old year old Prior c/sec x 2. Wishes to have another c/sec. Declined permanent sterilization 2 Vessel cord. NST Q weekly Pt is scheduled for repeat c/sec We have discussed the risk alternatives and complications of surgery including more surgery to correct complication,risk of anesthesia,infection,damage to internal organs and . We have also discussed the possibility that pt's present situation may not change. Pt is aware and wishes to proceed to surgery. Consent is signed Frederick Loya MD 11/30/2024 11:55 AM documented in this encounter Plan of Treatment Upcoming Encounters Date Type Department Care Team (Late st Contact Info) Description 12/28/2024 10:30 AM EST Office Visit Gynecology/Obstetrics [facility] [address] [address] Backer, Dee DeeJAROD Sampson [address] [address] Pending Results Name Type Priority Associated Diagnoses Date /Time GROUP B STREP CULTURE/PCR Lab Routine Antepartum anemia complicating 11/30/2024 11:51 AM EST Scheduled Orders Name Type Priority Associated Diagnoses Orde r Schedule GROUP B STREP CULTURE/PCR Lab Routine Antepartum anemia complicating Expected: 11/30/2024, Expires: 11/30/2025 Health Maintenance Due Date Last Done Comments [...] of section- Primary Other postprocedural status High-risk in third trimester Vertebral artery dissection (HCC) Dissection of vertebral artery Single umbilical artery, maternal, antepartum Other umbilical cord complications during labor and delivery, antepartum Antepartum anemia complicating Anemia, antepartum Low maternal serum vitamin B12 documented in this encounter Additional Health Concerns Active Problems Noted Date Diagnosed Date OB Reminders 10/05/2024 documented as of this encounter
--- OUTSIDE RECORDS SUMMARY | 2024-12-21 09:15 | External Medical Summary | Summary of Care ---
Author Name Unknown Organization [facility] Address [address] [place] [address] Phone [phone] Care Team Providers Care Large Engine Assembler Name Role Phone Unavailable Primary Care Provider Unavailabl e Reason for Visit * Reason Comments Return Visit Encounter Details Date Type Department Care Team (Late st Contact Info) Description 10/27/2024 1:00 PM EST Office Visit Gynecology/Obstetric [facility] [address] [place] [address] Frederick Loya MD [address] [place] [address] History of section*; High risk , antepartum; Vertebral artery dissection (HCC); Single umbilical artery, [...] Overview (05/25/2024): December 2023. S/p Neurology with [facility]. Pt on blood thinners for about 3 [...] money to get more. Never true 05/05/2024 [place] Depression Scale Answer Date Recorded [place] Depression Scale Total 2 05/18/2024 The thought [...] Sign Reading Time Taken Comments Blood Pressure 100/58 10/27/2024 12:42 PM EST Pulse - - Temperature - - Respiratory Rate - - Oxygen Saturation - - Inhaled Oxygen Concentration - - Weight - - Height 165.1 cm (5' 5") 10/27/2024 12:42 PM EST Body Mass Index - - documented in this encounter Progress Notes * Frederick Loya MD - 10/27/2024 1:00 PM EST Pt doing well Reviewed problem list Discussed and reviewed MF recommendation with pt Pt is a repeat c/sec x 2 RTc 2-3 week s * Adela Alvarez LPN - 10/27/2024 12:42 PM EST 31w3d Had MFM appt today documented in this encounter Plan of Treatment Upcoming Encounters Date Type Department Care Team (Late st Contact Info) Description 11/16/2024 9:30 AM EST [facility] [address] [place] [address] Nuha Naik CRNP [address] [place] [address] 11/30/2024 4:15 PM EST Office Visit Gynecology/Obstetrics [facility] [address] [place] [address] Frederick Loya MD [address] [place] [address] 12/28/2024 10:30 AM EST Office Visit Gynecology/Obstetrics [facility] [address] [place] [address] Dee Dee [place] CRNP [address] [place] [address] Health Maintenance Due Date Last Done Comments [...] History of section- Primary Other postprocedural status High risk , antepartum Vertebral artery dissection (HCC) Dissection of vertebral artery Single umbilical artery, maternal, antepartum Other umbilical cord complications during labor and delivery, antepartum Antepartum anemia complicating Anemia, antepartum Low maternal serum vitamin B12 documented in this encounter Additional Health Concerns Active Problems Noted Date Diagnosed Date OB Reminders 10/05/2024 documented as of this encounter
--- OUTSIDE RECORDS SUMMARY | 2024-12-21 09:15 | External Medical Summary | Summary of Care ---
Author Name Unknown Organization [facility] Address [address] [place] [address] Phone [phone] Care Team Providers Care Trucker Name Role Phone Unavailable Primary Care Provider Unavailabl e Reason for Visit * Reason Comments Return Visit Encounter Details Date Type Department Care Team (Late st Contact Info) Description 10/05/2024 9:45 AM EST Office Visit Gynecology/Obstetric s Frederick Patiño [address] [place] [address] Nuha Naik CRNP [address] [place] [address] High-risk in third trimester*; History of section; [...] money to get more. Never true 05/05/2024 Westover Depression Scale Answer Date Recorded Westover Depression Scale Total 2 05/18/2024 The thought [...] Sign Reading Time Taken Comments Blood Pressure 96/54 10/05/2024 9:31 AM EST Pulse - - Temperature - - Respiratory Rate - - Oxygen Saturation - - Inhaled Oxygen Concentration - - Weight 71.7 kg (158 lb) 10/05/2024 9:31 AM EST Height - - Body Mass Index 26.29 08/19/2024 9:09 AM EDT documented in this encounter Progress Notes * Nuha Naik CRNP - 10/05/2024 10:02 AM EST 28w2d Feeling lightheaded when standing up occasionally. Can occur when sitting as well. Questioning anemia. Having CBC drawn today with 28 week labs. Encouraged hydration as well. No other concerns. Baby is active. Denies contractions, bleeding, LOF. Glucola, TDAP today. JAROD Kaye * Marine Olivares CMA - 10/05/2024 9:31 AM EST 28w2d TDAP vaccine today. Getting lightheaded when standing up. Was anemic last . documented in this encounter Plan of Treatment Upcoming Encounters Date Type Department Care Team (Late st Contact Info) Description 10/27/2024 11:45 AM EST Imaging Maternal Medicine Imaging, Earnestine Patiño [address] [phone] 10/27/2024 1:00 PM EST Office Visit Gynecology/Obstetrics Frederick Baileys [address] [address] Frederick Loya MD [address] [address] Health Maintenance Due Date Last Done Comments [...] and delivery, antepartum documented in this encounter Additional Health Concerns Active Problems Noted Date Diagnosed Date OB Reminders 10/05/2024 documented as of this encounter
--- OUTSIDE RECORDS SUMMARY | 2024-12-21 09:15 | External Medical Summary ---
Author Name Unknown Address Unknown Organization K01:[facility] [place] - [address] [facility] [address] Laboratory Report Ordering Provider Test Date Status PATRICE CABRERA 10/05/2024 10:26:49 Final Observation Date Value Abnormality Reference (Units ) Status Vitamin B12 10/05/2024 10:26:49 166 Below low normal 2 32-1245 (pg/mL) Final Performing Location LABORATORY C - [address] [facility] [address]
--- OUTSIDE RECORDS SUMMARY | 2024-12-21 09:15 | External Medical Summary | Summary of Care ---
Author Name Unknown Organization [facility] Address [address] [place] [address] Phone [phone] Care Team Providers Care Hand Alterations Tailor Name Role Phone Unavailable Primary Care Provider Unavailabl e Reason for Visit * Reason Comments Return Visit Encounter Details Date Type Department Care Team (Late st Contact Info) Description 11/16/2024 9:30 AM EST Office Visit Gynecology/Obstetric s Frederick Patiño [address] [place] [address] Nuha Naik CRNP [address] [facility] [place] [address] High-risk in third trimester*; History of section; Vertebral artery dissection (HCC); Single umbilical artery, maternal, antepartum; Antepartum anemia complicating ; Low maternal serum vitamin B12 Allergies No known active allergiesdocumented as of this encounter (statuses as of 11/16/2024) Medications 28-0.8 MG Oral Tablet Take by [...] as of this encounter (statuses as of 11/16/2024) Active Problems Problem Noted Date Diagnosed Date [...] Overview (05/25/2024): December 2023. S/p Neurology with [facility]. Pt on blood thinners for [...] as of this encounter (statuses as of 11/16/2024) Resolved Problems Problem Noted Date Diagnosed Date [...] as of this encounter (statuses as of 11/16/2024) Immunizations Name Administration Dates Next Due Seasonal [...] money to get more. Never true 05/05/2024 Medina Depression Scale Answer Date Recorded Medina Depression Scale Total 2 05/18/2024 The thought [...] Reading Time Taken Comments Blood Pressure 108/62 11/16/2024 9:21 AM EST Pulse - - Temperature - - Respiratory Rate - - Oxygen Saturation - - Inhaled Oxygen Concentration - - Weight 73.1 kg (161 lb 3.2 oz) 11/16/2024 9:21 A M EST Height - - Body Mass Index 26.83 10/27/2024 12:42 PM EST documented in this encounter Progress Notes * Nuha Naik CRNP - 11/16/2024 9:48 AM EST 34w2d Complaints: noticing a few contractions in a day, never more than 1 in an hour. 2-3 at most in a day. Feeling well otherwise. GoodFM. No bleeding or LOF. To begin NSTs with next visit. JAROD Kaye * Marine Olivares CMA - 11/16/2024 9:21 AM EST 34w2d + random contractions documented in this encounter Plan of Treatment Upcoming Encounters Date Type Department Care Team (Late st Contact Info) Description 11/30/2024 11:30 AM EST Office Visit Gynecology/Obstetrics [facility] [address] [place] [address] Frederick Loya MD [address] [place] [address] 12/28/2024 10:30 AM EST Office Visit Gynecology/Obstetrics [facility] [address] [place] [address] Dee Dee [place] CRNP [address] [place] [address] Health Maintenance Due Date Last Done Comments [...] Author Reminders Care Plan OB Reminders No Myriamt, Provider documented as of this encounter Medical [...]
--- OUTSIDE RECORDS SUMMARY | 2024-12-21 09:16 | External Medical Summary | Summary of Care ---
Author Name Unknown Organization [facility] Address [address] [place] [address] Phone [phone] Care Team Providers Care Circle Shear Operator Name Role Phone Unavailable Primary Care Provider Unavailabl e Encounter Details Date Type Department Care Team (Late st Contact Info) Description 08/10/2024 9:30 AM EDT Office Visit Service Unit Operator Oil Well Obstetrics Maternal Medicine, [place] [address], [place] [phone] Dominik Ríos MD [address] [place], [place] [phone] Vertebral artery dissection (HCC)*; History of section; Single umbilical artery, maternal, antepartum; Unspecified abnormal findings on screening of mother Allergies No known active allergiesdocumented as of this encounter (statuses as of 08/10/2024) Medications Medication Sig Dispensed Refills Start Date End Date Status 28-0.8 MG Oral Tablet Take by mouth. Active Aspirin 81 MG Oral Capsule Take by mouth. Active documented as of this encounter (statuses as of 08/10/2024) Active Problems Problem Noted Date Diagnosed Date Single umbilical artery, maternal, antepartum Last Assessment & Plan: I reviewed the ultrasound with her. The [...] their understanding and signed the acknowledgement form. 9 weeks gestation of 05/24/2024 Last Assessment & Plan: -Continue with vitamins -For anatomy scan at 20 weeks -Continue with routine OB care Encounter for supervision of normal first in first trimester 05/18/2024 Vertebral artery dissection 05/18/2024 Overview: December 2023. S/p Neurology with [facility]. Pt on blood thinners for about [...] be dictated by the usual obstetric factors. Last Assessment & Plan: Considerations -Patient with a history of vertebral [...] be dictated by the usual obstetric factors. Antepartum anemia complicating 022 Overview: hgb 10.3 at 29 weeks, referral to blood mgmt History of section 12/12/2021 Last Assessment & Plan: -Patient with two prior delivery -Repeat CD planned for this -Continue with routine OB care -Delivery planning to be dictated by primary OB Estimated Date of Delivery Comme nts Yes 12/26/2024 Based on last me nstrual period of 03/21/2024 (Exact Date) documented as of this encounter (statuses as of 08/10/2024) Resolved Problems Problem Noted Date Diagnosed Date Resolved Date History of shoulder dystocia in prior 01/08/2022 07/24/2022 Overview: Unclear if patient had a shoulder dystocia [...] as of this encounter (statuses as of 08/10/2024) Immunizations Name Administration Dates Next Due Seasonal [...] money to get more. Never true 05/05/2024 Fajardo Depression Scale Answer Date Recorded Fajardo Depression Scale Total 2 05/18/2024 The thought [...] No 05/05/2024 Does the household have a [facility] source of income? (Household - for ages [...] Assigned at Female 05/07/2022 8:34 AM EDT Gender Identity Female 05/07/2022 8:34 AM EDT Sexual Orientation Straight 05/07/2022 8: 34 AM EDT Job Start Date Occupation Industry Not on file Not on file Not on file documented as of this encounter Progress Notes * Dominik Ríos MD - 08/10/2024 9:33 AM EDT MATERNAL MEDICINE VISIT Fariha Claudy Mehta is at 20w2d who presents to [facility] for an ultrasound and follow-up of her high risk . The patient is currently 20 weeks and 2 days gestation who was status post a vertebral artery dissection. She currently is on low-dose aspirin. She comes in for an evaluation of anatomy. 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 The anatomy that was visualized appears unremarkable, with the exception of a two-vessel umbilical cord. The biometry is appropriate for the gestational age and the amniotic fluid volume is subjectively normal. We discussed the diagnosis of a single umbilical artery. RECOMMENDATIONS: Reviewed that an isolated two vessel cord is considered a normal variant of and occurs inup to 1% of pregnancies. In the absence of any other abnormalities noted on ultrasound, thereis not an increased incidence of chromosome abnormalities beyond the baseline age-related risk. There is a slightly increased incidence, however, of growth restriction and stillbirth. Recommend Maternal Medicine ultrasound for growth at 28-32 weeks. Recommend weekly NSTs at 36 weeks. As required by [place] Act 112, the Patient Test Result Information Act, I have discussed withthe patient the significant findings from the diagnostic imaging service performed today. They haveexpressed their understanding and signed the acknowledgement form. Recommend delivery at 39 weeks gestation. Thank you for allowing us to participate in the care of this patient. Please call with any questions. I spent 20 minutes with Ms. Mehta of which greater than 50% was spent in face to face consultationand coordination of care for the above. Dominik Ríos MD 08/10/2024 9:34 AM documented in this encounter Miscellaneous Notes * Assessment & Plan Note - Dominik Ríos MD - 08/10/2024 9:58 AM EDT Associated Problem(s): Single umbilical artery, maternal, antepartum I reviewed the ultrasound with her. The anatomy that was visualized appears unremarkable, with the exception of a two-vessel umbilical cord. The biometry is appropriate for the gestational age and the amniotic fluid volume is subjectively normal. We discussed the diagnosis of a single umbilical artery. RECOMMENDATIONS: Reviewed that an isolated two vessel cord is considered a normal variant of and occurs inup to 1% of pregnancies. In the absence of any other abnormalities noted on ultrasound, thereis not an increased incidence of chromosome abnormalities beyond the baseline age-related risk. There is a slightly increased incidence, however, of growth restriction and stillbirth. Recommend Maternal Medicine ultrasound for growth at 28-32 weeks. Recommend weekly NSTs at 36 weeks. As required by [place] Act 112, the Patient Test Result Information Act, I have discussed withthe patient the significant findings from the diagnostic imaging service performed today. They haveexpressed their understanding and signed the acknowledgement form. documented in this encounter Plan of Treatment Upcoming Encounters Date Type Department Care Team (Late st Contact Info) Description 08/19/2024 9:00 AM EDT Office Visit Gynecology/Obstetrics [facility] [address] [facility] [place] [address] Tatianna Lopez PA-C [address] [address] 10/28/2024 9:45 AM EST Office Visit Service Unit Operator [facility] Well Obstetrics Maternal Medicine, [place] [address] [place] [address] Alex Mckoy DO [address] [place] [address] 10/28/2024 9:45 AM EST Imaging Radiology [place] [address], [place] [phone] Scheduled Orders Name Type Priority Associated Diagnoses Orde r Schedule MFM US PREG FOLLOW UP EACH FETUS Medical Imaging Routine Vertebral artery dissection (HCC) History of section Unspecified abnormal findings on screening of mother Expected: 08/10/2024, Expires: 09/10/2025 Health Maintenance Due Date Last Done Comments [...] Unspecified abnormal findings on screening of mother documented in this encounter
--- OUTSIDE RECORDS SUMMARY | 2024-12-21 09:16 | External Medical Summary | Summary of Care ---
Author Name Unknown Organization [facility] Address [address] [place] [address] Phone [phone] Care Team Providers Care Disposal Plant Operator Name Role Phone Unavailable Primary Care Provider Unavailabl e Reason for Visit * Reason Comments Return Visit Encounter Details Date Type Department Care Team (Late st Contact Info) Description 07/22/2024 3:15 PM EDT Office Visit Gynecology/Obstetric s Frederick Patiño [address] [place] [address] Nuha Naik CRNP [address] [facility] [place] [address] Encounter for supervision of normal first in second trimester*; History of section; Vertebral artery dissection (HCC); 9 weeks gestation of Allergies No known active allergiesdocumented as of this encounter (statuses as of 07/22/2024) Medications Medication Sig Dispensed Refills Start Date End Date Status 28-0.8 MG Oral Tablet Take by mouth. Active Aspirin 81 MG Oral Capsule Take by mouth. Active documented as of this encounter (statuses as of 07/22/2024) Active Problems Problem Noted Date Diagnosed Date 9 weeks gestation of 05/24/2024 Last Assessment & Plan: -Continue with vitamins -For anatomy scan at 20 weeks -Continue with routine OB care Encounter for supervision of normal first in first trimester 05/18/2024 Vertebral artery dissection 05/18/2024 Overview: December 2023. S/p Neurology with [facility]. Pt on blood thinners for about [...] as of this encounter (statuses as of 07/22/2024) Resolved Problems Problem Noted Date Diagnosed Date [...] as of this encounter (statuses as of 07/22/2024) Immunizations Name Administration Dates Next Due Seasonal [...] money to get more. Never true 05/05/2024 Livingston Depression Scale Answer Date Recorded Livingston Depression Scale Total 2 05/18/2024 The thought [...] on file documented as of this encounter Last Filed Vital Signs Vital Sign Reading Time Taken Comments Blood Pressure 94/64 07/22/2024 3:05 PM EDT Pulse - - Temperature - - Respiratory Rate - - Oxygen Saturation - - Inhaled Oxygen Concentration - - Weight 64.4 kg (142 lb) 07/22/2024 3:05 PM EDT Height 165.1 cm (5' 5") 07/22/2024 3:05 PM EDT Body Mass Index 23.63 07/22/2024 3:05 PM EDT documented in this encounter Progress Notes * Nuha Naik CRNP - 07/22/2024 3:13 PM EDT 17w4d Feeling well. +quickening. No bleeding. Has anatomy u/s scheduled with [facility]. JAROD Kaye documented in this encounter Nursing Notes * Ny Olson LPN - 07/22/2024 3:08 PM EDT 17w4d Denies concerns documented in this encounter Plan of Treatment Upcoming Encounters Date Type Department Care Team (Late st Contact Info) Description 08/10/2024 9:30 AM EDT Office Visit Processing Technician Obstetrics Maternal Medicine, [place] [address] [place] [address] Dominik Ríos MD [address] [place] [address] 08/10/2024 9:30 AM EDT Imaging [facility], [place] [address] [place] [address] 08/19/2024 9:00 AM EDT Office Visit Gynecology/Obstetrics [facility] [address] [facility] [place] [address] Tatianna Lopez PA-C [address] [facility] [place] [address] Health Maintenance Due Date Last Done Comments [...] as of this encounter Visit Diagnoses Diagnosis Encounter for supervision of normal first in second trimester- Primary Supervision of normal first History of section Other postprocedural status Vertebral artery dissection (HCC) Dissection of vertebral artery 9 weeks gestation of state, incidental documented in this encounter
--- OUTSIDE RECORDS SUMMARY | 2024-12-21 09:16 | External Medical Summary | Summary of Care ---
Author Name Unknown Organization [facility] Address [address] [place] [address] Phone [phone] Care Team Providers Care Book Critic Name Role Phone Unavailable Primary Care Provider Unavailabl e Reason for Visit * Reason Comments Return Visit Encounter Details Date Type Department Care Team (Late st Contact Info) Description 08/19/2024 9:00 AM EDT Office Visit Gynecology/Obstetric s Frederick Patiño [address] [place] [address] Tatianna Lopez PA-C [address] [place] [address] History of section*; Encounter for supervision of normal first in first trimester; Vertebral artery dissection (HCC); 9 weeks gestation of Allergies No known active allergiesdocumented as of this encounter (statuses as of 08/19/2024) Medications Medication Sig Dispensed Refills Start Date End Date Status 28-0.8 MG Oral Tablet Take by mouth. Active Aspirin 81 MG Oral Capsule Take by mouth. Active documented as of this encounter (statuses as of 08/19/2024) Active Problems Problem Noted Date Diagnosed Date [...] 05/18/2024 Overview: December 2023. S/p Neurology with [facility]. Pt on blood thinners for about [...] as of this encounter (statuses as of 08/19/2024) Resolved Problems Problem Noted Date Diagnosed Date [...] as of this encounter (statuses as of 08/19/2024) Immunizations Name Administration Dates Next Due Seasonal [...] money to get more. Never true 05/05/2024 Busby Depression Scale Answer Date Recorded Busby Depression Scale Total 2 05/18/2024 The thought [...] Sign Reading Time Taken Comments Blood Pressure 104/60 08/19/2024 9:09 AM EDT Pulse - - Temperature - - Respiratory Rate - - Oxygen Saturation - - Inhaled Oxygen Concentration - - Weight 67.1 kg (148 lb) 08/19/2024 9:09 AM EDT Height 165.1 cm (5' 5") 08/19/2024 9:09 AM EDT Body Mass Index 24.63 08/19/2024 9:09 AM EDT documented in this encounter Progress Notes * Tatianna Lopez PA-C - 08/19/2024 9:21 AM EDT 21w4d No complaints. Anatomy complete at MFM, 2 vessel cord. Plans NST at 36 weeks. Repeat C/S, unsure family status complete. Denies VB, LOF, contractions. + quickening. RTC in 4 weeks Tatianna Lopez PA-C documented in this encounter Nursing Notes * Ny Olson LPN - 08/19/2024 9:10 AM EDT 21w4d Denies concerns documented in this encounter Plan of Treatment Upcoming Encounters Date Type Department Care Team (Late st Contact Info) Description 09/16/2024 11:30 AM EST Office Visit Gynecology/Obstetrics [facility] [address] [place] [address] Dee Dee [place] CRNP [address] [facility] [place] [address] 10/28/2024 9:45 AM EST Office Visit Roughing Mill Operator Obstetrics Maternal Medicine, [place] [address] [place] [address] Alex Mckoy [address] [place] [facility] [place] [address] 10/28/2024 9:45 AM EST Imaging Radiology [facility], [place] [address] [place] [address] Health Maintenance Due Date Last Done Comments [...] as of this encounter Visit Diagnoses Diagnosis History of section- Primary Other postprocedural status Encounter for supervision of normal first in first trimester Supervision of normal first Vertebral artery dissection (HCC) Dissection of vertebral artery 9 weeks gestation of state, incidental documented in this encounter
[2024-12-21] MEDS ORDERED: NALOXONE HCL 1 MG in SODIUM CHLORIDE 0.9% 1,000 ML IV PRN (09:19)
[2024-12-21] MEDS ORDERED: MoRPHine SULFATE 2 MG/ML CARP IV PRN (09:19)
[2024-12-21] MEDS ORDERED: HYDROmorphone INJ 0.5 MG/0.5 ML SYR IV PRN (09:19)
[2024-12-21] MEDS ORDERED: ePHEDrine sulfate 50 MG/ML AMP IV PRN (09:19)
[2024-12-21] MEDS ORDERED: diphenhydrAMINE 50 MG/ML VIAL IV PRN ×2 (09:19→09:33)
[2024-12-21] MEDS ORDERED: MEPERIDINE HCL 25 MG/ML CARP/VIAL IV PRN (09:19)
[2024-12-21] MEDS ORDERED: NALOXONE HCL 0.4 MG/1 ML VIAL/CARP IV PRN (09:19)
[2024-12-21] MEDS ORDERED: oxyCODONE HCL IR 5 MG TAB (IMMEDIATE RELEASE) PO PRN (09:19)
[2024-12-21] MEDS ORDERED: PROMETHAZINE 6.25 MG/50.25 ML BAG IV PRN (09:19)
[2024-12-21] MEDS ORDERED: ONDANSETRON INJ 2 MG/ML 2 ML VIAL IV PRN ×2 (09:19→09:33)
[2024-12-21] MEDS ORDERED: NALOXONE HCL 0.08 MG in SYRINGE 1.8 ML IV PRN (09:19)
[2024-12-21] MEDS ORDERED: MoRPHine SULFATE PF 1 MG/ML 10 ML AMP/VIAL INT SPINAL ONE (09:19)
[2024-12-21] MEDS ORDERED: NALBUPHINE HCL INJ 10 MG/ML AMP IV PRN (09:19)
[2024-12-21] MEDS: KETOROLAC 30 MG/ML VIAL ONE (09:20)
--- NOTE | 2024-12-21 09:21 | Anesthesiology Progress Note ---
Date of Service December 21, 2024 Anesthesia Post Procedure Vital Signs Vital Signs: Temp Pulse Resp BP Pulse Ox 12/21/24 09:18 74 96/58 L 99 12/21/24 09:16 79 94 12/21/24 09:13 78 96 12/21/24 09:10 77 93 12/21/24 09:08 96 12/21/24 09:08 80 12/21/24 09:08 75 101/60 12/21/24 07:03 36.4 C L 85 20 99/62 L 12/21/24 05:44 36.8 C 18 12/21/24 05:35 81 111/63 Transfer of Care Handoff Completed per policy Notes Mental Status: alert / awake / arousable Patient Amnestic to Procedure: Yes Nausea / Vomiting: adequately controlled Pain: adequately controlled Airway Patency, RR, SpO2: stable & adequate BP & HR: stable & adequate Hydration State: stable & adequate Neuraxial Anesthesia: was administered and sensory block is resolving Anesthetic Complications: no major complications apparent and Pt Satisfied with anesthetic care
[2024-12-21] MEDS ORDERED: DC INTRASPINAL MORPHINE SCH (09:30)
[2024-12-21] MEDS ORDERED: NO NARCOTICS OR SEDATIVES SCH (09:30)
[2024-12-21] MEDS ORDERED: PROMETHAZINE 12.5 MG/50.5 ML BAG IV PRN (09:33)
[2024-12-21] MEDS ORDERED: SENNA 8.6 MG TAB PO PRN (09:33)
[2024-12-21] MEDS ORDERED: HYDROCORTISONE ACETATE 25 MG SUPP PR PRN (09:33)
[2024-12-21] MEDS ORDERED: CALCIUM CARBONATE 500 MG CHEWABLE TAB PO PRN (09:33)
[2024-12-21] MEDS ORDERED: diphenhydrAMINE Capsule 25 MG CAP PO PRN (09:33)
[2024-12-21] MEDS ORDERED: BENZOCAINE 20% SPRY 85 APPLN/85 GM CAN EXT PRN (09:33)
--- NOTE | 2024-12-21 09:33 | Post Operative Brief Note ---
Immediate Post Op Note Date of Surgery December 21, 2024 Pre & Post Diagnosis Operation Date: 12/21/24 07:30 Pre-Op Diagnosis: (1) S/P repeat low transverse : Plan: Elective repeat I identified the patient and participated in the time-out.: Yes Procedure Operation Date: 12/21/24 07:30 Actual Procedures p Section in LD with result of Live male child at 0808 - Brennan Mejias MD Surgeon Brennan Mejias MD Mending Carrier [place] Estimated Blood Loss 803 Findings Consistent with Post-Op Diagnosis live male Apgars 8/9 weight 7-14 Fluids 1600 ml LR Specimens placenta Drains Palencia Catheter (Placed in OR, draining clear yellow urine.) Anesthesia Type Spinal Complications none Disposition Accompanied Patient To Recovery: Yes Overlapping Procedure I was present for: the critical portions of procedure. I was immediately available: during the entire case. Back up surgeon: was not required during procedure.
[2024-12-21] MEDS: DIPHTHER/TETAN/PERTUS Vaccine (Tdap, Adol/Adult) 0.5mL IM ONE (10:29)
[2024-12-21] MEDS: HYDROmorphone INJ 0.5 MG/0.5 ML SYR IV STA (11:01)
--- NOTE | 2024-12-21 11:25 | Operative Report ---
Post Operative Report Pre & Post Diagnosis Operation Date: 12/21/24 07:30 Pre-Op Diagnosis: (1) S/P repeat low transverse : Plan: Elective repeat Post-Op Diagnosis: Pre-Op Diagnosis: (1) S/P repeat low transverse : Plan: Elective repeat I identified the patient and participated in the time-out.: Yes Procedure Operation Date: 12/21/24 07:30 Actual Procedures p Section in with result of Live male child at 0808 - Brennan Mejias MD Surgeon Brennan Mejias MD Enrollment Management Coordinator ADAMS Espinoza Estimated Blood Loss 803 Findings Consistent with Post-Op Diagnosis Live male vertex presentation Apgars 8/9 weight 7 pounds 10 ounces Fluids LR 1600 mL Specimens Placenta Drains None Anesthesia Type Spinal Complications None Disposition Accompanied Patient To Recovery: Yes Indications Elective repeat section Description of Procedure Under satisfactory spinal anesthesia the patient was identified, she was prepped draped in the usual sterile fashion. Antibiotics were given preop and a timeout was called. A low Pfannenstiel incision was made carried down the incision through the previous incision in successive layers of the abdomen without difficulty. Upon entering into the peritoneal cavity it was noted that there were dense adhesions from the bladder flap to the midportion of the upper uterus. These adhesions were lysed with sharp dissection using Metzenbaum scissors. Following this a low segment transverse incision over the lower uterine segment was made the incision was then widened in the AP diameter and the amniotic sac was then nicked with an Allis clamp and clear fluid was noted. The was then delivered from the vertex presentation with the aid of fundal pressure. The delivery was accomplished without difficulty delivering a live male there was delayed cord clamping Apgars were 8 and 9 at 1 and 5 minutes and the weight was 7 pounds 10 ounces. Cord blood was obtained. The placenta was then removed manually and intact and submitted to pathology as a separate specimen. The uterus was then exteriorized ring forceps were then placed on both angles and the inferior margin on the lap pad was used to clean the anterior over the uterus of all clots and debris. Pitocin was started in the IV. The uterus was closed in a double layer closure starting with 0 Vicryl suture in a continuous interlocking fashion followed by a second imbricating suture of 0 Vicryl suture. Uterus was then firm. It was noted at the site of the previous lysis of adhesions that there was some oozing these bleeding points were then cauterized with the Bovie. Several sutures were used in a [id number] suture to control the oozing and Ativan was placed at the site of the adhesions along with Surgicel. No further bleeding was encountered the uterus was placed back into the normal anatomical position. The fascia was then reapproximated using 0 Vicryl suture in continuous fashion. Subcuticular space was then closed with 3-0 plain suture interrupted.. The skin was then reapproximated with 4-0 Monocryl subcuticular stitch. Steri-Strips were then applied. Dressing was then applied. At the end of the procedure the final sponge needle and instrument counts were correct. The QBL was 803 mL the total urine output was 175 mL of clear urine, the total fluids were 1600 mL. The patient was then placed supine on a stretcher and she was taken to recovery room in stable condition. I attest to the content of the Intraoperative Record and any orders documented therein. Any exceptions are noted below. Please note no qualified resident was present. Backup surgeon was not needed. Please note that ADAMS Espinoza was needed to provide assistance at delivery of the baby, retraction, and closure of the uterus and abdomen.
[2024-12-21] MEDS: SODIUM CHLORIDE 0.9% 1,000 ML IV SCH (13:49)
[2024-12-21] MEDS: SIMETHICONE 80 MG CHEW PO SCH (13:59)
[2024-12-21] MEDS ORDERED: Nursing to Pharmacy Communication SCH (14:00)
[2024-12-21] MEDS: ACETAMINOPHEN 325 MG TAB PO SCH (14:59)
[2024-12-21] MEDS: KETOROLAC 30 MG/ML VIAL IV SCH (15:00)
[2024-12-21] MEDS: OXYTOCIN 20 UNITS/LR 1,002 ML IV SCH (16:15)
[2024-12-21] MEDS: DOCUSATE SODIUM 100 MG CAP PO SCH (20:50)
[2024-12-21 23:50] VITALS: RESP 16
[2024-12-22] MEDS ORDERED: HYDROmorphone INJ 0.5 MG/0.5 ML SYR IV PRN (03:20)
[2024-12-22 06:38] LABS: Basophils # (auto) 0.03 K/uL (0.00-0.20); Basophils % (auto) 0.3 %; Eosinophils # (auto) 0.04 K/uL (0.00-0.50); Eosinophils % (auto) 0.4 %; Hematocrit (blood only) 30.5 % (37.0-47.0); Immature Granulocytes # (auto) 0.06 K/uL (0.01-0.20); Immature Granulocytes % (auto) 0.5 %; Lymphocytes % (auto) 8.1 %; Mean Corpuscular Hemoglobin 28.7 pg (25.0-34.0); Mean Corpuscular Hgb Conc 32.8 g/dL (32.0-36.0); Mean Corpuscular Volume 87.6 fL (80.0-100.0); Mean Platelet Volume 8.9 fL (9.4-12.4); Monocytes # (auto) 0.78 K/uL (0.11-0.59); Neutrophils # (auto) 9.37 K/uL (1.40-6.50); Neutrophils % (auto) 83.7 %; Platelet Count 167 K/uL (130-400); RDW Coefficient of Variation 14.4 % (11.5-14.5); RDW Standard Deviation 46.3 fL (36.4-46.3); Red Blood Count 3.48 M/uL (4.20-5.40); White Blood Count 11.18 K/ul (4.8-10.8)
[2024-12-22] MEDS: PRENATAL VITAMIN 1 TAB PO SCH (08:12)
[2024-12-22] MEDS: FERROUS SULFATE 325 MG TAB PO SCH (08:13)
--- NOTE | 2024-12-22 08:49 | Obstetrical Progress Note ---
Date of Service December 22, 2024 Assessment & Plan Admission and Anticipated Discharge Date Admission Date: December 21, 2024 Subjective Patient is seen and examined. She feels well, no complaints. Pain is under control with oral meds. Ambulating without dizziness Voiding without difficulty Tolerating regular diet with out N&V Flatus none Bleeding is minimal No fever/ chills/ CP/ SOB/ N&V/ Leg pain Breast feeding without problems Vital Signs Temp Pulse Resp BP Pulse Ox O2 Del Method 12/22/24 03:50 36.3 C L 95 H 16 98/62 L 97 Room Air 12/22/24 03:20 16 98 12/22/24 02:30 16 97 12/22/24 01:53 16 98 12/22/24 00:30 14 97 12/21/24 23:49 36.7 C 97 H 16 102/69 97 Room Air 12/21/24 23:25 14 97 12/21/24 22:56 16 97 12/21/24 21:30 14 98 Lab Results 12/21/24 12/22/24 Range/Units 05:36 06:10 WBC 6.24 11.18 H (4.8-10.8) K/ul RBC 4.26 3.48 L (4.20-5.40) M/uL Hgb 12.3 10.0 L (12.0-16.0) g/dl Hct 37.1 30.5 L (37.0-47.0) % MCV 87.1 87.6 (80.0-100.0) fL MCH 28.9 28.7 (25.0-34.0) pg MCHC 33.2 32.8 (32.0-36.0) g/dL RDW Std Deviation 45.4 46.3 (36.4-46.3) fL RDW Coeff of Sondra 14.2 14.4 (11.5-14.5) % Plt Count 203 167 (130-400) K/uL MPV 8.9 L 8.9 L (9.4-12.4) fL Immature Gran % (Auto) 0.5 % Neut % (Auto) 83.7 % Lymph % (Auto) 8.1 % [place] % (Auto) 7.0 % Eos % (Auto) 0.4 % Baso % (Auto) 0.3 % Neut # (Auto) 9.37 H (1.40-6.50) K/uL Lymph # (Auto) 0.90 L (1.20-3.40) K/uL [place] # (Auto) 0.78 H (0.11-0.59) K/uL Eos # (Auto) 0.04 (0.00-0.50) K/uL Baso # (Auto) 0.03 (0.00-0.20) K/uL Immature Gran # (Auto) 0.06 (0.01-0.20) K/uL Treponema pallidum Ab Negative (Negative) Blood Type O Positive Antibody Screen NEGATIVE PE: General: Alert, orientedx3, NAD CVS: S1S2 RRR Lungs; CTAB Abd: soft, NT, ND, BS+, fundus firm, below Umbilicus Incision/ Dressing: Clean, dry, intact Perineum intact, Lochia rubra minimal Ext; NT, no edema AP: 29 yo s/p C Section, pod# 1 VSS Afebrile doing well Continue routine postop care Encourage ambulation, PO intake All questions were answered D/C home tomorrow Results & Data Vital Signs (Past 12 Hours) Vital Signs Temp Pulse Resp BP Pulse Ox O2 Del Method 12/22/24 03:50 36.3 C L 95 H 16 98/62 L 97 Room Air 12/22/24 03:20 16 98 12/22/24 02:30 16 97 12/22/24 01:53 16 98 12/22/24 00:30 14 97 12/21/24 23:49 36.7 C 97 H 16 102/69 97 Room Air 12/21/24 23:25 14 97 12/21/24 22:56 16 97 12/21/24 21:30 14 98
[2024-12-22] MEDS: DOCUSATE SODIUM 100 MG CAP PO SCH (09:02)
[2024-12-22] MEDS: ASCORBIC ACID 500 MG TAB PO SCH (11:25)
[2024-12-22] MEDS ORDERED: KETOROLAC 30 MG/ML VIAL IV PRN (15:00)
[2024-12-22] MEDS: IBUPROFEN 600 MG TAB PO SCH (15:13)
[2024-12-22] MEDS: oxyCODONE HCL IR 5 MG TAB (IMMEDIATE RELEASE) PO PRN (17:52)
[2024-12-22] MEDS: bisacodyL 5 MG TABEC PO SCH (20:32)
[2024-12-22 23:16] VITALS: O2SAT 97
[2024-12-23 07:26] LABS: Hematocrit (blood only) 29.6 % (37.0-47.0); Hemoglobin 9.7 g/dl (12.0-16.0)
[2024-12-23] MEDS ORDERED: ACETAMINOPHEN 325 MG TAB PO PRN ×2 (09:08→12:00)
[2024-12-23] MEDS ORDERED: bisacodyL 10 MG SUPP PR PRN (09:29)
[2024-12-23 10:10] VITALS: BP 112/73; PULSE 89; TEMP 98.1
--- NOTE | 2024-12-23 10:46 | Obstetrical Progress Note ---
Date of Service December 23, 2024 Subjective Ambulation: ambulating normally Voiding: no voiding problems Passing Gas:: Yes Diet Tolerance:: regular diet Lochia:: Small Feeding Type:: breast feeding Current Pain Level(1-10): 0 doing well. plans for d/c today Physical Exam Constitutional WD/WN, vitals as above Gastrointestinal (Abdomen) Inspection/Auscultation: abdomen normal to inspection incision c/d/i abdomen soft and non-tender. fundus firm below U Musculoskeletal Extremities: extremities normal to inspection Skin no rashes, warm and dry Neurologic patellar DTR's 2+ bilat, sensation intact Psychiatric A+Ox3, euthymic affect Results & Data Vital Signs (Past 12 Hours) Vital Signs Temp Pulse Resp BP Pulse Ox O2 Del Method 12/23/24 08:51 36.7 C 89 16 112/73 97 Room Air 12/22/24 23:11 36.4 C L 90 16 108/70 97 Room Air Laboratory Results 12/21/24 12/22/24 12/23/24 05:36 06:10 07:07 WBC 6.24 11.18 H RBC 4.26 3.48 L Hgb 12.3 10.0 L 9.7 L Hct 37.1 30.5 L 29.6 L MCV 87.1 87.6 MCH 28.9 28.7 MCHC 33.2 32.8 RDW Std Deviation 45.4 46.3 RDW Coeff of Sondra 14.2 14.4 Plt Count 203 167 MPV 8.9 L 8.9 L Immature Gran % (Auto) 0.5 Neut % (Auto) 83.7 Lymph % (Auto) 8.1 [place] % (Auto) 7.0 Eos % (Auto) 0.4 Baso % (Auto) 0.3 Neut # (Auto) 9.37 H Lymph # (Auto) 0.90 L [place] # (Auto) 0.78 H Eos # (Auto) 0.04 Baso # (Auto) 0.03 Immature Gran # (Auto) 0.06 Treponema pallidum Ab Negative Blood Type O Positive Antibody Screen NEGATIVE
[2024-12-23] MEDS: MAGNESIUM HYDROXIDE SUSP 30 ML UDC PO PRN (13:17)
[2024-12-23] MEDS: IBUPROFEN 600 MG TAB PO PRN (15:28)
== END 2024-12-23 15:32 | disposition home or self-care (01) | DRG 788 ==
LOC: 4S1 05:25 → EDSTATUS 07:30 → 4E2 12:15